=== PATIENT | male | born 1955 | race Caucasian/White ===

== ENCOUNTER 2016-07-22 15:35 | Inpatient (IN) | payer OTHER, MEDICAID ==
[~2016-07-22 15:35] MED LIST: NS 1,000 ML IV ONE
--- NOTE | 2016-07-22 15:47 | CPEKG ---
Heart Rate: 102 RR Interval: 588 P-R Interval: 196 QRSD Interval: 100 QT Interval: 380 QTC Interval: 496 P Buckland: 73 QRS Buckland: -62 T Wave Buckland: 68 EKG Severity - ABNORMAL ECG - EKG Impression: SINUS TACHYCARDIA EKG Impression: PROBABLE LEFT ATRIAL ABNORMALITY EKG Impression: LAD, CONSIDER LEFT ANTERIOR FASCICULAR BLOCK EKG Impression: BORDERLINE R WAVE PROGRESSION, ANTERIOR LEADS EKG Impression: BORDERLINE PROLONGED QT INTERVAL Electronically Signed By: Cee Lake 22-Jul-2016 16:25:08
--- NOTE | 2016-07-22 15:47 | EDPHY ---
H & P Time Seen by Provider: 07/22/16 15:35 HPI/ROS: CHIEF COMPLAINT: Seizure, AMS HISTORY OF PRESENT ILLNESS: The patient is a homeless 61 y/o male arriving via EMS, with a history of schizoaffective disorder, after a witnessed seizure this afternoon. EMS reports he was [facility] out [facility] the [facility] and bystanders witnessed tonic-clonic seizure activity. EMS says another crew contacted him this morning after a similar event, but he was able to refuse care at that time. This afternoon EMS found him disoriented without evidence of trauma or neuro deficits and transported him to the ED because the patient did not regain normal orientation. EMS further states that the patient earlier reported he has been off his Depakote since his release from residential 4 weeks ago. He tells me he does not have a seizure disorder, but has had at least one seizure previously. He denies any complaints, recent illness, or trauma, but also reports he's had chronic dyspnea and cough for over a year. His answers are suspect at this time as he answers most questions with "yes." REVIEW OF SYSTEMS: Unable to determine due to patient's disorientation. Past Medical/Surgical History: PMH includes: 1. Schizoaffective disorder 2. Hepatitis B and C Prior medical records reviewed including ED visit 07/05/13 for chest pain. Social History: Homeless. Smoker. PCP: [facility]. Physical Exam: General Appearance: Alert, no distress, SpO2 78% on room air Eyes: Pupils equal and round, no conjunctival pallor or injection ENT, Mouth: Mucous membranes moist Neck: Normal inspection Respiratory: Lungs are clear to auscultation Cardiovascular: Tachycardic regular rate and rhythm Gastrointestinal: Abdomen is soft and non-tender Neurological: A&Ox1, motor 5/5, sensory intact to light touch Skin: Warm and dry, no rash Extremities: Nontender, no pedal edema Psychiatric:flat affect Constitutional: Initial Vital Signs Temperature (C) 36.5 C 07/22/16 15:41 Heart Rate 109 H 07/22/16 15:41 Respiratory Rate 20 07/22/16 15:41 Blood Pressure 170/94 H 07/22/16 15:41 O2 Sat (%) 85 L 07/22/16 15:41 O2 Delivery Mode Nasal Cannula O2 (L/minute) 3 Allergies/Adverse Reactions: chlorpromazine HCl [From Thorazine] Allergy (Verified 12/18/12 13:04) codeine [Codeine] Allergy (Verified 12/18/12 13:04) Home Medications: Medication Instructions Recorded Acetaminophen [Tylenol Arthritis] 1,300 mg PO Q8 PRN 07/23/16 Albuterol [Ventolin Hfa Inhaler] 2 puffs IH Q4 PRN 07/23/16 Amoxicillin/Clavulanate Pot 875 mg PO BID #7 tab 07/23/16 [Augmentin 875 MG TAB (*)] Benztropine Mesylate [Cogentin] 1 mg PO BID PRN 07/23/16 Citalopram [CeleXA 20 MG] 20 mg PO DAILY 07/23/16 Divalproex [Depakote 500 MG (RX)] 1,000 mg PO BID #120 tab 07/23/16 LORazepam [Ativan (*)] 0.5 - 1 mg PO HS 07/23/16 Lidocaine 5% [Lidoderm 5% Patch 1 ea TD DAILY 07/23/16 (*)] Propranolol Sr [Inderal LA 80mg 80 mg PO DAILY 07/23/16 (*)] risperiDONE MICROSPHERES 37.5 mg IM Q14D 07/23/16 [Risperdal Consta 37.5 mg (*)] risperiDONE [RisperDAL] 1 mg PO HS #30 tab 07/23/16 Medical Decision Making - Diagnostics EKG Interpretation: The 12 lead EKG was interpreted by myself. EKG shows sinus tachycardia rate 102 with poor R-wave progression. See hard copy and/or "tracemaster" electronic copy for interpretation. Imaging Results: CXR independently reviewed by me reveals RLL infiltrate CT head reveals subtle frontal hypodensities per the radiologist Imaging: Discussed imaging studies w/ score caller Radiologist ED Course/Re-evaluation: This is a homeless 60 y/o male with a history of schizophrenia who presents to the ED disoriented after his 2nd reported seizure today. He is unable to contribute much to history due to disorientation. No visible trauma on exam. Nonfocal neuro exam other than disorientation. He is tachycardiac around 110 and initially hypoxemic at 85%. His lung sounds are clear. Plan for standard labs, EKG, and imaging to rule out chest infiltrate and acute intracranial process. I believe these are new onset seizures or possibly withdrawal seizures as we have no record of seizure disorder in our records. He will receive 500mg IV Keppra in the ED and likely require admission for further evaluation of his recurrent seizures. IV established by EMS. Labs drawn including CBC, CHEM, LFTs, EtOH, cultures. Patient placed on court monitor. Chest x-ray and head CT ordered. Hgb high at 20.2 - this is likely due to chronic hypoxemia. Chest x-ray shows right lower lobe infiltrate. 750mg IV Levaquin administered. Does not meet SIRS criteria. lactate nor ordered, since recent seizure will cause elevated lactate. Head CT shows nothing acute per Dr. Orta; possible hypodensity worth following up with an MRI at some point. EKG shows sinus tachycardia with poor R- wave progression. 1653: Spoke with Dr. Perrin, hospitalist. He accepts admission for recurrent seizures and pneumonia. 1700: Reassessed patient. He is more oriented at this time. He reports he does have a seizure disorder and is supposed to take a medication for this but he cannot remember the name of it. Differential Diagnosis: includes though not limited to status epilepticus, pulmonary embolism, pulmonary edema, hypoglycemia, ICH - Data Points Laboratory Results: Laboratory Results 07/22/16 15:40 07/22/16 15:40 Medications Given: Discontinued Medications Acetaminophen (Tylenol) 650 mg PO Q4HRS PRN PRN Reason: Pain, Mild/Fever, Can Take PO Stop: 01/18/17 17:52 Last Admin: 07/22/16 23:41 Dose: 650 mg Albuterol (Proventil Neb) 3 ml IH ONCE ONE Stop: 07/22/16 17:52 Last Admin: 07/22/16 17:57 Dose: 3 ml Albuterol/Ipratropium (Duoneb) 3 ml IH QID NARCISO Stop: 01/18/17 17:55 Last Admin: 07/23/16 15:57 Dose: 3 ml Divalproex Sodium (Depakote Er) 2,000 mg PO HS NARCISO Stop: 01/19/17 15:29 Last Admin: 07/23/16 16:42 Dose: 2,000 mg Enoxaparin Sodium (Lovenox) 40 mg SC DAILY NARCISO Stop: 01/19/17 08:59 Last Admin: 07/23/16 09:01 Dose: 40 mg Levetiracetam 500 mg/ Sodium (Chloride) 105 mls @ 420 mls/hr IV EDNOW ONE Stop: 07/22/16 16:08 Last Admin: 07/22/16 16:09 Dose: 105 mls Levofloxacin/Dextrose (Levaquin 750 Mg (Premix)) 150 mls @ 100 mls/hr IV EDNOW ONE PRN Reason: Protocol Stop: 07/22/16 18:18 Last Admin: 07/22/16 17:03 Dose: 150 mls Sodium Chloride (Ns) 1,000 mls @ 0 mls/hr IV ONCE ONE PRN Reason: Wide Open Stop: 07/22/16 15:31 Last Admin: 07/22/16 19:47 Dose: Not Given Ampicillin Sodium/Sulbactam (Sodium 3 gm/ Sodium Chloride) 100 mls @ 200 mls/ hr IV EDNOW ONE PRN Reason: Protocol Stop: 07/22/16 18:20 Last Admin: 07/22/16 19:47 Dose: Not Given Sodium Chloride (Ns) 1,000 mls @ 75 mls/hr IV CONT NARCISO Stop: 07/24/16 07:19 Last Admin: 07/23/16 11:13 Dose: 1,000 mls Ampicillin Sodium/Sulbactam (Sodium 3 gm/ Sodium Chloride) 100 mls @ 200 mls/ hr IV Q6HRS NARCISO PRN Reason: Protocol Stop: 08/22/16 00:00 Last Admin: 07/23/16 17:22 Dose: Not Given Levetiracetam (Keppra) 500 mg PO BID NARCISO Stop: 01/19/17 08:59 Last Admin: 07/23/16 09:01 Dose: 500 mg Propranolol HCl (Inderal La) 80 mg PO DAILY NARCISO Stop: 01/19/17 15:29 Last Admin: 07/23/16 16:43 Dose: 80 mg Risperidone (Risperdal) 1 mg PO HS NARCISO Stop: 01/19/17 15:29 Last Admin: 07/23/16 16:43 Dose: 1 mg Risperidone (Risperdal Consta) 37.5 mg IM Q14D NARCISO Stop: 01/19/17 15:29 Last Admin: 07/23/16 16:29 Dose: Not Given Departure - Departure Disposition: [facility] Clinical Impression: Seizure Pneumonia Qualifiers: Pneumonia type: due to unspecified organism Laterality: right Lung location: middle lobe of lung Qualified Code(s): J18.1 - Lobar pneumonia, unspecified organism Condition: Fair Report Scribed for: Cee Lake Report Scribed by: Karis Davenport Date of Report: 07/22/16 Time of Report: 15:48 Physician Review and Approval Statement: 07/22/16 15:48 Portions of this note were transcribed by a medical anthropology director. I personally performed a history, physical exam, medical decision making, and confirmed accuracy of information the transcribed note.
[2016-07-22 15:53] LABS: ADD DIFF? NO; ADD MORPH? NO; ADD SCAN? NO; ATYPICAL LYMPHOCYTE FLAG 0 (0-99); FRAGMENT RBC FLAG 0 (0-99); HEMATOCRIT 58.9 % (40.0-51.0); LEFT SHIFT FLG 20 (0-99); LIPEMIA HEMOLYSIS FLAG 90 (0-99); MEAN CELL HEMOGLOBIN 30.9 pg (27.9-34.1); MEAN CELL HEMOGLOBIN CONCENTR. 34.3 g/dL (32.4-36.7); MEAN CELL VOLUME 90.2 fL (81.5-99.8); MEAN PLATELET VOLUME 11.3 fL (8.7-11.7); PLATELET CLUMPS FLAG 10 (0-99); PLATELET COUNT 184 10^3/uL (150-400); RED BLOOD CELL COUNT 6.53 10^6/uL (4.40-6.38); RED CELL DISTRIBUTION WIDTH 13.7 % (11.5-15.2)
[2016-07-22] MEDS ORDERED: levETIRAcetam 500 MG in NS 100 ML IV ONE (15:54)
[2016-07-22 15:59] LABS: HEMOGLOBIN 20.2 g/dL (13.7-17.5)
[2016-07-22 16:11] LABS: ALANINE AMINOTRANSFERASE 61 IU/L (21-72); ALBUMIN 5.1 g/dL (3.5-5.0); ALKALINE PHOSPHATASE 106 IU/L (38-126); ANION GAP 22 mEq/L (8-16); ASPARTATE AMINOTRANSFERASE 82 IU/L (17-59); BILIRUBIN,TOTAL 1.3 mg/dL (0.1-1.4); BILIRUBIN-CONJUGATED 0.5 mg/dL (0.0-0.5); BILIRUBIN-UNCONJUGATED 0.8 mg/dL (0.0-1.1); CALCIUM 9.6 mg/dL (8.5-10.4); CARBON DIOXIDE 20 mEq/l (22-31); CHLORIDE 97 mEq/L (97-110); CREATININE 0.7 mg/dL (0.7-1.3); GLOMERULAR FILTRATION RATE > 60; GLUCOSE 141 mg/dL (70-100); POTASSIUM 3.9 mEq/L (3.5-5.2); SODIUM 139 mEq/L (134-144); TOTAL PROTEIN 8.9 g/dL (6.3-8.2)
[2016-07-22 16:21] LABS: ETHANOL SERUM < 10 mg/dL (0-10)
[2016-07-22] MEDS ORDERED: ALBUTEROL 3 ML DEYVIAL IH ONE (17:51)
[2016-07-22] MEDS ORDERED: AMPICILLIN/SULBACTAM 3 GM in NS 100 ML IV ONE (17:51)
[2016-07-22] MEDS ORDERED: ACETAMINOPHEN 325 MG TAB PO PRN (17:53)
[2016-07-22] MEDS ORDERED: ONDANSETRON 4 MG/2 ML VIAL IVP PRN (17:53)
[2016-07-22] MEDS ORDERED: ONDANSETRON DISINTEGRATING 4 MG TAB PO PRN (17:53)
[2016-07-22] MEDS ORDERED: ALBUTEROL 3 ML DEYVIAL IH PRN (17:56)
[2016-07-22] MEDS: IPRATROPIUM/ALBUTEROL 3 ML DEYVIAL IH SCH ×2 (20:15→22:28)
--- NOTE | 2016-07-22 21:24 | GHP ---
[f rep st] HISTORY AND PHYSICAL DATE OF ADMISSION: 07/22/2016 CHIEF COMPLAINT: Seizure. HISTORY OF PRESENT ILLNESS: The patient is postictal and little bit somnolent and thus history is l imited as he was not very talkative. He is a 60-year-old male with a history of schizoaffective dis order, is homeless. He also has a history of chronic marijuana use and cocaine in the past. Appare ntly he had a witnessed seizure this afternoon. He was walking out of the [facility] and bystanders saw a tonic-clonic seizure. This was after he had a previous seizure in the morning in [facility] he called EMS, but he refused care. Apparently, patient reported that he had been off his Depa kote since his release from [facility] 4 weeks ago. He states that he has had a seizure several years ago prior. He also complains of some shortness of breath and cough. He is not very forthcoming. He d enies any fevers or chills. He denies alcohol use. He denies any drug use other than marijuana. H e denies any headache, focal weakness, fevers or chills. REVIEW OF SYSTEMS: Limited review of systems was obtained secondary to the patient's postictal stat e. Pertinent positives as noted in the HPI. PAST MEDICAL HISTORY: 1. Schizoaffective disorder. 2. Hepatitis B and C. SOCIAL HISTORY: Homeless. Smokes marijuana daily. FAMILY HISTORY: Unable to obtain. PHYSICAL EXAMINATION: VITAL SIGNS: Afebrile, blood pressure 124 heart rate is 95, oxyge n saturation was 85% on room air and on 2 L. GENERAL: The patient is somnolent, but sheila kes with some vigorous stimuli, but no apparent distress HEENT: Nonicteric sclerae. Extraocular m uscles intact. Moist mucous membranes. NECK: Supple. No thyromegaly. LUNGS: Good effort. Some coarse expiratory wheezes and some scattered rhonchi. CARDIOVASCULAR: Regular rate and rhythm. N o murmurs, gallops. ABDOMEN: Positive bowel sounds. Soft, nontender, nondistended. No hepatosple nomegaly. EXTREMITIES: No clubbing, cyanosis, or edema. SKIN: There is a petechial small papular rash on his upper shoulders. He has a winnie complexion. NEUROLOGIC: Answers questions, moving al l 4 extremities. PSYCH: Unable to be assessed. LABORATORY: White count 9, hemoglobin is 20 with a hematocrit of 58. Sodium 139, potassium 3.9, al cohol level is negative. CT scan of the head: There is a subtle hyperdensity in the frontal subcortical white matter which co uld be microvascular ischemic disease, but could also have other etiology. Chest x-ray shows some interstitial prominence bilaterally. Personally reviewed and interpreted. ASSESSMENT: 1. This is a 60-year-old male presenting with 2 seizures today. Plan: The patient has been given Keppra and will continue this in the emergency department. I am not sure what the cause of this is. Stopping Depakote 4 weeks ago is probably too far out. He denies alcohol use but his AST is littl e bit elevated at 82. His alcohol is negative. There is an abnormality in his CT scan. We will go ahead and get an MRI. We will get a neurology consult in the morning as well. 2. Probable chronic obstructive pulmonary disease exacerbation. We will add nebulizer treatments. I am going to hold off on steroids. His primary element of infection is bronchitis as well and tab l add IV Unasyn. 3. Possible early pneumonia. Will continue on Unasyn to cover aspiration and for bronchitis. 4. Polycythemia. The patient is probably chronically hypoxic due to chronic obstructive pulmonary disease. Probably related to his marijuana use. Will have a phlebotomy done to try to bring his he matocrit down a little bit. Will give a little bit of IV fluids today and see where his hemoglobin is tomorrow. We may do a therapeutic phlebotomy. 5. Schizoaffective disorder. 6. Hepatitis B and C. 7. Homelessness. 8. Chronic marijuana use. 9. Admission: The patient will be admitted under full admission status. Case was discussed with the emergency room physician. Old records are reviewed and summarized in e history of present illness. /[id number]/MODL
[2016-07-22] MEDS: NS 1,000 ML IV SCH (22:19)
[2016-07-22] MEDS: AMPICILLIN/SULBACTAM 3 GM in NS 100 ML IV SCH (23:41)
[2016-07-23] MEDS ORDERED: DIVALPROEX NA 500 MG TAB PO SCH
[2016-07-23 05:16] LABS: % IMMATURE GRANULYOCYTES 0.3 % (0.0-1.1); ABSOLUTE IMMATURE GRANULOCYTES 0.02 10^3/uL (0.00-0.10); ADD DIFF? NO; ADD MORPH? NO; ADD SCAN? NO; FRAGMENT RBC FLAG 0 (0-99); LEFT SHIFT FLG 0 (0-99); LIPEMIA HEMOLYSIS FLAG 90 (0-99); MEAN CELL HEMOGLOBIN 31.5 pg (27.9-34.1); MEAN CELL HEMOGLOBIN CONCENTR. 35.1 g/dL (32.4-36.7)
[2016-07-23 05:31] LABS: ALANINE AMINOTRANSFERASE 49 IU/L (21-72); ALBUMIN 3.1 g/dL (3.5-5.0); ALKALINE PHOSPHATASE 79 IU/L (38-126); ANION GAP 8 mEq/L (8-16); ASPARTATE AMINOTRANSFERASE 41 IU/L (17-59); BILIRUBIN,TOTAL 0.6 mg/dL (0.1-1.4); CALCIUM 8.4 mg/dL (8.5-10.4); CARBON DIOXIDE 24 mEq/l (22-31); CHLORIDE 104 mEq/L (97-110); CREATININE 0.6 mg/dL (0.7-1.3); GLOMERULAR FILTRATION RATE > 60; GLUCOSE 222 mg/dL (70-100); POTASSIUM 3.6 mEq/L (3.5-5.2); SODIUM 136 mEq/L (134-144); TOTAL PROTEIN 5.8 g/dL (6.3-8.2)
[2016-07-23] MEDS: AMPICILLIN/SULBACTAM 3 GM in NS 100 ML IV SCH ×4 (05:31→17:22)
[2016-07-23 05:34] LABS: ATYPICAL LYMPHOCYTE FLAG 20 (0-99); HEMATOCRIT 45.9 % (40.0-51.0); HEMOGLOBIN 16.1 g/dL (13.7-17.5); MEAN CELL VOLUME 89.8 fL (81.5-99.8); MEAN PLATELET VOLUME 11.8 fL (8.7-11.7); PLATELET CLUMPS FLAG 0 (0-99); PLATELET COUNT 133 10^3/uL (150-400); RED BLOOD CELL COUNT 5.11 10^6/uL (4.40-6.38); RED CELL DISTRIBUTION WIDTH 13.7 % (11.5-15.2)
[2016-07-23] MEDS: IPRATROPIUM/ALBUTEROL 3 ML DEYVIAL IH SCH ×3 (05:50→15:57)
[2016-07-23] MEDS ORDERED: ENOXAPARIN 40 MG/0.4 ML SYR SC SCH (09:00)
[2016-07-23] MEDS ORDERED: levETIRAcetam 500 MG TAB PO SCH (09:00)
[2016-07-23] MEDS: NS 1,000 ML IV SCH (11:13)
[2016-07-23 11:52] VITALS: BP 99/67; TEMP 98.6
[2016-07-23] MEDS ORDERED: NON-FORMULARY NEW DRUG (Albuterol 2 PUFFS) IH PRN (15:09)
[2016-07-23] MEDS ORDERED: BENZTROPINE MESYLATE 1 MG TAB PO PRN (15:09)
[2016-07-23] MEDS ORDERED: PROPRANOLOL SR 80 MG CAP PO SCH (15:30)
[2016-07-23] MEDS ORDERED: risperiDONE 1 MG TAB PO SCH ×2 (15:30)
[2016-07-23] MEDS ORDERED: risperiDONE MICROSPHERES 37.5 MG/2 ML SYR IM SCH (15:30)
[2016-07-23] MEDS ORDERED: DIVALPROEX ER 500 MG TAB PO SCH (15:30)
[2016-07-23] MEDS ORDERED: ALBUTEROL 60 PUFFS/8 GM MDI IH PRN (15:34)
--- NOTE | 2016-07-23 15:55 | GDS ---
[f rep st] DISCHARGE SUMMARY DIAGNOSES: 1. Seizure. 2. History of schizophrenia. 3. Possible pneumonia. 4. Homelessness. 5. Polycythemia. 6. Chronic obstructive pulmonary disease. HOSPITAL COURSE: A 60-year-old man who presented after having 2 seizures. He had been [facility] a month ago and had stopped taking his Depakote at that point. This is likely the etiology. Will restart him on Depakote, 1 g b.i.d. per Neurology's recommendations, and have him follow up [facility] Dr. Ray of Neurology. He has schizoaffective disorder. I do not believe that he has been taking his Risperdal recently. I prescribed this for him. I do not think that he is gravely disabled at this point. Possible aspiration pneumonia. Will give him an additional 7 days of Augmentin. He received Unasyn as an inpatient. Given his acute presentation, I think he recovered more quickly than would have been expected. BILLING: I spent more than 30 minutes on the day of discharge coordinating care. /[id number]/MODL
[2016-07-23 16:03] VITALS: PULSE 79; RESP 20; O2SAT 93
--- NOTE | 2016-07-23 16:07 | NEUROPROG ---
Assessment: CC: Dr. Cathy Perrin consulted neurology for new onset seizure. Results placed in the EMR for his review. HPI: This 60M patient was initially seen 07/23/16 as an inpatient consult at [facility] for a new onset seizure on 07/22/16. He reported he was released from retirement 4 weeks ago and stopped depakote at that time (history of previous seizures in years past). He had two generalized seizures on 07/22/16 so was brought to the ER and admitted with post-ictal confusion. He denied drug use other than marijuana recently. Hospitalist note reported he may have COPD and possibly early pneurmonia as well. The patient himself does not provide much additinoal history. PMHx: schizoaffective disorder, Hep B and C, COPD? SHx: homeless, chronic marijuana user ROS: Pt denied acute fever, total vision loss, active severe chest pain, respiratory failure, total body severe rash, total bowel/bladder incontinence, psychosis, active seizures, or active bleeding O: (Please note, pt declined most testing and would not come out of the shower for 1 hour, with the help of the nurse he stepped out of the shower but would not allow a full examination. I feel likely his psychiatric disorder is the cause of this strange behavior) VS bp 124/67 P 83 RR16 Satting 92% on 3L NC Temp 36.8C General: no acute distress Eyes: cannot visualized optic disk Heart: pt declined testing Lungs: pt declined testing Neurologic Exam: Mental Status: alert, oriented to name but pt will not provide any other information CN: eyes conjugate, no facial weakness seen, hearing intact, no dysarthria (pt declined all other testing) Motor: no focal weakness seen, pt declined further testing Sensory: pt declined testing Coord: no ataxia seen Gait: normal casual gait Reflexes: pt declined testing Labs: 07/23/16- CBC Plt 133L, alcohol neg, CMP Cr 0.6L GLuc 222 Ca 8.4L Tot Prot 5.8L Alb 3.1L Rads: 07/22/16- Brain MRI w/o con: mod CMVD (I personally visualized the images on 07/23) Assessment: 1. Seizure Disorder: normal brain MRI on 07/22/16. High re-occurrence risk so recommend AED's at this time. 2. Homeless 3. Schizoaffective Disorder Plan: - Change Keppra 500mg bid (which can worsen psych disease) to Depakote 1,000mg bid as he was on this before and it can address seizures and psych disease - Seizure precautions and no driving until seizure free for 90 days - F/U in neurology clinic in 2-4 weeks, consider EEG at that time Neurology will sign off, please feel free to contact me for any questions or needs Objective: Vital Signs Temp Pulse Resp BP Pulse Ox 37.0 C 84 18 99/67 L 98 07/23/16 11:51 07/23/16 11:51 07/23/16 11:51 07/23/16 11:51 07/23/16 11:51 Laboratory Results 07/23/16 04:45 07/23/16 04:45 07/22/16 07/23/16 07/24/16 05:59 05:59 05:59 Intake Total 2900 Output Total 900 Balance 2900 -900 Allergies/Adverse Reactions: chlorpromazine HCl [From Thorazine] Allergy (Verified 12/18/12 13:04) codeine [Codeine] Allergy (Verified 12/18/12 13:04)
[2016-07-23] MEDS ORDERED: LORazepam 1 MG TAB PO SCH (21:00)
[2016-07-24] MEDS ORDERED: LIDOCAINE 5% 1 EA PATCH TD SCH (09:00)
[2016-07-24] MEDS ORDERED: CITALOPRAM 20 MG TAB PO SCH (09:00)
== END 2016-07-23 18:38 | disposition home or self-care (01) | DRG 100 ==
LOC: EDUNIT# → F3N 18:18
PROVIDERS: ADMIT Internal Medicine; ATTEND Internal Medicine
DX: R56.9 Unspecified convulsions (principal); J69.0 Pneumonitis due to inhalation of food and vomit; J44.9 Chronic obstructive pulmonary disease, unspecified; D75.1 Secondary polycythemia; Z59.0 Homelessness; F12.90 Cannabis use, unspecified, uncomplicated; F25.9 Schizoaffective disorder, unspecified; B19.10 Unspecified viral hepatitis B without hepatic coma; B19.20 Unspecified viral hepatitis C without hepatic coma
CPT/HCPCS: 96365; G0480; J0295; J1650; J1953; J1956

== ENCOUNTER 2016-07-26 13:14 | Emergency (ER) | payer OTHER, MEDICAID ==
[2016-07-26 14:04] LABS: % IMMATURE GRANULYOCYTES 0.4 % (0.0-1.1); ABSOLUTE IMMATURE GRANULOCYTES 0.03 10^3/uL (0.00-0.10); ADD DIFF? NO; ADD MORPH? NO; ADD SCAN? NO; ATYPICAL LYMPHOCYTE FLAG 20 (0-99); FRAGMENT RBC FLAG 0 (0-99); HEMATOCRIT 52.2 % (40.0-51.0); HEMOGLOBIN 18.2 g/dL (13.7-17.5); LEFT SHIFT FLG 10 (0-99); LIPEMIA HEMOLYSIS FLAG 90 (0-99); MEAN CELL HEMOGLOBIN 30.9 pg (27.9-34.1); MEAN CELL HEMOGLOBIN CONCENTR. 34.9 g/dL (32.4-36.7); MEAN CELL VOLUME 88.6 fL (81.5-99.8); MEAN PLATELET VOLUME 10.9 fL (8.7-11.7); PLATELET CLUMPS FLAG 10 (0-99); PLATELET COUNT 156 10^3/uL (150-400); RED BLOOD CELL COUNT 5.89 10^6/uL (4.40-6.38); RED CELL DISTRIBUTION WIDTH 13.7 % (11.5-15.2)
[2016-07-26 14:28] LABS: ANION GAP 10 mEq/L (8-16); CALCIUM 9.4 mg/dL (8.5-10.4); CARBON DIOXIDE 28 mEq/l (22-31); CHLORIDE 99 mEq/L (97-110); CREATININE 0.6 mg/dL (0.7-1.3); ETHANOL SERUM < 10 mg/dL (0-10); GLOMERULAR FILTRATION RATE > 60; GLUCOSE 170 mg/dL (70-100); SODIUM 137 mEq/L (134-144)
--- NOTE | 2016-07-26 14:31 | EDPHY ---
Mental Health General Previous Psychiatric History: schizophrenia Smoking Status: Current every day smoker Time Patient Placed on M1 Hold: 12:13 Time of Transfer of Care: 16:[address] To Dr:: Madeleine <Cira Law - Last Filed: 07/26/16 16:08> Time of Transfer of Care: 22:32 To Dr:: tarsha <Andrei Salvador - Last Filed: 07/26/16 22:31> <Valentino Botello E - Last Filed: 07/27/16 05:30> <Filippo Palencia S - Last Filed: 07/27/16 14:24> Narrative: CHIEF COMPLAINT: M1 hold HISTORY OF PRESENT ILLNESS: 60-year-old male presents to the emergency department on an M1 hold after he presented to [facility] talking nonsensically with rapid speech not making sense. Patient has a history of schizophrenia. He is homeless. Patient has a seizure disorder. He will intermittently answer my questions. He states he is taking his medications as prescribed. Patient reports he has "head to toe body pain". Patient was admitted to the hospital 3 days ago for to witnessed seizures. He has a seizure history and stopped taking his Depakote 4 weeks prior to arrival [facility] Patient was seen by Neurology in the hospital and discharged with a prescription for Depakote and Risperdal along with Augmentin to treat a pneumonia. REVIEW OF SYSTEMS: Unable to obtain due to mental status. Physical Exam Gen: Awake, disheveled, sunburn to face and hands HEENT: PERRL, dry mucous membranes NECK: no meningismus CV: Regular rate and regular rhythm PULM: CTAB, no wheezes, coughs with deep breath ABDOMEN: soft, non tender to palpation, BS present BACK: No CVA tenderness NEURO: Follows commands, moves all extremities, no facial asymmetry EXTREMITIES: normal appearing SKIN: Sunburn to face and hands PSYCH: Speaking nonsensically, rapid speech. (Cira Law) The patient is turned over to Dr. Botello at shift change pending placement. (Andrei Salvador) Care the patient was assumed from Dr. Botello at 7:00 a.m.. Inpatient placement is pending. I reviewed Dr. Ailyn Olguin discharge summary dated 01/29 which he was given a diagnosis at discharge of schizoaffective disorder after inpatient psychiatric hospitalization. 725: Patient is discharged chart reviewed and he was prescribed Augmentin 875 p. o. twice daily #7 Tablets on the 23 of July at previous discharge. He is given what should be is last dose this morning. 1150: Received 10 mg IM Haldol for continued agitation despite additional oral 5 mg Zyprexa. Additional medications including 2 mg Ativan. 1247: The patient will be transferred to [facility] for inpatient psychiatric hospital bed not available at this facility, in stable condition; accepting physician is Dr. Chris Jordan. (Filippo Palencia) Medical Decision Makin-Report passed on to Dr. Salvador at the end of my shift pending mental health evaluation. (Cira Law) PHYSICIAN DOCUMENTATION: The patient was evaluated and managed by the Physician [facility]. My co- signature indicates that I have reviewed this chart and I agree with the findings and plan of care as documented. I am the secondary supervising physician. The patient presents to the ED for abnormal behavior from presumed underlying psychiatric disease. The patient has been medically cleared for psychiatric admission. The update at 5:00 p.m.: The patient was evaluated by the psychiatric service who is recommending inpatient psychiatric hospitalization. Disposition currently pending. (Andrei Salvador) The patient's care was transferred to ms at 11:00 p.m.. The patient was becoming mildly combative. He was given Zyprexa and Ativan. He has been evaluated and medically cleared and is currently awaiting psychiatric placement. We will also give him his home medications. Patient slept through the night. No significant complaints. We continue to await psychiatric placement. Care transferred to Dr. Filippo Palencia at shift change. (Valentino Botello) - Objective Vital Signs: Initial Vital Signs Temperature (C) 36.8 C 07/26/16 13:36 Heart Rate 113 H 07/26/16 13:36 Respiratory Rate 18 07/26/16 13:36 Blood Pressure 146/93 H 07/26/16 13:36 O2 Sat (%) 93 07/26/16 13:36 O2 Delivery Mode Room Air Allergies/Adverse Reactions: chlorpromazine HCl [From Thorazine] Allergy (Verified 12/18/12 13:04) codeine [Codeine] Allergy (Verified 12/18/12 13:04) Home Medications: Medication Instructions Recorded Acetaminophen [Tylenol Arthritis] 1,300 mg PO Q8 PRN 07/23/16 Albuterol [Ventolin Hfa Inhaler] 2 puffs IH Q4 PRN 07/23/16 Amoxicillin/Clavulanate Pot 875 mg PO BID #7 tab 07/23/16 [Augmentin 875 MG TAB (*)] Benztropine Mesylate [Cogentin] 1 mg PO BID PRN 07/23/16 Citalopram [CeleXA 20 MG] 20 mg PO DAILY 07/23/16 Divalproex [Depakote 500 MG (RX)] 1,000 mg PO BID #120 tab 07/23/16 LORazepam [Ativan (*)] 0.5 - 1 mg PO HS 07/23/16 Lidocaine 5% [Lidoderm 5% Patch 1 ea TD DAILY 07/23/16 (*)] Propranolol Sr [Inderal LA 80mg 80 mg PO DAILY 07/23/16 (*)] risperiDONE MICROSPHERES 37.5 mg IM Q14D 07/23/16 [Risperdal Consta 37.5 mg (*)] risperiDONE [RisperDAL] 1 mg PO HS #30 tab 07/23/16 Medications Given: Discontinued Medications Amoxicillin/Clavulanate Potassium (Augmentin 875mg) 875 mg PO EDNOW ONE PRN Reason: Protocol Stop: 07/27/16 00:25 Last Admin: 07/27/16 00:42 Dose: 875 mg Amoxicillin/Clavulanate Potassium (Augmentin 875mg) 875 mg PO EDNOW ONE PRN Reason: Protocol Stop: 07/27/16 07:27 Last Admin: 07/27/16 09:27 Dose: 875 mg Divalproex Sodium (Depakote) 1,000 mg PO BID NARCISO Stop: 01/23/17 00:29 Last Admin: 07/27/16 09:27 Dose: 1,000 mg Haloperidol Lactate (Haldol Injection) 10 mg IVP EDNOW ONE Stop: 07/27/16 11:45 Last Admin: 07/27/16 11:40 Dose: 10 mg Lorazepam (Ativan Injection) 1 mg IVP EDNOW ONE Stop: 07/26/16 23:52 Last Admin: 07/26/16 23:56 Dose: 1 mg Lorazepam (Ativan) 2 mg PO EDNOW ONE Stop: 07/27/16 12:50 Last Admin: 07/27/16 12:53 Dose: 2 mg Olanzapine (Zyprexa Zydis) 5 mg PO EDNOW ONE Stop: 07/26/16 23:51 Last Admin: 07/26/16 23:56 Dose: 5 mg Olanzapine (Zyprexa Zydis) 5 mg PO EDNOW ONE Stop: 07/27/16 10:42 Last Admin: 07/27/16 10:50 Dose: 5 mg Olanzapine (Olanzapine) 5 mg PO ONCE ONE Stop: 07/27/16 11:00 Last Admin: 07/27/16 11:10 Dose: Not Given Olanzapine (Zyprexa Zydis) 5 mg PO EDNOW ONE Stop: 07/27/16 11:11 Last Admin: 07/27/16 11:11 Dose: 5 mg Risperidone (Risperdal) 1 mg PO ONCE ONE Stop: 07/27/16 00:22 Last Admin: 07/27/16 00:42 Dose: 1 mg Laboratory Results: Laboratory Results 07/26/16 13:50 07/26/16 13:50 Departure <Cira Law - Last Filed: 07/26/16 16:08> <Andrei Salvador - Last Filed: 07/26/16 22:31> <Valentino Botello - Last Filed: 07/27/16 05:30> <Filippo Palencia - Last Filed: 07/27/16 14:24> - Departure Disposition: Other Psych, Not [facility] Clinical Impression: Schizoaffective disorder Qualifiers: Schizoaffective disorder type: unspecified Qualified Code(s): F25.9 - Schizoaffective disorder, unspecified Condition: Good Referrals: NONE *PRIMARY CARE P,. [Primary Care Provider] - As per Instructions
[2016-07-26 23:27] VITALS: TEMP 98.2
[2016-07-26] MEDS ORDERED: OLANZapine DISINTEGR 5 MG TAB ONE (23:49)
[2016-07-26] MEDS ORDERED: LORazepam 1 MG TAB ONE (23:49)
[2016-07-26] MEDS ORDERED: OLANZapine DISINTEGR 5 MG TAB PO ONE (23:50)
[2016-07-26] MEDS ORDERED: LORazepam 2 MG/ML INJ IVP ONE (23:51)
[2016-07-27] MEDS ORDERED: AMOXICILLIN/CLAVULANATE POT 875/125 MG TAB PO ONE ×3 (00:21→07:26)
[2016-07-27] MEDS ORDERED: risperiDONE 1 MG TAB PO ONE (00:21)
[2016-07-27] MEDS: DIVALPROEX NA 500 MG TAB PO SCH ×2 (00:42→09:27)
[2016-07-27 08:02] VITALS: BP 137/77
[2016-07-27] MEDS ORDERED: OLANZapine DISINTEGR 5 MG TAB PO ONE ×2 (10:41→11:10)
[2016-07-27] MEDS ORDERED: OLANZapine 5 MG TAB PO ONE (10:59)
[2016-07-27] MEDS ORDERED: OLANZapine DISINTEGR 5 MG TAB ONE (11:04)
[2016-07-27] MEDS ORDERED: HALOPERIDOL LACT 5 MG/ML INJ ONE (11:40)
[2016-07-27] MEDS ORDERED: HALOPERIDOL LACT 5 MG/ML INJ IVP ONE (11:44)
[2016-07-27] MEDS ORDERED: LORazepam 1 MG TAB PO ONE (12:49)
[2016-07-27 13:43] VITALS: PULSE 105; RESP 16; O2SAT 95
== END 2016-07-27 14:06 ==
LOC: EDUNIT#
DX: F25.9 Schizoaffective disorder, unspecified (principal); F17.200 Nicotine dependence, unspecified, uncomplicated
CPT/HCPCS: 80305; 96374; G0480

== ENCOUNTER 2018-05-18 11:09 | Inpatient (IN) | payer OTHER, MEDICAID ==
--- NOTE | 2018-05-18 11:19 | EDPHY ---
HPI/HX/ROS/PE/MDM Narrative: CHIEF COMPLAINT: Seizure HPI: The patient is a 62 y/o male with a history of schizophrenia arriving via EMS for evaluation after a witnessed seizure this morning. His friend described tonic-clonic activity to EMS followed by incontinence and denied any preceding trauma. The patient is altered on my assessment and unable to contribute significantly to history. He denies pain. He is generally nonsensical during interview. REVIEW OF SYSTEMS: Unobtainable at this time due to altered mentation. PMH: Schizophrenia, seizures, psychosis, bipolar disorder, prior M1 holds SOCIAL HISTORY: Homeless Prior medical records reviewed including ED visit 07/26/16 for M1 hold. PHYSICAL EXAM: General:Patient is alert, in no acute distress. Disheveled. ENT:Eyes are normal to inspection. ENT inspection normal. Neck: Normal inspection. Full range of motion. Respiratory:No respiratory distress. Breath sounds normal bilaterally. Cardiovascular: Tachycardic regular rate and rhythm. Strong peripheral pulses. Normal cap refill. Abdomen:The abdomen is nontender to palpation. There are no peritoneal signs. Incontinent of urine. Back: Normal to inspection. No tenderness to palpation. Skin: Normal color. No rash. Warm and dry. Extremities: Normal appearance. Full range of motion. Neuro: Oriented x2. Movement in all extremities. Nonsensical rapid speech. ( William Dillon) ED Course: This is a 62 y/o male with a history of schizophrenia, bipolar disorder, and prior M1 holds for psychosis who presents altered and incontinent after a witnessed seizure this morning. No apparent acute trauma on exam. He is speaking nonsensically and unable to contribute much to history. No focal neuro deficits. Plan for IV, labs, symptom management. 1L IV NS and 1mg IV Ativan ordered. 1150: 5mg IV Haldol ordered. Labs show elevated Hgb and Hct. (William Dillon) 6:27 p.m.- Patient slept for the last several hours and now is awake and alert. He was able to walk without difficulty. He says that he has had seizures before. Though, he is not on any medication for this and is not supposed to be he says. He would like to be discharged and says he will be able to return to the homeless alf. (Sonja Ariza) - Data Points Laboratory Results: Laboratory Results 05/18/18 11:30 05/18/18 11:30 05/18/18 05/18/18 11:30 11:30 WBC 11.06 10^3/uL H 10^3/uL (3.80-9.50) RBC 6.54 10^6/uL H 10^6/uL (4.40-6.38) Hgb 20.6 g/dL H* g/dL (13.7-17.5) Hct 61.6 % H* % (40.0-51.0) MCV 94.2 fL fL (81.5-99.8) MCH 31.5 pg pg (27.9-34.1) MCHC 33.4 g/dL g/dL (32.4-36.7) RDW 14.3 % % (11.5-15.2) Plt Count 154 10^3/uL 10^3/uL (150-400) MPV 11.4 fL fL (8.7-11.7) Neut % (Auto) 72.5 % % (39.3-74.2) Lymph % (Auto) 17.3 % % (15.0-45.0) [place] % (Auto) 9.0 % % (4.5-13.0) Eos % (Auto) 0.2 % L % (0.6-7.6) Baso % (Auto) 0.5 % % (0.3-1.7) Nucleat RBC Rel Count 0.0 % % (0.0-0.2) Absolute Neuts (auto) 8.03 10^3/uL H 10^3/uL (1.70-6.50) Absolute Lymphs (auto) 1.91 10^3/uL 10^3/uL (1.00-3.00) Absolute Monos (auto) 0.99 10^3/uL H 10^3/uL (0.30-0.80) Absolute Eos (auto) 0.02 10^3/uL L 10^3/uL (0.03-0.40) Absolute Basos (auto) 0.06 10^3/uL 10^3/uL (0.02-0.10) Absolute Nucleated RBC 0.00 10^3/uL 10^3/uL (0-0.01) Immature Gran % 0.5 % % (0.0-1.1) Immature Gran # 0.05 10^3/uL 10^3/uL (0.00-0.10) Sodium 140 mEq/L mEq/L (135-145) Potassium 3.6 mEq/L mEq/L (3.5-5.2) Chloride 97 mEq/L mEq/L (97-110) Carbon Dioxide 21 mEq/l L mEq/l (22-31) Anion Gap 22 mEq/L H mEq/L (6-14) BUN 22 mg/dL mg/dL (7-23) Creatinine 1.0 mg/dL mg/dL (0.7-1.3) Estimated GFR > 60 Glucose 159 mg/dL H mg/dL (70-100) Calcium 9.9 mg/dL mg/dL (8.5-10.4) Medications Given: Discontinued Medications Haloperidol Lactate (Haldol Injection) 5 mg IVP EDNOW ONE Stop: 05/18/18 11:50 Last Admin: 05/18/18 11:52 Dose: 5 mg Sodium Chloride (Ns) 1,000 mls @ 0 mls/hr IV EDNOW ONE; Wide Open PRN Reason: Protocol Stop: 05/18/18 11:38 Last Admin: 05/18/18 11:44 Dose: 1,000 mls Lorazepam (Ativan Injection) 1 mg IVP EDNOW ONE Stop: 05/18/18 11:39 Last Admin: 05/18/18 11:41 Dose: 1 mg General Time Seen by Provider: 05/18/18 11:13 Initial Vital Signs: Initial Vital Signs Temperature (C) 37.2 C 05/18/18 11:23 Heart Rate 128 H 05/18/18 11:23 Respiratory Rate 16 05/18/18 11:23 Blood Pressure 129/92 H 05/18/18 11:23 O2 Sat (%) 98 05/18/18 11:23 O2 Delivery Mode Nasal Cannula O2 (L/minute) 2 Allergies/Adverse Reactions: chlorpromazine HCl [From Thorazine] Allergy (Verified 05/18/18 11:23) codeine [Codeine] Allergy (Verified 05/18/18 11:23) Home Medications: Medication Instructions Recorded Acetaminophen [Tylenol Arthritis] 1,300 mg PO Q8 PRN 07/23/16 Albuterol [Ventolin Hfa Inhaler] 2 puffs IH Q4 PRN 07/23/16 Amoxicillin/Clavulanate Pot 875 mg PO BID #7 tab 07/23/16 [Augmentin 875 MG TAB (*)] Benztropine Mesylate [Cogentin] 1 mg PO BID PRN 07/23/16 Citalopram [CeleXA 20 MG] 20 mg PO DAILY 07/23/16 Divalproex [Depakote 500 MG (RX)] 1,000 mg PO BID #120 tab 07/23/16 LORazepam [Ativan (*)] 0.5 - 1 mg PO HS 07/23/16 Lidocaine 5% [Lidoderm 5% Patch] 1 ea TD DAILY 07/23/16 Propranolol Sr [Inderal LA 80mg 80 mg PO DAILY 07/23/16 (*)] risperiDONE MICROSPHERES 37.5 mg IM Q14D 07/23/16 [Risperdal Consta 37.5 mg (*)] risperiDONE [RisperDAL] 1 mg PO HS #30 tab 07/23/16 Departure - Departure Disposition: Home, Routine, Self-Care Clinical Impression: Seizure Condition: Good Instructions: Recurrent Seizures in Adults (ED) Referrals: Abundio Rushing MD [Medical Doctor] - As per Instructions Report Scribed for: William Dillon Report Scribed by: Karis Davenport Date of Report: 05/18/18 Time of Report: 11:14 Physician Review and Approval Statement: Portions of this note were transcribed by an ED scribe. I personally performed the history, physical exam, and medical decision making; and confirm the accuracy of the information in the transcribed note.
[2018-05-18] MEDS ORDERED: NS 1,000 ML IV ONE (11:37)
[2018-05-18] MEDS ORDERED: LORazepam 2 MG/ML INJ ONE (11:38)
[2018-05-18] MEDS ORDERED: LORazepam 2 MG/ML INJ IVP ONE (11:38)
[2018-05-18] MEDS ORDERED: HALOPERIDOL LACT 5 MG/ML INJ IVP ONE (11:49)
[2018-05-18 12:14] LABS: PLATELET COUNT 154 10^3/uL (150-400)
[2018-05-18] MEDS ORDERED: IPRATROPIUM/ALBUTEROL 3 ML DEYVIAL IH ONE (18:37)
[2018-05-18] MEDS ORDERED: AZITHROMYCIN 250 MG TAB PO ONE (19:16)
[2018-05-18] MEDS ORDERED: methylPREDNISolone SOD SUCC 125 MG/2 ML VIAL IVP ONE (19:16)
[2018-05-18] MEDS ORDERED: AMPICILLIN/SULBACTAM 3 GM in NS 100 ML IV ONE (19:31)
[2018-05-18] MEDS ORDERED: ONDANSETRON DISINTEGRATING 4 MG TAB PO PRN (21:19)
[2018-05-18] MEDS ORDERED: ALBUTEROL 3 ML DEYVIAL IH PRN (21:19)
[2018-05-18] MEDS ORDERED: ONDANSETRON 4 MG/2 ML VIAL IVP PRN (21:19)
[2018-05-18] MEDS ORDERED: ACETAMINOPHEN 325 MG TAB PO PRN (21:19)
[2018-05-18] MEDS ORDERED: LORazepam 2 MG/ML INJ IVP PRN (21:25)
--- NOTE | 2018-05-18 21:32 | PDGENHP ---
History and Physical - Chief Complaint seizure, later developed hypoxia - History of Present Illness 62 yo homeless male with h/o schizoaffective disorder, prior seizures, and COPD presents to ED after a witnessed seizure this am. He stays at the [facility]. He has not been on anti-epileptics, but was previously treated with depakote. He had a normal brain MRI in 2017 at the time of onset of his seizures. During his time in the ED, he became agitated and received IV Ativan and IV Haldol. He was then quite sedated and slept for several hours. When he awoke, he ambulated and his O2 sat dropped to 79%. It O2 sat on arrival this am was 98% on room air. There was some concern for aspiration in the ED and he received IV Unasyn as well as nebulizers. Upon my evaluation, he is a poor historian. He has a productive cough and a bit of wheezing. He denies CP. He is afebrile. Given his new hypoxemia in the ED, he is admitted for further evaluation. History Information - Allergies/Home Medication List Allergies/Adverse Reactions: chlorpromazine HCl [From Thorazine] Allergy (Verified 05/18/18 11:23) codeine [Codeine] Allergy (Verified 05/18/18 11:23) Home Medications: Ibuprofen [Motrin (*)] 1,200 mg PO BID PRN 05/18/18 [Last Taken Unknown] I have personally reviewed and updated: family history, medical history, social history, surgical history - Past Medical History COPD, seizures - Surgical History Reports: no pertinent surgical hx - Family History Positive for: non-pertinent - Social History Smoking Status: Current every day smoker Alcohol Use: Rarely Drug Use: None Additional social history: Lives at [facility], denies etoh use. Review of Systems Review of Systems: ROS: 10pt was reviewed & negative except for what was stated in HPI & below Physical Exam Physical Exam: Temp Pulse Resp BP Pulse Ox 36.8 C 109 H 18 126/79 H 88 L 05/18/18 21:00 05/18/18 21:00 05/18/18 21:00 05/18/18 21:00 05/18/18 21:00 O2 (L/minute) 2 Constitutional: no apparent distress Eyes: PERRL Ears, Nose, Mouth, Throat: moist mucous membranes Cardiovascular: regular rate and rhythym Respiratory: no respiratory distress, reduced air movement, expiratory wheeze, rhonchi Gastrointestinal: normoactive bowel sounds, soft, non-tender abdomen Skin: warm Musculoskeletal: full muscle strength Neurologic: AAOx3 Psychiatric: interacting appropriately Lab Data & Imaging Review 05/18/18 11:30 05/18/18 11:30 WBC 11.06 10^3/uL (3.80-9.50) H 05/18/18 11:30 RBC 6.54 10^6/uL (4.40-6.38) H 05/18/18 11:30 Hgb 20.6 g/dL (13.7-17.5) H* 05/18/18 11:30 Hct 61.6 % (40.0-51.0) H* 05/18/18 11:30 MCV 94.2 fL (81.5-99.8) 05/18/18 11:30 MCH 31.5 pg (27.9-34.1) 05/18/18 11:30 MCHC 33.4 g/dL (32.4-36.7) 05/18/18 11:30 RDW 14.3 % (11.5-15.2) 05/18/18 11:30 Plt Count 154 10^3/uL (150-400) 05/18/18 11:30 MPV 11.4 fL (8.7-11.7) 05/18/18 11:30 Neut % (Auto) 72.5 % (39.3-74.2) 05/18/18 11:30 Lymph % (Auto) 17.3 % (15.0-45.0) 05/18/18 11:30 Jay % (Auto) 9.0 % (4.5-13.0) 05/18/18 11:30 Eos % (Auto) 0.2 % (0.6-7.6) L 05/18/18 11:30 Baso % (Auto) 0.5 % (0.3-1.7) 05/18/18 11:30 Nucleat RBC Rel Count 0.0 % (0.0-0.2) 05/18/18 11:30 Absolute Neuts (auto) 8.03 10^3/uL (1.70-6.50) H 05/18/18 11:30 Absolute Lymphs (auto) 1.91 10^3/uL (1.00-3.00) 05/18/18 11:30 Absolute Monos (auto) 0.99 10^3/uL (0.30-0.80) H 05/18/18 11:30 Absolute Eos (auto) 0.02 10^3/uL (0.03-0.40) L 05/18/18 11:30 Absolute Basos (auto) 0.06 10^3/uL (0.02-0.10) 05/18/18 11:30 Absolute Nucleated RBC 0.00 10^3/uL (0-0.01) 05/18/18 11:30 Immature Gran % 0.5 % (0.0-1.1) 05/18/18 11:30 Immature Gran # 0.05 10^3/uL (0.00-0.10) 05/18/18 11:30 Sodium 140 mEq/L (135-145) 05/18/18 11:30 Potassium 3.6 mEq/L (3.5-5.2) 05/18/18 11:30 Chloride 97 mEq/L (97-110) 05/18/18 11:30 Carbon Dioxide 21 mEq/l (22-31) L 05/18/18 11:30 Anion Gap 22 mEq/L (6-14) H 05/18/18 11:30 BUN 22 mg/dL (7-23) 05/18/18 11:30 Creatinine 1.0 mg/dL (0.7-1.3) 05/18/18 11:30 Estimated GFR > 60 05/18/18 11:30 Glucose 159 mg/dL (70-100) H 05/18/18 11:30 Calcium 9.9 mg/dL (8.5-10.4) 05/18/18 11:30 Nasal Influenza A PCR NEGATIVE FOR FLU A (NEGATIVE) 05/18/18 19:51 Nasal Influenza B PCR NEGATIVE FOR FLU B (NEGATIVE) 05/18/18 19:51 Ethyl Alcohol < 10 mg/dL (0-10) 05/18/18 11:30 RSV (PCR) NEGATIVE FOR RSV (NEGATIVE) 05/18/18 19:51 Visualized and Interpreted Chest x-ray results: Yes Chest X-Ray results: no infiltrate, other (flattened diaphragms c/w copd) Assessment & Plan Assessment: Hypoxemia - pt was 98% on room air on arrival, now requiring 5 LPM after receiving sedating meds, ?aspiration. He also has h/o COPD. Also note elevated hgb increases risk for thrombosis. CXR pers reviewed/interp, hyperexpanded lung solano and possibly mild interstitial edema, no obvious infiltrate. -duonebs, prn albuterol nebs, s/p IV solumedrol in ED, will change to po pred tomorrow -send bnp, consider echo -send PCT, he received Unasyn in ED for possible aspiration pna, will defer further atbx for now, f/u PCT and repeat CXR in am -send d dimer, if elevated obtain CTA Seizure - had initial seizure 2016 with negative brain MRI. Has previously been treated with Depakote as can also help his psychiatric dx. -resume depakote 1g bid -seizure precautions -neurology consult in am Schizoaffective disorder - risperdal hs Polycythemia - hgb >20, may be 2/2 COPD vs volume contraction. He did receive 1L NS in ED -recheck H&H now -send Jak2 and Epo level if persist elevated -if repeat h&h still this elevated, would order therapeutic phlebotomy AGMA - likely 2/2 seizure -follow Full code Dispo - admit to inpt, anticipate >48 hrs hospitalization for ongoing management of hypoxemia
[2018-05-18] MEDS: risperiDONE 1 MG TAB PO SCH (22:23)
[2018-05-18] MEDS: DIVALPROEX NA 500 MG TAB PO SCH (22:24)
[2018-05-19] MEDS ORDERED: IOPAMIDOL (ISOVUE 370) 100 ML BTL IV ONE (00:10)
[2018-05-19] MEDS: AMPICILLIN/SULBACTAM 3 GM in NS 100 ML IV SCH ×4 (01:58→20:07)
[2018-05-19] MEDS: IPRATROPIUM/ALBUTEROL 3 ML DEYVIAL IH SCH ×4 (05:17→21:51)
[2018-05-19 05:46] LABS: PLATELET COUNT 108 10^3/uL (150-400)
[2018-05-19] MEDS: DIVALPROEX NA 500 MG TAB PO SCH ×2 (08:09→19:59)
[2018-05-19] MEDS: predniSONE 20 MG TAB PO SCH (08:09)
[2018-05-19] MEDS: ENOXAPARIN 40 MG/0.4 ML SYR SC SCH (08:09)
--- NOTE | 2018-05-19 10:44 | HOSPPROG ---
Hospitalist Progress Note Assessment/Plan: 62 yo M w seizure disorder here w seizure, subsequent AHRF AHRF: wheezes on exam at risk for aspiration given seizure repeat cxr w possible RLL infiltrate continue unasyn/azith ween o2 as tolerated copd: significant by imaging continue pred and scheduled duonebs seizure: continue depakote appreciate neurology input case d/w dr davalos proph: lmwh dispo: inpt Subjective: cough productive of yellow sputum. on 10 L this AM. admit chest imaging shows emphysema, ggo. AM cxr fullness on R lower lung field. (interp by me) Objective: Vital Signs Temp Pulse Resp BP Pulse Ox 36.7 C 95 18 118/72 92 05/19/18 07:28 05/19/18 07:28 05/19/18 07:28 05/19/18 07:28 05/19/18 07:28 Microbiology 05/18/18 23:14 Respiratory Panel (PCR) - Final Nasal, Sinus - Swab No Organism Detected By Pcr Laboratory Results 05/19/18 04:15 05/19/18 04:15 05/18/18 05/19/18 05/20/18 05:59 05:59 05:59 Intake Total 1000 Output Total 500 Balance 500 - Physical Exam Constitutional: no apparent distress, appears nourished Eyes: PERRL, anicteric sclera Ears, Nose, Mouth, Throat: moist mucous membranes, hearing normal Cardiovascular: regular rate and rhythym, no murmur, rub, or gallop Respiratory: other (diffuse expiratory wheezes, no crackles) Gastrointestinal: normoactive bowel sounds, soft, non-tender abdomen Genitourinary: no bladder fullness, No titus in urethra Skin: warm, normal color Musculoskeletal: full muscle strength Neurologic: AAOx3 ICD10 Worksheet Patient Problems: Problems Problem Status Onset Seizure Acute Cannabis dependence Acute Cocaine dependence Acute Pneumonia Acute
--- NOTE | 2018-05-19 11:22 | GCON ---
[f rep st] CONSULTATION NEUROLOGY CONSULT CHIEF COMPLAINT: Seizure. HISTORY OF PRESENT ILLNESS: The patient is a very pleasant 62-year-old gentleman who has a history of schizophrenia and lives in the homeless intermediate here in [place]. Apparently, he began having a cryptogenic seizure disorder in 2016. He denies any epilepsy risk factors. He had a brain MRI in June of 2016 , which showed no epileptogenic abnormalities. He had some microvascular changes. He was seen by Dr. Ray at that time. He was put on Depakote at that time and asked to follow up with Neurology, which he did not do. The patient denies any recreational drug use or alcohol use. He denies previous alcoholism. The patient states he was on Depakote "years ago" but does not remember the dose for bipolar or schizophrenia; he does not recall which. He states he has not been on Depakote for "years." The patient was ready to discharge back to the homeless intermediate yesterday but was found to be hypoxic in the setting of his known diagnosis of COPD and was admitted for pulmonary/respiratory evaluation. He has had no further seizures. He was restarted on Depakote. REVIEW OF SYSTEMS: Ten-point review of systems done, only pertinent to the HPI. For past medical history, family history, social history, home medications, allergies, please see Dr. Alana Canela's H and P. PHYSICAL EXAM: VITAL SIGNS: Blood pressure is 118/72, temperature is 36.7, heart rate is in the 80s. GENERAL: He is very pleasant, no acute distress. He has no aphasia. Cranial nerve exam 2 through 7 and 12 are normal. Motor exam is normal. No focal weakness. Sensory exam is normal. Coordination is normal in upper and lower extremities. IMPRESSION/PLAN: 1. Psychosocial challenges. 2. Psychiatric disease. 3. Cryptogenic seizure disorder. Overall, the patient's clinical history is not entirely clear whether he has provoked seizures versus unprovoked seizures. He denies epilepsy risk factors. He also denies provocative factors for seizures. He has been on Depakote in the past for his mood disorder. His electrolytes were not abnormal to the point to indicate provoked seizure. Going forward, I think it is reasonable to restart Depakote for his mood disorder and seizure prophylaxis. However, as he states, he has not been on it for "years." We will initiate him at the starting dose of 10-15 mg/kg per day. Based on his weight of 81 kg, I have reduced his dose to 500 mg b.i.d., which will be in the starting dose range. It can be up-titrated as an outpatient based on his clinical response and drug levels. Going forward, he will be on 90 days of driving restriction and seizure precautions. He is agreeable. He does not drive. We discussed potential risks, benefits and alternatives of Depakote including the risk of hepatic toxicity. He will have followup with his PCP and other specialists as indicated. He will follow up with me in 2-4 weeks after discharge for further evaluation, EEG, and adjustment of antiseizure medication as needed. No further recommendations now. We will continue to follow as needed. Please do not hesitate to call if there are any questions or changes in neurologic status with this patient. We appreciate the consultation. Seventy total minutes floor time; over 50% in direct counseling and coordination of care. /[id number]/MODL MTDD
[2018-05-19] MEDS: AZITHROMYCIN 250 MG TAB PO SCH (12:22)
--- NOTE | 2018-05-19 14:27 | ASMTCMCOM ---
CM Note CM Note Notes: 05/19/2018 Case Management Note Pt admitted for COPD, hypoxia and recent seizure. Met w/pt to discuss d/c needs. Pt spends his nights at a reserved bed at the [facility]. Phone call to Nestor at [phone]. Pt belongings in locker 70. Nestor requested that day of d/c case management call [facility] to alert of discharge. Pt to bring discharge paperwork to [facility]. [facility] hold bed and belongings in locker. Pt unable to recall name of primary clinician through [facility]. Alerted [facility] special education case manager at [facility] of admission. Therapy evals pending. Pt is Medicare covered, SNF rehab will be a possibility for him. Case Management d/c poc: to be determined. Case Management to follow. Date Signed: 05/19/2018 02:27 PM Electronically Signed By:Josefina Rizvi RN
--- NOTE | 2018-05-19 14:48 | PDMN ---
Medical Necessity Medical necessity: Pt meets IP criteria per MD & ROGELIO PG-RF Respiratory Failure; est los >2 mn for eval/tx of hypoxemia following seizure w/concern for aspiration pneumonia; admit for further further workup/monitoring, respiratory supportive care & Neuro consult; hx seizures, homelessness, COPD; per H&P & order 05/18/18
[2018-05-19] MEDS: risperiDONE 1 MG TAB PO SCH (19:55)
[2018-05-20] MEDS: AMPICILLIN/SULBACTAM 3 GM in NS 100 ML IV SCH ×4 (01:48→20:30)
[2018-05-20] MEDS: IPRATROPIUM/ALBUTEROL 3 ML DEYVIAL IH SCH ×4 (06:25→22:02)
[2018-05-20] MEDS: ENOXAPARIN 40 MG/0.4 ML SYR SC SCH (08:35)
[2018-05-20] MEDS: AZITHROMYCIN 250 MG TAB PO SCH (08:36)
[2018-05-20] MEDS: predniSONE 20 MG TAB PO SCH (08:36)
[2018-05-20] MEDS: DIVALPROEX NA 500 MG TAB PO SCH ×2 (08:36→20:30)
--- NOTE | 2018-05-20 10:32 | HOSPPROG ---
Hospitalist Progress Note Assessment/Plan: 62 yo M w schizoaffective disorder, seizure disorder here w seizure, subsequent AHRF. # AHRF: Incr work of breathing when not on O2, hypoxic. Improving, down to 4L - wean O2 to keep >88% # Probably aspiration pneumonia: RLL infiltrate on repeat CXR - continue unasyn # Acute exacerbation of COPD: Still wheezing - continue scheduled duonebs, prednisone, azithromycin # Seizure: - nuerology consulted, continue depakote per their recs # Schizoaffective disorder: On depakote as above # Homelessness: Has bed at [facility] # Polycythemia: Hgb>20 on admit, now down slightly. Suspect due to chronic hypoxia - Consider JAK2 mutation testing as outpt # Steroid-induced hyperglycemia - Add SSI # Chronic thrombocytopenia: Stable VTE ppx: LMWH Code: full Dispo: Remain inpatient Subjective: No complaints, breathing better. Took off O2 to go to bathroom, now very short of breath. Still wheezy Objective: Vital Signs Temp Pulse Resp BP Pulse Ox 36.5 C 85 20 131/84 H 95 05/20/18 07:40 05/20/18 07:40 05/20/18 07:40 05/20/18 07:40 05/20/18 07:40 Microbiology 05/18/18 23:14 Respiratory Panel (PCR) - Final Nasal, Sinus - Swab No Organism Detected By Pcr Laboratory Results 05/19/18 04:15 05/19/18 04:15 05/19/18 05/20/18 05/21/18 05:59 05:59 05:59 Intake Total 1000 1062 Output Total 500 Balance 500 1062 - Physical Exam Constitutional: no apparent distress, unkempt, other (winnie facies) Eyes: PERRL, anicteric sclera Ears, Nose, Mouth, Throat: moist mucous membranes Cardiovascular: regular rate and rhythym, No edema Respiratory: reduced air movement, expiratory wheeze, respiratory distress Gastrointestinal: normoactive bowel sounds, soft, non-tender abdomen, no palpable masses Genitourinary: no bladder fullness, no bladder tenderness, no renal bruits Skin: no rashes or abrasions, no fluctuance, no induration Musculoskeletal: full muscle strength Neurologic: AAOx3 Psychiatric: interacting appropriately, flat affect ICD10 Worksheet Patient Problems: Problems Problem Status Onset Seizure Acute Cannabis dependence Acute Cocaine dependence Acute Pneumonia Acute
[2018-05-20] MEDS ORDERED: D50W 25 GM/50 ML SYR IVP PRN (10:37)
[2018-05-20] MEDS: INSULIN LISPRO 100 UNIT/ML SC SCH ×2 (12:24→17:25)
[2018-05-20] MEDS: risperiDONE 1 MG TAB PO SCH (20:31)
[2018-05-20] MEDS ORDERED: INSULIN REGULAR HUMAN 100 UNIT/ML UNIT IVP ONE (21:45)
[2018-05-21] MEDS: AMPICILLIN/SULBACTAM 3 GM in NS 100 ML IV SCH ×4 (01:55→20:57)
[2018-05-21] MEDS: IPRATROPIUM/ALBUTEROL 3 ML DEYVIAL IH SCH ×4 (06:18→21:25)
[2018-05-21] MEDS: ENOXAPARIN 40 MG/0.4 ML SYR SC SCH (08:28)
[2018-05-21] MEDS: INSULIN LISPRO 100 UNIT/ML SC SCH ×3 (08:28→17:47)
[2018-05-21] MEDS: predniSONE 20 MG TAB PO SCH (08:29)
[2018-05-21] MEDS: DIVALPROEX NA 500 MG TAB PO SCH ×2 (08:29→20:57)
[2018-05-21] MEDS: AZITHROMYCIN 250 MG TAB PO SCH (08:29)
--- NOTE | 2018-05-21 14:08 | HOSPPROG ---
Hospitalist Progress Note Assessment/Plan: 62 yo M w schizoaffective disorder, seizure disorder here w seizure, subsequent AHRF. # AHRF: Incr work of breathing when not on O2, hypoxic. Improving, down to 3L - wean O2 to keep >88% # Probable aspiration pneumonia: RLL infiltrate on repeat CXR - continue unasyn # Acute exacerbation of COPD: Wheezing better - continue scheduled duonebs, prednisone, azithromycin # Steroid-induced hyperglycemia: BG significantly elevated - Check A1c - Increase SSI, add glargine 5 units this evening # Seizure: - nuerology consulted, continue depakote per their recs # Schizoaffective disorder: On depakote as above # Homelessness: Has bed at [facility] # Polycythemia: Hgb>20 on admit, now down slightly. Suspect due to chronic hypoxia - Consider JAK2 mutation testing as outpt # Chronic thrombocytopenia: Stable VTE ppx: LMWH Code: full Dispo: Remain inpatient. Hopefully dc in 1-2 days Subjective: Feeling better. Mild cough with yellowish sputum. No fevers. Objective: Vital Signs Temp Pulse Resp BP Pulse Ox 36.8 C 87 20 131/83 H 90 L 05/21/18 11:32 05/21/18 11:32 05/21/18 11:32 05/21/18 11:32 05/21/18 11:32 Laboratory Results 05/21/18 04:23 05/21/18 04:23 05/20/18 05/21/18 05/22/18 05:59 05:59 05:59 Intake Total 1062 1500 Output Total 150 Balance 1062 1350 - Physical Exam Constitutional: no apparent distress, unkempt Eyes: PERRL, anicteric sclera, EOMI Ears, Nose, Mouth, Throat: moist mucous membranes, hearing normal, ears appear normal, no oral mucosal ulcers Cardiovascular: regular rate and rhythym, no murmur, rub, or gallop, No edema Respiratory: no respiratory distress, expiratory wheeze Gastrointestinal: normoactive bowel sounds, soft, non-tender abdomen, no palpable masses Genitourinary: no bladder fullness, no bladder tenderness, no renal bruits Skin: other (winnie face) Musculoskeletal: full muscle strength Neurologic: AAOx3 Psychiatric: interacting appropriately, flat affect ICD10 Worksheet Patient Problems: Problems Problem Status Onset Seizure Acute Cannabis dependence Acute Cocaine dependence Acute Pneumonia Acute
[2018-05-21] MEDS: risperiDONE 1 MG TAB PO SCH (20:57)
[2018-05-21] MEDS ORDERED: INSULIN GLARGINE 100 UNITS/ML UNIT SC SCH (21:00)
[2018-05-21] MEDS ORDERED: INSULIN LISPRO 100 UNIT/ML SC ONE (22:18)
[2018-05-22] MEDS: AMPICILLIN/SULBACTAM 3 GM in NS 100 ML IV SCH ×4 (01:16→20:24)
[2018-05-22] MEDS: IPRATROPIUM/ALBUTEROL 3 ML DEYVIAL IH SCH ×4 (05:16→21:28)
[2018-05-22] MEDS ORDERED: INSULIN GLARGINE 100 UNITS/ML UNIT SC SCH (08:34)
[2018-05-22] MEDS: ENOXAPARIN 40 MG/0.4 ML SYR SC SCH (08:39)
[2018-05-22] MEDS: AZITHROMYCIN 250 MG TAB PO SCH (08:39)
[2018-05-22] MEDS: DIVALPROEX NA 500 MG TAB PO SCH ×2 (08:39→20:22)
[2018-05-22] MEDS: predniSONE 20 MG TAB PO SCH (08:39)
[2018-05-22] MEDS: INSULIN LISPRO 100 UNIT/ML SC SCH ×6 (09:14→17:41)
--- NOTE | 2018-05-22 10:24 | HOSPPROG ---
Hospitalist Progress Note Assessment/Plan: 62 yo M w schizoaffective disorder, seizure disorder here w seizure, subsequent AHRF. # Acute hypoxia: Low 90s on 3L - wean O2 to keep >88% # Acute exacerbation of COPD: Still with significantly prolonged expiratory phase and wheezing - continue scheduled duonebs, prednisone, azithromycin # Aspiration pneumonia: RLL infiltrate on repeat CXR - continue unasyn day 4/ # Diabetes: New diagnosis. A1c 10.1%. BG uncontrolled - increase glargine 5 to 15 units qhs - increase SSI to very high dose # Seizure: - nuerology consulted, continue depakote per their recs # Schizoaffective disorder: On depakote as above # Homelessness: Has bed at [facility] # Polycythemia: Hgb>20 on admit, now down slightly. Suspect due to chronic hypoxia - Consider JAK2 mutation testing as outpt # Chronic thrombocytopenia: Stable VTE ppx: LMWH Code: full Dispo: Remain inpatient, unsafe to dc as still requiring significant oxygen and blood glucoses uncontrolled. Discussed with case management, will be challenging to get supplemental O2 to homeless [facility]. Subjective: Still requiring 2-3L. Wondering when he can leave. No fevers Objective: Vital Signs Temp Pulse Resp BP Pulse Ox 36.8 C 88 20 138/83 H 91 L 05/22/18 07:52 05/22/18 07:52 05/22/18 07:52 05/22/18 07:52 05/22/18 07:52 Laboratory Results 05/21/18 04:23 05/21/18 21:27 05/21/18 05/22/18 05/23/18 05:59 05:59 05:59 Intake Total 1500 620 Output Total 150 Balance 1350 620 - Physical Exam Constitutional: no apparent distress, unkempt Eyes: PERRL, anicteric sclera Ears, Nose, Mouth, Throat: moist mucous membranes Cardiovascular: regular rate and rhythym, no murmur, rub, or gallop, No edema Respiratory: no respiratory distress, reduced air movement, expiratory wheeze, other (prolonged expiratory phase) Gastrointestinal: normoactive bowel sounds Genitourinary: no bladder fullness, no bladder tenderness, no renal bruits Skin: no rashes or abrasions, no fluctuance, no induration Musculoskeletal: full muscle strength, no muscle tenderness, normal joint ROM Neurologic: AAOx3 Psychiatric: interacting appropriately ICD10 Worksheet Patient Problems: Problems Problem Status Onset Seizure Acute Cannabis dependence Acute Cocaine dependence Acute Pneumonia Acute
--- NOTE | 2018-05-22 10:31 | ASMTCMCOM ---
CM Note CM Note Notes: Pts case discussed w/ Dr. Grewal. Pt is not medically stable to d/c at this time. [facility]/c tomorrow. OT and SPL has cleared pt to d/c without any needs. No other needs at this time. CM available for changes. Plan: Independent Date Signed: 05/22/2018 10:31 AM Electronically Signed By:KENYATTA Frye
[2018-05-22] MEDS ORDERED: NS 1,000 ML IV SCH (19:00)
[2018-05-22] MEDS: risperiDONE 1 MG TAB PO SCH (20:22)
[2018-05-23] MEDS: AMPICILLIN/SULBACTAM 3 GM in NS 100 ML IV SCH (01:38)
[2018-05-23] MEDS: IPRATROPIUM/ALBUTEROL 3 ML DEYVIAL IH SCH (05:48)
[2018-05-23 07:39] VITALS: BP 149/84
--- NOTE | 2018-05-23 08:06 | HOSPPROG ---
Hospitalist Progress Note Assessment/Plan: 62 yo M w schizoaffective disorder, seizure disorder here w seizure, subsequent AHRF. # Acute hypoxia: Low 90s on 3L - wean O2 to keep >88% # Acute exacerbation of COPD: Still with significantly prolonged expiratory phase and wheezing - continue scheduled duonebs, prednisone, azithromycin # Aspiration pneumonia: RLL infiltrate on repeat CXR - continue unasyn day 4/ # Diabetes: New diagnosis. A1c 10.1%. BG uncontrolled - increase glargine 5 to 15 units qhs - increase SSI to very high dose # Seizure: - nuerology consulted, continue depakote per their recs # Schizoaffective disorder: On depakote as above # Homelessness: Has bed at [facility] # Polycythemia: Hgb>20 on admit, now down slightly. Suspect due to chronic hypoxia - Consider JAK2 mutation testing as outpt # Chronic thrombocytopenia: Stable VTE ppx: LMWH Code: full Dispo: Remain inpatient, unsafe to dc as still requiring significant oxygen and blood glucoses uncontrolled. Discussed with case management, will be challenging to get supplemental O2 to homeless long term. Objective: Vital Signs Temp Pulse Resp BP Pulse Ox 36.4 C 81 16 149/84 H 91 L 05/23/18 07:35 05/23/18 07:35 05/23/18 07:35 05/23/18 07:35 05/23/18 07:35 Laboratory Results 05/21/18 04:23 05/21/18 21:27 05/22/18 05/23/18 05/24/18 05:59 05:59 05:59 Intake Total 620 360 Output Total 400 Balance 620 -40 ICD10 Worksheet Patient Problems: Problems Problem Status Onset Seizure Acute Cannabis dependence Acute Cocaine dependence Acute Pneumonia Acute
--- NOTE | 2018-05-23 08:56 | PDDCSUM ---
Discharge Summary Discharge Summary: Date of Admission: 05/18/2018 Date of AMA Discharge: 05/23/2018 Consultants: neurology Studies: CTA chest, CXR Discharge Diagnoses: 1. Seizure 2. Acute hypoxemic respiratory failure 3. Aspiration pneumonia 4. Acute exacerbation of COPD 5. Diabetes (new diagnosis) with severe hyperglycemia 6. Schizoaffective disorder 7. Homeless, staying at [facility] 8. Polycythemia 9. Chronic thrombocytopenia Brief Hospital Course: 62 yo M w schizoaffective disorder, seizure disorder who is non-adherent to his medications presented with seizure. This resolved prior to being brought to the ED. He had no recurrence of seizures while hospitalized. Neurology was consulted and placed him on depakote 500mg BID (he was previously on this). He was going to be discharged however he was noted to be hypoxic. CTA of his chest was negative for PE but imaging did demonstrate a possible right middle lobe infiltrate. He had obstructive lung physiology and was requiring up to 7L of supplemental oxygen. He was treated for aspiration pneumonia and COPD exacerbation with antibiotics, bronchodilators, and steroids. He improved and was weaned to 2-3L. He was also noted to be severely hyperglycemic. An A1c was 10.1%, establishing a new diagnosis of diabetes. His insulin regimen was being uptitrated but his blood glucoses were still very uncontrolled (>500 at times). Unfortunately, the patient decided to leave against medical advice. He refused to accept prescriptions for his COPD, pneumonia, or diabetes. I personally discussed risks of leaving including respiratory failure, sepsis/shock, dehydration, DKA/HHS, coma, and . He is of decision making capacity and is compensated from a psychiatric stand point. He is also refusing supplemental oxygen. He is agreeable to taking depakote but wants to wean off of this. Medications: Please refer to EMR for complete list. As above, he was resistant to receiving any prescriptions except for depakote. I sent a script for depakote 500mg BID #60 to his pharmacy. Physical Exam: Vitals reviewed, afebrile. Patient refused physical exam on day of discharge.
[2018-05-23] MEDS ORDERED: INSULIN GLARGINE 100 UNITS/ML UNIT SC SCH (09:00)
== END 2018-05-23 09:25 | disposition left against medical advice (07) | DRG 177 ==
LOC: EDUNIT# → F3E 20:56
PROVIDERS: ADMIT Hospitalist; ATTEND Internal Medicine
DX: J69.0 Pneumonitis due to inhalation of food and vomit (principal); J44.0 Chronic obstructive pulmonary disease with (acute) lower respiratory infection; J44.1 Chronic obstructive pulmonary disease with (acute) exacerbation; J96.01 Acute respiratory failure with hypoxia; F17.210 Nicotine dependence, cigarettes, uncomplicated; D75.1 Secondary polycythemia; E11.65 Type 2 diabetes mellitus with hyperglycemia; Z79.2 Long term (current) use of antibiotics; G40.909 Epilepsy, unspecified, not intractable, without status epilepticus; D69.59 Other secondary thrombocytopenia; Z59.0 Homelessness
CPT/HCPCS: 80305; 82947-QW; 92523-GN; 92610-GN; 96365; 97165-GO; G0480; J0295; J1630; J1650; J1815; J2060; J2930; J7512; J7613; Q9967

== ENCOUNTER 2018-05-25 12:16 | Emergency (ER) | payer OTHER, MEDICAID ==
--- NOTE | 2018-05-25 12:59 | EDPHY ---
H & P Time Seen by Provider: 05/25/18 12:58 HPI/ROS: CHIEF COMPLAINT: Seizure HISTORY OF PRESENT ILLNESS: Patient brought in by EMS after having sustained a seizure. He does not have any medical complaints. He denies headache or shortness of breath or cough or chest pain. He admits to not taking his medications. REVIEW OF SYSTEMS: Eye: no change in vision ENT: No sore throat or recent ENT illness Cardiac: no chest pain Pulmonary: Not short of breath Abdomen: No abdominal pain vomiting or diarrhea Musculoskeletal: no back pain or neck pain Skin: No laceration Neuro: no headache Constitutional: no fever : no urinary symptoms A comprehensive 10 point review of systems is otherwise negative aside from elements mentioned in the history of present illness. PAST MEDICAL HISTORY: Discharge summary dated 05/23/2018 personally reviewed includes seizure disorder, aspiration pneumonia and COPD, diabetes, schizoaffective disorder, chronic polycythemia and thrombocytopenia. Social history: Patient is currently homeless General Appearance: Alert and, cooperative. Eyes: No scleral icterus. ENT, Mouth: Normal mucous membranes. Respiratory: Decreased breath sounds bilaterally. He is speaking in full sentences. Cardiovascular: Regular rate and rhythm. Tachycardic without murmur. Gastrointestinal: Abdomen is soft and non tender. Neurological: Alert, face symmetric, normal motor and sensory in extremities. Not acutely tremulous. Skin: Warm and dry, no rashes. Musculoskeletal: No peripheral edema. Psychiatric: Patient does have rambling speech but is able to focus when asked to specific question. He does not appear confused. He is not suicidal or homicidal and is not hallucinating. Emergency Department course/MDM: After extensive discussion with the patient he insists on leaving against medical advice. Although he has abnormal vital signs, he knows the year and the season and where he is and how he feels and says he does not want to be in the hospital. He says he is aware he left against medical advice 2 days ago but thinks he will be fine. He just really does not want to stay in the hospital. I do not feel like at this point even with his schizoaffective disorder he is meeting criteria for gravely disabled. He is not suicidal or homicidal. 1342: Patient had a seizure in his room. He was placed back in the bed but has bleeding from his nose. At this time he is somnolent and nonverbal and on supplemental oxygen. 2 mg IV Ativan ordered, noncontrast head CT, chest x-ray, CBC and chemistry, EKG. At this point in his ED stay he clearly does not have capacity to make decisions regarding his care. 1419: Negative head CT per Dr. Ashley. 1443: Still somnolent and obtunded. Still on supplemental oxygen face mask. Chest x-ray performed shows lung findings not significantly changed from previous last week. Will admit to hospitalist service for treatment of seizure disorder and hypoxemia. Will continue treatment for his aspiration pneumonia that was diagnosed last week. 1700: Patient is now awake again, and alert and has capacity to make decisions regarding his care and wants to leave again. He has clearly recovered from his seizure and his Ativan; has a normal sensorium and is calm and rational. I had a long discussion with him about staying in the hospital but he says he wants to leave. He says he will "feel better being outside" saying that he wants to "breathe the fresh air." He states that he is aware that he is high risk, and he could have a recurrent seizure disability or or cardiac arrest but says he is willing to take that risk and does not want to stay in the hospital. He refused additional medications except he was willing to take a prescription for Augmentin and for his Depakote. The Depakote dosing was taken from Dr. Grewal's discharge summary from 2 days ago He says he will go to [facility] tomorrow to get these filled. Was encouraged to return if he changes his mind regarding inpatient evaluation. Smoking Status: Light smoker Constitutional: Initial Vital Signs Temperature (C) 36.9 C 05/25/18 12:31 Heart Rate 120 H 05/25/18 12:31 Respiratory Rate 18 05/25/18 12:31 Blood Pressure 160/102 H 05/25/18 12:31 O2 Sat (%) 82 L 05/25/18 12:31 O2 Delivery Mode Non-Rebreather Mask O2 (L/minute) 15 Allergies/Adverse Reactions: chlorpromazine HCl [From Thorazine] Allergy (Verified 05/25/18 12:33) codeine [Codeine] Allergy (Verified 05/25/18 12:33) Home Medications: Medication Instructions Recorded Amoxicillin/Clavulanate Pot 875 mg PO BID #20 tab 05/25/18 [Augmentin 875 mg tab] Divalproex [Depakote] 500 mg PO BID #14 tab 05/25/18 Medical Decision Making - Diagnostics EKG Interpretation: 12-lead EKG interpreted by me; official reading is in computer system. My interpretation is sinus tachycardia with left axis deviation Imaging Results: Imaging Impressions Chest X-Ray 05/25/18 13:41 Impression: Shallow inspiration with suspected basilar atelectasis and possible low-grade congestive heart failure. Head CT 05/25/18 13:41 Impression: 1. No acute intracranial findings. 2. Diffuse cerebral atrophy with periventricular and subcortical low attenuation consistent with chronic microvascular ischemic gliosis. Findings discussed with JERAMY LEON 05/25/2018 at 14:16. Imaging: Discussed imaging studies w/ parquetry layer Radiologist Consult/Admit Bed Type: [place] [id number] Critical Care Time: Critical care time spent by me, Dr. Leon, exclusively with the care of this patient was 30 minutes, exclusive of PA or RECREATION COUNSELOR time and exclusive of separate procedures. The organ system at risk was neurologic and pulmonary and I ordered IV anti seizure medication, IV antibiotics, supplemental oxygen, multiple evaluation to stabilize the patient and prevent worsening of the patient's condition. - Data Points Laboratory Results: Laboratory Results 05/25/18 12:25 05/25/18 12:25 05/25/18 05/25/18 05/25/18 14:00 12:25 12:25 WBC 9.15 10^3/uL 10^3/uL (3.80-9.50) RBC 7.07 10^6/uL H 10^6/uL (4.40-6.38) Hgb 22.4 g/dL H* g/dL (13.7-17.5) POC Hgb 23.1 gm/dL H* gm/dL (13.7-17.5) Hct 65.9 % H* % (40.0-51.0) POC Hct 68 % H* % (40-51) MCV 93.2 fL fL (81.5-99.8) MCH 31.7 pg pg (27.9-34.1) MCHC 34.0 g/dL g/dL (32.4-36.7) RDW 14.0 % % (11.5-15.2) Plt Count 131 10^3/uL L 10^3/uL (150-400) MPV 13.0 fL H fL (8.7-11.7) Neut % (Auto) 62.0 % % (39.3-74.2) Lymph % (Auto) 26.3 % % (15.0-45.0) Stephens % (Auto) 10.5 % % (4.5-13.0) Eos % (Auto) 0.4 % L % (0.6-7.6) Baso % (Auto) 0.5 % % (0.3-1.7) Nucleat RBC Rel Count 0.0 % % (0.0-0.2) Absolute Neuts (auto) 5.66 10^3/uL 10^3/uL (1.70-6.50) Absolute Lymphs (auto) 2.41 10^3/uL 10^3/uL (1.00-3.00) Absolute Monos (auto) 0.96 10^3/uL H 10^3/uL (0.30-0.80) Absolute Eos (auto) 0.04 10^3/uL 10^3/uL (0.03-0.40) Absolute Basos (auto) 0.05 10^3/uL 10^3/uL (0.02-0.10) Absolute Nucleated RBC 0.00 10^3/uL 10^3/uL (0-0.01) Immature Gran % 0.3 % % (0.0-1.1) Immature Gran # 0.03 10^3/uL 10^3/uL (0.00-0.10) POC Sodium 138 mEq/L mEq/L (135-145) Sodium 137 mEq/L mEq/L (135-145) POC Potassium 4.5 mEq/L mEq/L (3.3-5.0) Potassium 5.4 mEq/L H mEq/L (3.5-5.2) POC Chloride 95 mEq/L L mEq/L (97-110) Chloride 90 mEq/L L mEq/L (97-110) Carbon Dioxide 21 mEq/l L mEq/l (22-31) POC Total CO2 25 mEq/L mEq/L (22-31) Anion Gap 26 mEq/L H mEq/L (6-14) POC BUN 26 mg/dL H mg/dL (7-23) BUN 22 mg/dL mg/dL (7-23) Creatinine 0.8 mg/dL mg/dL (0.7-1.3) POC Creatinine 0.7 mg/dL mg/dL (0.7-1.3) Estimated GFR > 60 Glucose 381 mg/dL H mg/dL (70-100) POC Glucose 397 mg/dL H mg/dL (70-100) Calcium 10.3 mg/dL mg/dL (8.5-10.4) Specimen Hemolysis 225 Valproic Acid < 10.0 mcg/mL L mcg/mL (50.0-150.0) Medications Given: Discontinued Medications Ampicillin Sodium/Sulbactam (Sodium 3 gm/ Sodium Chloride) 100 mls @ 200 mls/ hr IV EDNOW ONE PRN Reason: Protocol Stop: 05/25/18 15:13 Last Admin: 05/25/18 15:09 Dose: 100 mls Sodium Chloride (Ns) 1,000 mls @ 0 mls/hr IV ONCE ONE; Wide Open PRN Reason: Protocol Stop: 05/25/18 13:46 Last Admin: 05/25/18 13:45 Dose: 1,000 mls Sodium Chloride (Ns) 1,000 mls @ 0 mls/hr IV EDNOW ONE; Wide Open PRN Reason: Protocol Stop: 05/25/18 15:07 Last Admin: 05/25/18 15:20 Dose: 1,000 mls Lorazepam (Ativan Injection) 2 mg IVP EDNOW ONE Stop: 05/25/18 13:38 Last Admin: 05/25/18 13:42 Dose: 2 mg Point of Care Test Results: Chemistry 05/25/18 14:00 POC Sodium 138 mEq/L mEq/L (135-145) POC Potassium 4.5 mEq/L mEq/L (3.3-5.0) POC Chloride 95 mEq/L L mEq/L (97-110) POC Total CO2 25 mEq/L mEq/L (22-31) POC BUN 26 mg/dL H mg/dL (7-23) POC Creatinine 0.7 mg/dL mg/dL (0.7-1.3) POC Glucose 397 mg/dL H mg/dL (70-100) ISTAT H&H 05/25/18 14:00 POC Hgb 23.1 gm/dL H* gm/dL (13.7-17.5) POC Hct 68 % H* % (40-51) Departure - Departure Disposition: Against Medical Advice Clinical Impression: Seizure disorder Aspiration pneumonia Qualifiers: Aspiration pneumonia type: unspecified Laterality: unspecified laterality Lung location: unspecified part of lung Qualified Code(s): J69.0 - Pneumonitis due to inhalation of food and vomit Condition: Fair
[2018-05-25] MEDS ORDERED: LORazepam 2 MG/ML INJ IVP ONE (13:37)
[2018-05-25] MEDS ORDERED: NS 1,000 ML IV ONE ×2 (13:45→15:06)
--- NOTE | 2018-05-25 13:59 | ASMTCMCOM ---
CM Note CM Note Notes: Patient history reviewed including recent IP visit and discharge AMA on 05/23. Patient presents to ED today and again states he would like to leave AMA. This CM met with patient prior to D/C. Patient is able to tell me that he sees Dr. Booker at [facility] and PCP at [facility] (same location) He states that he does not usually have 'appointments' but instead goes to the clinic on Tuesdays and Fridays. He is oriented to date, day, time, person, and current location. He confirms with me that he does not want to stay at the hospital and he is aware that he will be discharged against medical advice. He will follow up at [facility] tomorrow "between 9 and 9:30 AM". He will stay at [facility] as he usually does. I have LM with Yecenia at [facility] to inform her of patient's ED visit and recent discharge on 05/23. Date Signed: 05/25/2018 01:58 PM Electronically Signed By:Abi Mcallister RN
--- NOTE | 2018-05-25 14:41 | ASMTCMCOM ---
CM Note CM Note Notes: Patient had a witnessed seizure as he was up and attempting to leave AMA. Patient is currently sedated after receiving Ativan. Plan is for admission to ICU This CM did receive call back from Yecenia at [facility]. Yecenia confirms that patient's last appointment with Dr. Booker was in December, and patient does not currently have a follow up appointment scheduled. She also confims that patient "refuses to take medication for seizures or otherwise". Patient's PCP at [facility] is Reena Landon NP CM to follow patient and notify [facility] upon patient's discharge. Oneida FELICIANO ([facility]) will be covering Yecenia at this number through end of next week (05/26-06/02) Date Signed: 05/25/2018 02:40 PM Electronically Signed By:Abi Mcallister RN
[2018-05-25] MEDS ORDERED: AMPICILLIN/SULBACTAM 3 GM in NS 100 ML IV ONE (14:44)
--- NOTE | 2018-05-25 14:46 | CPEKG ---
Test Reason : OPEN Blood Pressure : / mmHG Vent. Rate : 109 BPM Atrial Rate : 109 BPM P-R Int : 145 ms QRS Dur : 092 ms QT Int : 359 ms P-R-T Axes : 074 -80 059 degrees QTc Int : 484 ms Sinus tachycardia LAD, consider left anterior fascicular block Borderline prolonged QT interval Confirmed by Jeramy Leon ([id number]) on 05/25/2018 2:46:09 PM Referred By: JERAMY LEON Confirmed By:Jeramy Leon
[2018-05-25 15:01] LABS: PLATELET COUNT 131 10^3/uL (150-400)
[2018-05-25] MEDS ORDERED: ACETAMINOPHEN 325 MG TAB PO PRN (16:26)
--- NOTE | 2018-05-25 16:29 | ASMTLACE ---
[facility] Acuity / Level of Answers: Yes Care: Did the patient have an inpatient admission? Comorbidities - select Answers: Chronic pulmonary disease all that apply Diabetes (uncontrolled or controlled) # of Emergency department Answers: 1-2 visits in the last 6 months Social determinants Answers: History of substance abuse (ETOH, street drugs, prescription drugs, etc.) Homelessness (street, snf) Mental health diagnosis (anxiety, depression, pers onality disorders, etc.) Score: 16 Date Signed: 05/25/2018 04:29 PM Electronically Signed By:Abi Mcallister RN
--- NOTE | 2018-05-25 16:29 | PDGENHP ---
History and Physical - Chief Complaint seizure - History of Present Illness 62yo M with schizoaffective disorder, prior seizures, COPD who is brought in after having a seizure. He actually just left the hospital against medical advice 2 days ago. I was caring for him at that time. He refused to take any medications or wear supplemental oxygen at discharge. He reportedly had a witnessed seizure and was brought in to the ED by EMS. He was slightly confused. He was attempting to leave AMA from the ED when he had another seizure , fell, and hit his head. He received 2mg IV ativan. A CT of his head did not show any acute abnormality. He has been unresponsive since the seizure. He is wearing a non-rebreather when I see him and is not responding to sternal rub. He is being admitted for further management. Case discussed with ED physician Filippo Palencia. Of note, he was being treated for aspiration pneumonia, COPD exacerbation, acute hypoxia, and hyperglycemia/diabetes when he left AMA. History Information - Allergies/Home Medication List Allergies/Adverse Reactions: chlorpromazine HCl [From Thorazine] Allergy (Verified 05/25/18 12:33) codeine [Codeine] Allergy (Verified 05/25/18 12:33) I have personally reviewed and updated: family history, medical history, social history, surgical history - Past Medical History Additional medical history: schizoaffective disorder, seizure disorder, diabetes , COPD, polycythemia, chronic thrombocytopenia - Surgical History Reports: no pertinent surgical hx - Family History Positive for: non-pertinent - Social History Smoking Status: Light smoker Additional social history: Lives at [facility] Review of Systems Review of Systems: Unable to obtain due to mental status. Physical Exam Physical Exam: Temp Pulse Resp BP Pulse Ox 36.9 C 120 H 18 160/102 H 94 05/25/18 12:31 05/25/18 12:31 05/25/18 12:31 05/25/18 12:31 05/25/18 12:33 Constitutional: other (unresponsive) Eyes: PERRL, anicteric sclera Cardiovascular: regular rate and rhythym, no murmur, rub, or gallop, No edema Respiratory: no rales or rhonchi, reduced air movement, respiratory distress, No expiratory wheeze Gastrointestinal: normoactive bowel sounds, soft, non-tender abdomen, no palpable masses Genitourinary: no bladder fullness, no bladder tenderness Skin: other (winnie face and erythematous hands) Neurologic: other (not alert or oriented, not responding to painful stimuli or sternal rub) Psychiatric: encephalopathic Lab Data & Imaging Review 05/25/18 12:25 05/25/18 12:25 WBC 9.15 10^3/uL (3.80-9.50) 05/25/18 12:25 RBC 7.07 10^6/uL (4.40-6.38) H 05/25/18 12:25 Hgb 22.4 g/dL (13.7-17.5) H* 05/25/18 12:25 POC Hgb 23.1 gm/dL (13.7-17.5) H* 05/25/18 14:00 Hct 65.9 % (40.0-51.0) H* 05/25/18 12:25 POC Hct 68 % (40-51) H* 05/25/18 14:00 MCV 93.2 fL (81.5-99.8) 05/25/18 12:25 MCH 31.7 pg (27.9-34.1) 05/25/18 12:25 MCHC 34.0 g/dL (32.4-36.7) 05/25/18 12:25 RDW 14.0 % (11.5-15.2) 05/25/18 12:25 Plt Count 131 10^3/uL (150-400) L 05/25/18 12:25 MPV 13.0 fL (8.7-11.7) H 05/25/18 12:25 Neut % (Auto) 62.0 % (39.3-74.2) 05/25/18 12:25 Lymph % (Auto) 26.3 % (15.0-45.0) 05/25/18 12:25 [place] % (Auto) 10.5 % (4.5-13.0) 05/25/18 12:25 Eos % (Auto) 0.4 % (0.6-7.6) L 05/25/18 12:25 Baso % (Auto) 0.5 % (0.3-1.7) 05/25/18 12:25 Nucleat RBC Rel Count 0.0 % (0.0-0.2) 05/25/18 12:25 Absolute Neuts (auto) 5.66 10^3/uL (1.70-6.50) 05/25/18 12:25 Absolute Lymphs (auto) 2.41 10^3/uL (1.00-3.00) 05/25/18 12:25 Absolute Monos (auto) 0.96 10^3/uL (0.30-0.80) H 05/25/18 12:25 Absolute Eos (auto) 0.04 10^3/uL (0.03-0.40) 05/25/18 12:25 Absolute Basos (auto) 0.05 10^3/uL (0.02-0.10) 05/25/18 12:25 Absolute Nucleated RBC 0.00 10^3/uL (0-0.01) 05/25/18 12:25 Immature Gran % 0.3 % (0.0-1.1) 05/25/18 12:25 Immature Gran # 0.03 10^3/uL (0.00-0.10) 05/25/18 12:25 POC Sodium 138 mEq/L (135-145) 05/25/18 14:00 Sodium 137 mEq/L (135-145) 05/25/18 12:25 POC Potassium 4.5 mEq/L (3.3-5.0) 05/25/18 14:00 Potassium 5.4 mEq/L (3.5-5.2) H 05/25/18 12:25 POC Chloride 95 mEq/L (97-110) L 05/25/18 14:00 Chloride 90 mEq/L (97-110) L 05/25/18 12:25 Carbon Dioxide 21 mEq/l (22-31) L 05/25/18 12:25 POC Total CO2 25 mEq/L (22-31) 05/25/18 14:00 Anion Gap 26 mEq/L (6-14) H 05/25/18 12:25 POC BUN 26 mg/dL (7-23) H 05/25/18 14:00 BUN 22 mg/dL (7-23) 05/25/18 12:25 Creatinine 0.8 mg/dL (0.7-1.3) 05/25/18 12:25 POC Creatinine 0.7 mg/dL (0.7-1.3) 05/25/18 14:00 Estimated GFR > 60 05/25/18 12:25 Glucose 381 mg/dL (70-100) H 05/25/18 12:25 POC Glucose 397 mg/dL (70-100) H 05/25/18 14:00 Calcium 10.3 mg/dL (8.5-10.4) 05/25/18 12:25 Specimen Hemolysis 225 05/25/18 12:25 Valproic Acid < 10.0 mcg/mL (50.0-150.0) L 05/25/18 12:25 Interpretation: CXR: poor inspiratory effort with resultant basilar atelectasis and crowded perihilar structures and vasculature Assessment & Plan Assessment: 62yo M with schizoaffective disorder, prior seizures, COPD, recent AMA discharge who is brought in after having a seizure. Plan: #Seizure: Due to anti-epileptic non-adherence. Evaluated by neurology during recent admission and restarted on depakote with no further seizures. - Depakote 500mg BID - Consult neurology in AM #Acute metabolic encephalopathy: Post-ictal and due to benzodiazepines. He is quite obtunded. - Avoid centrally acting mediations as able #Acute hypoxemic respiratory failure: Currently protecting airway but at risk for decompensation. - Stat VBG ordered. If elevated CO2 and not waking up, may need mechanical ventilation #Recent aspiration pneumonia - Continue IV unasyn, consider repeating CXR once more awake #Polycythemia: H/H severely elevated. Suspect combination of hemoconcentrated/ dehydration and chronic hypoxia. - Repeat H/H this evening, if remains elevated after fluids will need to consider phlebotomy #Hyperglycemia with diabetes: A1c >10 recently. - Glargine 10u qhs, SSI, regular BG checks #Anion gap metabolic acidosis: Likely lactic acidosis due to seizure. Delta/ delta indicates has concomitant metabolic alkalosis as well. - IVF #Hyperkalemia: Mild. Renal function ok. Suspect due to acidemia. #Schizoaffective disorder: Restarting depakote as above. VTE ppx: LMWH Code: full Dispo: Admit as inpatient to step down unit
[2018-05-25] MEDS ORDERED: D50W 25 GM/50 ML SYR IVP PRN (17:01)
[2018-05-25 17:42] VITALS: BP 142/90
[2018-05-25] MEDS ORDERED: INSULIN LISPRO 100 UNIT/ML SC SCH (18:00)
[2018-05-25] MEDS ORDERED: LORazepam 2 MG/ML INJ ONE (20:12)
[2018-05-25] MEDS ORDERED: DIVALPROEX NA 500 MG TAB PO SCH (21:00)
[2018-05-25] MEDS ORDERED: INSULIN GLARGINE 100 UNITS/ML UNIT SC SCH (21:00)
[2018-05-26] MEDS ORDERED: ENOXAPARIN 40 MG/0.4 ML SYR SC SCH (09:00)
== END 2018-05-25 17:25 | disposition left against medical advice (07) ==
LOC: EDUNIT# → UNDOADMIN 14:48
DX: G40.909 Epilepsy, unspecified, not intractable, without status epilepticus (principal); R09.02 Hypoxemia; J69.0 Pneumonitis due to inhalation of food and vomit; E86.9 Volume depletion, unspecified; E11.9 Type 2 diabetes mellitus without complications; Z79.4 Long term (current) use of insulin; Z59.0 Homelessness
CPT/HCPCS: 82435-PO; 82565-PO; 82947-PO; 84132-PO; 84295-PO; 84520-PO; 85014-ER; 96365; J0295; J2060

== ENCOUNTER 2018-05-26 10:29 | Emergency (ER) | payer OTHER, MEDICAID ==
--- NOTE | 2018-05-26 11:36 | EDPHY ---
H & P Time Seen by Provider: 05/26/18 11:22 HPI/ROS: CHIEF COMPLAINT: seizure HISTORY OF PRESENT ILLNESS: Patient was brought in with a witnessed 30 sec seizure. When I see him he is up sitting in the bed and wants to leave. Of note I saw him in the emergency department yesterday for the same presentation he left against medical advice twice. He denies cough or shortness of breath or headache or neck pain. He also did not take his Augmentin or his Depakote. Denies being suicidal or homicidal or hallucinating. REVIEW OF SYSTEMS: Eye: no change in vision ENT: no sore throat Cardiac: no chest pain or syncope Pulmonary: no cough or SOB Abdomen: no vomiting, diarrhea, abdominal pain Musculoskeletal: no back pain Skin: no rash Neuro: no headache Constitutional: no fever : no urinary symptoms A comprehensive 10 point review of systems is otherwise negative aside from elements mentioned in the history of present illness. PAST MEDICAL HISTORY: Seizure disorder, schizoaffective, recent aspiration pneumonia, diabetes, polycythemia and thrombocytopenia Social history: Homeless General Appearance: Alert and conversant, cooperative. Eyes: No scleral icterus. ENT, Mouth: Normal mucous membranes. Respiratory: Normal respiratory effort, breath sounds equal, lungs are clear to auscultation. Cardiovascular: Regular rate and rhythm. Gastrointestinal: Abdomen is soft and non tender. Neurological: Alert, face symmetric, normal motor and sensory in extremities. Not tremulous. Speech fluent speech. Skin: Warm and dry, no rashes. Musculoskeletal: No peripheral edema. Psychiatric: Patient has a little bit of rambling speech but is easily directable. He has the logical response to direct questions. Emergency Department course/MDM: Adamant about wanting to leave AMA. States he will go get his prescriptions filled today. States he understands risks of leaving against medical advice including recurrent seizure, worsening pneumonia, disability and . He states that he is willing to take those risks but just does not want to be in the hospital. I do not think he meets criteria for mental health hold. He does appear to have capacity to make decisions regarding his care. He does not appear to be postictal or head injury at this time. He is given warnings encouraged to return if he changes his mind about inpatient evaluation. Smoking Status: Light smoker Constitutional: Initial Vital Signs Temperature (C) 36.8 C 05/26/18 10:30 Heart Rate 114 H 05/26/18 10:30 Respiratory Rate 20 05/26/18 10:30 Blood Pressure 149/106 H 05/26/18 10:30 O2 Sat (%) 90 L 05/26/18 10:30 O2 Delivery Mode Room Air O2 (L/minute) 4 Allergies/Adverse Reactions: chlorpromazine HCl [From Thorazine] Allergy (Verified 05/25/18 12:33) codeine [Codeine] Allergy (Verified 05/25/18 12:33) Home Medications: Medication Instructions Recorded Amoxicillin/Clavulanate Pot 875 mg PO BID #20 tab 05/25/18 [Augmentin 875 mg tab] Divalproex [Depakote] 500 mg PO BID #14 tab 05/25/18 Medical Decision Making Differential Diagnosis: Differential diagnosis considered for a seizure including but not limited to electrolyte abnormality, alcohol withdrawal, medication noncompliance, head injury, and breakthrough seizure. Departure - Departure Disposition: Against Medical Advice Clinical Impression: Seizure disorder Condition: Good Instructions: Epilepsy (ED) Additional Instructions: Please return if you change your mind regarding inpatient hospital evaluation and treatment. Referrals: [facility],. [Clinic] - As per Instructions
[2018-05-26 11:47] VITALS: BP 140/87
== END 2018-05-26 11:47 | disposition left against medical advice (07) ==
LOC: EDUNIT#
DX: G40.909 Epilepsy, unspecified, not intractable, without status epilepticus (principal); E11.9 Type 2 diabetes mellitus without complications; F20.89 Other schizophrenia; Z59.0 Homelessness; Z79.4 Long term (current) use of insulin

== ENCOUNTER 2018-05-26 21:12 | Inpatient (IN) | payer OTHER, MEDICAID ==
[2018-05-26] MEDS ORDERED: OLANZapine 10 MG/2 ML VIAL ONE (21:22)
[2018-05-26] MEDS ORDERED: OLANZapine 10 MG/2 ML VIAL IM ONE (21:23)
[2018-05-26] MEDS ORDERED: MIDAZOLAM 2 MG/2 ML VIAL IVP ONE (22:13)
[2018-05-26 22:17] LABS: PLATELET COUNT 151 10^3/uL (150-400)
[2018-05-26] MEDS ORDERED: NS 1,000 ML IV ONE ×2 (22:19→23:28)
--- NOTE | 2018-05-26 22:22 | EDPHY ---
H & P Stated Complaint: from homless skilled nursing, manic behavior, agitated, cough, [id number] for EMS Time Seen by Provider: 05/26/18 21:40 HPI/ROS: HPI The patient presents with wade, agitation, bizarre behavior from the homeless skilled nursing where he stays. He is brought in by EMS and was noted to have a blood glucose of 370. The patient has been the ED earlier today as well as yesterday for seizures. He is not taking any medication for this though he is supposed to be on Depakote. He was recently admitted to the hospital for several days for aspiration pneumonia with underlying COPD weight onset diabetes. He has not taken any medication at all. He left each time from the [facility] [place] REVIEW OF SYSTEMS 10 systems were reviewed and negative with the exception of the elements mentioned in the history of present illness. PMHx: Schizoaffective disorder, COPD, new onset type 2 diabetes not on medication, seizure disorder with multiple seizures recently, supposed to be on Depakote, recent aspiration pneumonia supposed to be on Augmentin Soc Hx: Homeless, cigarette smoker, marijuana use, history of cocaine use PHYSICAL General Appearance: Alert, disheveled, poor hygiene Eyes: Pupils equal and round no pallor or injection ENT, Mouth: Mucous membranes moist Respiratory: There are no retractions, lungs are clear to auscultation Cardiovascular: Tachycardic rate and regular rhythm Gastrointestinal: Abdomen is soft and non-tender, no masses, bowel sounds normal Neurological: A&O, moves all extremities Skin: Warm and dry, no rashes Musculoskeletal: Neck is supple non tender Extremities: symmetrical, full range of motion Psychiatric: Patient is oriented X 2, he has pressured speech, is rambling, is agitated and somewhat aggressive Source: Patient, EMS, Old records Exam Limitations: Clinical condition - Personal History Current Tetanus/Diphtheria Vaccine: Unsure Current Tetanus Diphtheria and Acellular Pertussis (TDAP): Unsure - Medical/Surgical History Hx Asthma: No Hx Chronic Respiratory Disease: No Hx Diabetes: No Hx Cardiac Disease: No Hx Renal Disease: No Hx Cirrhosis: No Hx Alcoholism: No Hx HIV/AIDS: No Hx Splenectomy or Spleen Trauma: No Other PMH: Seizures, Schizoaffective disorder (Hx psychosis), Bipolar (Hx Manic episodes) - Social History Smoking Status: Light smoker Constitutional: Initial Vital Signs Temperature (C) 37.3 C 03/01/19 21:17 Heart Rate 106 H 05/26/18 21:17 Respiratory Rate 20 05/26/18 21:17 Blood Pressure 128/85 H 05/26/18 21:17 O2 Sat (%) 90 L 05/26/18 21:17 O2 Delivery Mode Nasal Cannula O2 (L/minute) 4 Allergies/Adverse Reactions: chlorpromazine HCl [From Thorazine] Allergy (Verified 05/25/18 12:33) codeine [Codeine] Allergy (Verified 05/25/18 12:33) Home Medications: Medication Instructions Recorded Amoxicillin/Clavulanate Pot 875 mg PO BID #20 tab 05/25/18 [Augmentin 875 mg tab] Divalproex [Depakote] 500 mg PO BID #14 tab 05/25/18 Medical Decision Making - Diagnostics Imaging Results: Imaging Impressions Chest X-Ray 05/26/18 22:10 Impression: Peribronchial thickening and bibasilar subsegmental atelectasis/ mild infiltrates with underlying COPD. Differential Diagnosis: 62-year-old homeless man with history of polysubstance abuse, schizoaffective disorder, uncontrolled seizures, recent admission for aspiration pneumonia with new diagnosis of diabetes presents brought in by ambulance from the skilled nursing with wade and strange behavior. Here, he is tachycardic, hypoxic at 86 requiring oxygen to keep his sats above 90, he is disheveled and seems unable to care for himself. Because of his pressured speech, disorientation, reported wade, I have placed him on an M1 hold. We will start a medical workup. Chest x-ray is unremarkable, basic labs are normal. Patient required both antipsychotic and benzos for sedation due to his wade. He likely is suffering from exacerbation of his COPD. He is requiring 4 L of oxygen to maintain his saturations greater than 90 at this time. His blood glucose is initially in the 300s, he does not have any anion gap. He is given IV fluids for this with improvement in his blood sugars to the 200s. I do not think he is suitable for mental health placement given his hypoxia. Because of this, I have consulted with Dr. Sullivan of the hospitalist service and we will admit the patient. We will maintain the M1 hold. - Data Points Laboratory Results: Laboratory Results 05/26/18 21:30 05/26/18 21:30 05/27/18 05/26/18 05/26/18 02:07 21:30 21:30 WBC RBC Hgb Hct MCV MCH MCHC RDW Plt Count MPV Neut % (Auto) Lymph % (Auto) [place] % (Auto) Eos % (Auto) Baso % (Auto) Nucleat RBC Rel Count Absolute Neuts (auto) Absolute Lymphs (auto) Absolute Monos (auto) Absolute Eos (auto) Absolute Basos (auto) Absolute Nucleated RBC Immature Gran % Immature Gran # Sodium 134 mEq/L L mEq/L (135-145) Potassium 4.5 mEq/L mEq/L (3.5-5.2) Chloride 96 mEq/L L mEq/L (97-110) Carbon Dioxide 27 mEq/l mEq/l (22-31) Anion Gap 11 mEq/L mEq/L (6-14) BUN 31 mg/dL H mg/dL (7-23) Creatinine 0.8 mg/dL mg/dL (0.7-1.3) Estimated GFR > 60 Glucose 358 mg/dL H mg/dL (70-100) POC Glucose 213 mg/dL H mg/dL (70-100) Calcium 9.5 mg/dL mg/dL (8.5-10.4) Total Bilirubin 1.4 mg/dL mg/dL (0.1-1.4) AST 50 IU/L IU/L (17-59) ALT 73 IU/L H IU/L (21-72) Alkaline Phosphatase 102 IU/L IU/L (38-126) Total Protein 7.0 g/dL g/dL (6.3-8.2) Albumin 4.0 g/dL g/dL (3.5-5.0) Valproic Acid < 10.0 mcg/mL L mcg/mL (50.0-150.0) Ethyl Alcohol < 10 mg/dL mg/dL (0-10) 05/26/18 21:30 WBC 10.12 10^3/uL H 10^3/uL (3.80-9.50) RBC 6.25 10^6/uL 10^6/uL (4.40-6.38) Hgb 19.9 g/dL H g/dL (13.7-17.5) Hct 58.9 % H % (40.0-51.0) MCV 94.2 fL fL (81.5-99.8) MCH 31.8 pg pg (27.9-34.1) MCHC 33.8 g/dL g/dL (32.4-36.7) RDW 13.2 % % (11.5-15.2) Plt Count 151 10^3/uL 10^3/uL (150-400) MPV 12.2 fL H fL (8.7-11.7) Neut % (Auto) 65.8 % % (39.3-74.2) Lymph % (Auto) 23.7 % % (15.0-45.0) [place] % (Auto) 9.3 % % (4.5-13.0) Eos % (Auto) 0.4 % L % (0.6-7.6) Baso % (Auto) 0.5 % % (0.3-1.7) Nucleat RBC Rel Count 0.0 % % (0.0-0.2) Absolute Neuts (auto) 6.66 10^3/uL H 10^3/uL (1.70-6.50) Absolute Lymphs (auto) 2.40 10^3/uL 10^3/uL (1.00-3.00) Absolute Monos (auto) 0.94 10^3/uL H 10^3/uL (0.30-0.80) Absolute Eos (auto) 0.04 10^3/uL 10^3/uL (0.03-0.40) Absolute Basos (auto) 0.05 10^3/uL 10^3/uL (0.02-0.10) Absolute Nucleated RBC 0.00 10^3/uL 10^3/uL (0-0.01) Immature Gran % 0.3 % % (0.0-1.1) Immature Gran # 0.03 10^3/uL 10^3/uL (0.00-0.10) Sodium Potassium Chloride Carbon Dioxide Anion Gap BUN Creatinine Estimated GFR Glucose POC Glucose Calcium Total Bilirubin AST ALT Alkaline Phosphatase Total Protein Albumin Valproic Acid Ethyl Alcohol Medications Given: Discontinued Medications Albuterol/Ipratropium (Duoneb) 3 ml IH EDNOW ONE Stop: 05/27/18 01:57 Last Admin: 05/27/18 02:00 Dose: 3 ml Sodium Chloride (Ns) 1,000 mls @ 0 mls/hr IV ONCE ONE PRN Reason: Wide Open Stop: 05/26/18 22:20 Last Admin: 05/26/18 22:19 Dose: 1,000 mls Sodium Chloride (Ns) 1,000 mls @ 0 mls/hr IV ONCE ONE PRN Reason: Wide Open Stop: 05/26/18 23:29 Last Admin: 05/27/18 01:04 Dose: 1,000 mls Methylprednisolone Sodium Succinate (Solu-Medrol) 125 mg IVP EDNOW ONE Stop: 05/27/18 03:25 Last Admin: 05/27/18 03:28 Dose: 125 mg Midazolam HCl (Versed) 2 mg IVP EDNOW ONE Stop: 05/26/18 22:14 Last Admin: 05/26/18 22:16 Dose: 2 mg Olanzapine (Zyprexa Injection) 10 mg IM EDNOW ONE Stop: 05/26/18 21:24 Last Admin: 05/26/18 21:26 Dose: 10 mg Point of Care Test Results: Chemistry 05/27/18 02:07 POC Glucose 213 mg/dL H mg/dL (70-100) Departure - Departure Disposition: [facility] Clinical Impression: Hypoxia, Hyperglycemia due to type 2 diabetes mellitus, Altered mental status Condition: Fair
[2018-05-27] MEDS ORDERED: IPRATROPIUM/ALBUTEROL 3 ML DEYVIAL IH ONE (01:56)
[2018-05-27] MEDS ORDERED: methylPREDNISolone SOD SUCC 125 MG/2 ML VIAL IVP ONE (03:24)
[2018-05-27] MEDS ORDERED: ONDANSETRON DISINTEGRATING 4 MG TAB PO PRN (03:40)
[2018-05-27] MEDS ORDERED: ACETAMINOPHEN 325 MG TAB PO PRN (03:40)
[2018-05-27] MEDS ORDERED: ONDANSETRON 4 MG/2 ML VIAL IVP PRN (03:40)
[2018-05-27] MEDS ORDERED: ALBUTEROL 3 ML DEYVIAL IH PRN (03:40)
[2018-05-27] MEDS ORDERED: D50W 25 GM/50 ML VIAL IVP PRN (03:44)
[2018-05-27] MEDS ORDERED: INSULIN LISPRO 100 UNIT/ML SC ONE (03:45)
--- NOTE | 2018-05-27 04:02 | PDGENHP ---
History and Physical - Chief Complaint Agitated delirium - History of Present Illness 62 yo M w/ hx of COPD, DM, and schizoaffective d/o presents with agitation and wade. The patient was sent to the ED from the homeless [facility] via EMS for agitated delirium. EMS noted his BG to be 370 en route. Diabetes was diagnosed during last admission (A1c 10.1%) but he left AMA without outpatient therapy. In addition, the patient was seen in our ED earlier today for a seizure. He has been prescribed Depakote but is non-compliant with all medications. He is also hypoxic requiring ~4 L/min O2 to maintain O2 sats. He is not in respiratory distress. He is being admitted for medical optimization prior to psychiatric evaluation while on an M1 hold. During my evaluation the patient is sedated and unable to provide additional history. Case discussed with ED physician Dr. Ariza; records reviewed and summarized above. History Information - Allergies/Home Medication List Allergies/Adverse Reactions: chlorpromazine HCl [From Thorazine] Allergy (Verified 05/25/18 12:33) codeine [Codeine] Allergy (Verified 05/25/18 12:33) I have personally reviewed and updated: family history, medical history - Past Medical History COPD, diabetes type 2, seizures Additional medical history: schizoaffective disorder, seizure disorder, diabetes , COPD, polycythemia, chronic thrombocytopenia - Surgical History Additional surgical history: Patient unable to provide due to sedation - Family History Additional family history: Patient unable to provide due to sedation - Social History Smoking Status: Light smoker Additional social history: Lives at [facility] Review of Systems Review of Systems: Patient unable to provide due to sedation ROS: 10pt was reviewed & negative except for what was stated in HPI & below Physical Exam Physical Exam: Temp Pulse Resp BP Pulse Ox 37.3 C 85 24 H 97/66 L 92 05/26/18 21:17 05/27/18 03:25 05/27/18 03:25 05/27/18 03:09 05/27/18 03:25 Constitutional: chronically ill appearing, unkempt Eyes: PERRL, anicteric sclera Ears, Nose, Mouth, Throat: ears appear normal, poor dentition Cardiovascular: regular rate and rhythym, no murmur, rub, or gallop Respiratory: no respiratory distress, expiratory wheeze, rhonchi Gastrointestinal: normoactive bowel sounds, soft, non-tender abdomen Skin: warm, normal color Musculoskeletal: no muscle tenderness, no joint effusions Neurologic: sensation intact bilaterally, CN II-XII Intact Psychiatric: agitated (Now sedated s/p medication), poor insight, poor judgement Lab Data & Imaging Review 05/26/18 21:30 05/26/18 21:30 WBC 10.12 10^3/uL (3.80-9.50) H 05/26/18 21:30 RBC 6.25 10^6/uL (4.40-6.38) 05/26/18 21:30 Hgb 19.9 g/dL (13.7-17.5) H 05/26/18 21:30 Hct 58.9 % (40.0-51.0) H 05/26/18 21:30 MCV 94.2 fL (81.5-99.8) 05/26/18 21:30 MCH 31.8 pg (27.9-34.1) 05/26/18 21:30 MCHC 33.8 g/dL (32.4-36.7) 05/26/18 21:30 RDW 13.2 % (11.5-15.2) 05/26/18 21:30 Plt Count 151 10^3/uL (150-400) 05/26/18 21:30 MPV 12.2 fL (8.7-11.7) H 05/26/18 21:30 Neut % (Auto) 65.8 % (39.3-74.2) 05/26/18 21:30 Lymph % (Auto) 23.7 % (15.0-45.0) 05/26/18 21:30 [place] % (Auto) 9.3 % (4.5-13.0) 05/26/18 21:30 Eos % (Auto) 0.4 % (0.6-7.6) L 05/26/18 21:30 Baso % (Auto) 0.5 % (0.3-1.7) 05/26/18 21:30 Nucleat RBC Rel Count 0.0 % (0.0-0.2) 05/26/18 21:30 Absolute Neuts (auto) 6.66 10^3/uL (1.70-6.50) H 05/26/18 21:30 Absolute Lymphs (auto) 2.40 10^3/uL (1.00-3.00) 05/26/18 21:30 Absolute Monos (auto) 0.94 10^3/uL (0.30-0.80) H 05/26/18 21:30 Absolute Eos (auto) 0.04 10^3/uL (0.03-0.40) 05/26/18 21:30 Absolute Basos (auto) 0.05 10^3/uL (0.02-0.10) 05/26/18 21:30 Absolute Nucleated RBC 0.00 10^3/uL (0-0.01) 05/26/18 21:30 Immature Gran % 0.3 % (0.0-1.1) 05/26/18 21:30 Immature Gran # 0.03 10^3/uL (0.00-0.10) 05/26/18 21:30 Sodium 134 mEq/L (135-145) L 05/26/18 21:30 Potassium 4.5 mEq/L (3.5-5.2) 05/26/18 21:30 Chloride 96 mEq/L (97-110) L 05/26/18 21:30 Carbon Dioxide 27 mEq/l (22-31) 05/26/18 21:30 Anion Gap 11 mEq/L (6-14) 05/26/18 21:30 BUN 31 mg/dL (7-23) H 05/26/18 21:30 Creatinine 0.8 mg/dL (0.7-1.3) 05/26/18 21:30 Estimated GFR > 60 05/26/18 21:30 Glucose 358 mg/dL (70-100) H 05/26/18 21:30 POC Glucose 213 mg/dL (70-100) H 05/27/18 02:07 Calcium 9.5 mg/dL (8.5-10.4) 05/26/18 21:30 Total Bilirubin 1.4 mg/dL (0.1-1.4) 05/26/18 21:30 AST 50 IU/L (17-59) 05/26/18 21:30 ALT 73 IU/L (21-72) H 05/26/18 21:30 Alkaline Phosphatase 102 IU/L (38-126) 05/26/18 21:30 Total Protein 7.0 g/dL (6.3-8.2) 05/26/18 21:30 Albumin 4.0 g/dL (3.5-5.0) 05/26/18 21:30 Ethyl Alcohol < 10 mg/dL (0-10) 05/26/18 21:30 Imaging Review: Imaging Impressions Chest X-Ray 05/26/18 22:10 Impression: Peribronchial thickening and bibasilar subsegmental atelectasis/ mild infiltrates with underlying COPD. Assessment & Plan Assessment: 62 yo M w/ hx of COPD, DM, and schizoaffective d/o presents with agitation and wade. Plan: 1. Schizoaffective d/o w/ acute decompensation - Sent to ED from [facility] due to agitated delirium. He required sedation upon arrival and remains sedated during my evaluation. He is non-compliant with all medications. - M1 hold - TLC consult placed in computer 2. COPD - Patient likely has severe COPD, is non-compliant with therapy, and continues to use tobacco. He is in no distress and I do not believe he is in an acute exacerbation. - Duonebs QID gayatri, albuterol PRN - Will avoid steroids due to poorly controlled DM 3. Hypoxia - Due to untreated COPD and continued tobacco use. He is currently requiring 4 L/min O2 to maintain O2 sats. - COPD management as above - Incentive spirometry ordered 4. IDDM - Hyperglycemia on arrival due to medication non-compliance. DM was diagnosed during recent admission. - Continue DM regimen from recent admission (insulin glargine 15 u BID + lispro SS high regimen) - Titrate insulin as indicated - Monitor BG ACHS; D50 IV PRN for hypoglycemia 5. Polycythemia - Due to chronic hypoxia and continued tobacco use. 6. Seizure d/o - Restart Depakote 500 mg BID, which should also help with mood stabilization. Diet - Regular Code - Full Ppx - LMWH Dispo - Admit under observation status, M1 hold
[2018-05-27] MEDS ORDERED: IPRATROPIUM/ALBUTEROL 3 ML DEYVIAL IH SCH (06:00)
[2018-05-27 07:21] VITALS: BP 98/58
[2018-05-27] MEDS ORDERED: INSULIN LISPRO 100 UNIT/ML SC SCH (08:00)
[2018-05-27] MEDS ORDERED: ENOXAPARIN 40 MG/0.4 ML SYR SC SCH (09:00)
[2018-05-27] MEDS ORDERED: INSULIN GLARGINE 100 UNITS/ML UNIT SC SCH ×2 (09:00→21:00)
[2018-05-27] MEDS ORDERED: DIVALPROEX NA 500 MG TAB PO SCH (09:00)
[2018-05-27] MEDS ORDERED: LORazepam 2 MG/ML INJ IVP PRN (09:34)
[2018-05-27] MEDS ORDERED: OLANZapine DISINTEGR 10 MG TAB ONE (09:37)
--- NOTE | 2018-05-27 10:08 | PDMN ---
Medical Necessity Medical necessity: Change to IP, as of 05/27/18, per MD & MCG M-590; est los >2 mn for eval/tx of agitated delirium, hypoxia & hyperglycemia; pt on M1 hold; admit for further monitoring, safety, Psych eval, respiratory supportive care & med management; hx schizoaffective disorder, homelessness, COPD, diabetes, seizures, non-compliant w/meds, polysubstance abuse
[2018-05-27] MEDS ORDERED: DIAZEPAM 5 MG TAB ONE (10:20)
--- NOTE | 2018-05-27 13:39 | GDS ---
[f rep st] DISCHARGE SUMMARY DISPOSITION: This patient left AMA. HISTORY OF PRESENT ILLNESS: This is a 62-year-old man who was brought in by EMS. It sounds as thoug h they were called for an elevated blood glucose and manic behavior. In the ED, he was diagnosed wit h a COPD exacerbation and placed on an M1 hold for his manic behavior. He was given Zyprexa intramus cular and then was quite calm after that. The following morning, he awoke also agitated. He is quit e adamant that he is refusing all medical care. Because he was on an M1 hold, he was die trimmer by DORITA Iraheta who vacated his M1 hold. He is quite anxious to leave the hospital AMA. He is hypoxic. I have ex plained that he may if he leaves the hospital against medical advice without further treatment; h owever, he is ready to go. He, thus, departs AMA in guarded condition. He does have [facility] to make this decision. BILLING: I spent more than 30 minutes on the day of discharge coordinating care. /[id number]/MODL
--- NOTE | 2018-05-27 14:03 | ASMTLACE ---
VINCENZO Acuity / Level of Answers: Yes Care: Did the patient have an inpatient admission? Comorbidities - select Answers: Chronic pulmonary disease all that apply Diabetes (uncontrolled or controlled) Other Notes: seizure d/o # of Emergency department Answers: 3-4 visits in the last 6 months Social determinants Answers: Homelessness (street, fpc) Lack of community resources and/or lack of social support (no pcp, lives alone, transportation, brenda d) Score: 17 Date Signed: 05/27/2018 02:02 PM Electronically Signed By:LUIS CARLOS Boyce
--- NOTE | 2018-05-27 14:50 | ASMTTLCEVL ---
TLC Evaluation - Basic Information Evaluation Start Date and 05/27/2018 11:30 AM Time Hospital Status Answers: M1 Hold 72-hr M1 Hold Start Date 05/26/2018 10:12 PM and Time Patient statement Notes: "I aint gonna talk shit to you. Narrative Notes: Pt is a 62 yo, single, male, brought to [facility] Ed on 05/26/18 by EMS where he was presenting with wade, agitation, bizarre behavior at the [facility] [place] [facility]. P was noted to have a blood glucose of 370. Pt had been to the ED earlier today and yesterday for seizures. Pt is not taking any medication for this though he is supposed to be on Depakote Pt was recently admitted to the hospital for several days for aspiration pneumonia with underlying COPD weight onset diabetes. Pt left each time AMA. Pt was placed on an M1 due to his pressured speech, disorientation and reported wade while in the ED. Pt was administered Zyprexa injection 10mg and versed 2mg while in the ED due to his wade. Pt was then admitted to ICU for hypoxia. Pt was medically cleared for evaluation on 05/27/18. While in ICU, pt has been escalating and aggressive towards staff requiring security to be present by his room. Pt threw his urinal at a nurse and was verbally aggressive towards staff. Pt is open with [facility] and per [facility] staff, pt has come to the [facility] and he typically asks for assistance in housing vouchers. [facility] staff stated that pt has stated he does not want medication and does not want therapy. Pt last saw Dr. Booker in December. At that time, pt had 10 months of recovery from drugs and was not taking any anti-psychotic medications at that time. [facility] staff stated that he has been offered housing assistance but they are unsure if pt has followed up. When this underwriter solicitation director met with pt, he was verbally abusive, uncooperative and using profanity stating, Youre so fucking crazy. I cant stand you. Shut up and have a conscience dont shine your ass on me. Security was present in the room during the evaluation. Pt was uncooperative throughout the evaluation. At times, pt appeared to be disorganized and paranoid. At one point pt ripped off his band aid and told this underwriter solicitation director, Ill take this band aid off since you keep looking at it. Pt denied HI and SI and did say he was not taking any medications. Pt refused to answer all other questions. Pt then stood up from his seated position and told this underwriter solicitation director to get out of his room. This underwriter solicitation director did leave. The majority of the information obtained for this evaluation was collected from [facility] and [facility] records. Diagnosis History Notes: Pt has a hx of schizophrenia. Prior suicide attempts Notes: Pt has a history of SI. Prior hospitalizations Notes: Pt has a hx of multiple hospitalizations [facility] and [facility] on 02/08/13, 06/07/12, 06/16/12. Treatment Responses Notes: Pt has a hx of non-compliance. History of violence Notes: Pt has a hx of being aggressive/combative. Pt is denying HI. Therapist: None Psychiatrist: Dr. Booker-Last visit was in December 2017 Medications (name, dosage, route, freq uency) Notes: Per [facility] eval 01/26/13, Past medications per [facility] records are invega sustenna q 4 weeks, with last injection 01/15/13 dose was increased from 156 mg to 234 mg within the past 7 months; propranolol 80 mg po per day; and Cogentin 1 mg po bid, however, he has been noncompliant with these medications in the past, per [facility] records. He has been compliant with his injection. Currently, pt is supposed to be on Depakote but pt is non-compliant with this med as well. Allergies/Reaction Notes: Codeine and Thorazine - shortness of breath. Sleep Notes: Unable to assess. Pt refused to answer. Appetite Notes: Unable to assess. Pt refused to answer. Medical/Surgical history Notes: Pt has a hx of COPD, diabetes, a hepatitis "b" carrier; he has cataracts and glaucoma. Substance use history (frequency, intensity, his tory, duration) Notes: Per prior [facility] eval on 01/26/13, "pt has a very long hx of addiction to marijuana and cocaine, currently using marijuana daily and using cocaine 1-2 times/week. His use of cocaine is far less than his previous addiction where he used it daily. Pt reported he has never been to a substance abuse treatment program and never had a significant period of sobriety from cocaine, it is just a matter of using it less and less often. He had been on a [facility] August 2012, but it is unclear what happened with this referral. " Unable to assess for current substance use hx. Family composition Notes: Per [facility] 01/26/13, Pt is estranged from his family. Need for family Answers: No participation in patient's care Family psychiatric/substance abuse history Notes: Per [facility] 01/26/13, Moc and Soc have hx of mental illness, diagnoses unknown. He reported there is also a lot of alcoholism in blood relatives. Developmental history Notes: Per [facility] 01/26/13 No childhood developmental issues identified. Pt is unwilling to discuss any trauma in childhood. Marital status/children Notes: Unable to assess. Pt refused to answer. Living situation Notes: Pt is homeless. Sexual history/orientation Notes: Unable to assess. Pt refused to answer. Peer support/family strengths Notes: Social support: Per [facility] 01/26/13 Pt does have some social support through friends and through [facility]. Education level/history Notes: Unable to assess. Pt refused to answer. Work history Notes: Pt is on disability. Notes: Pt is a vet. Unable to obtain more information. Legal Notes: Per [facility] 01/26/13, Pt got out of long term in October/November 2012. He was incarcerated for 3 months due to probation violations from using cocaine. He stated he is currently not on probation and has no pending charges. Pt is homeless and has been staying on a friend's floor. He lost his housing because several cocaine addicts had been "crashing" at his place. Pt was able to get most of them out, however, one stayed and trashed his place. Pt does have SSI income. Pt is estranged from his family and on disability for mental illness throughout his adult life. Pt reported that his moc is dying, although he has not been in touch with her for some time. Unable to assess current legal issues. Confucianism/Spiritual Notes: Unable to assess. Pt refused to answer. Leisure Notes: Unable to assess. Pt refused to answer. Collateral Notes: P Previous [facility] records Patient's strengths Answers: Artistic/Creative/Musical (Please select at least TWO strengths): Willingness [facility] Evaluation - Mental Status Exam Appearance: Answers: Unkempt Disheveled Eye Contact: Answers: Staring Mood: Answers: Irritable Affect: Answers: Agitated Angry Hostile Behavior: Answers: Inappropriate Uncooperative Aggressive Resistive to Care Speech: Answers: Irrelevant Unclear Mumbling Rambling Verbally Abusive Thought Process: Answers: Disorganized Distracted Paranoid Insight: Answers: Poor Judgement: Answers: Poor Pt reported to have Answers: No suicidal/self-injuring ideation/behavior? Pt reported to be making Answers: No suicidal/self-injuring threats? Pt reported to have Answers: No aggression/assault ideation/behavior? Pt reported to be making Answers: No aggression/assault threats? Pt exhibits inability to Answers: No care for self/grave disability? Ideation/behavior is Answers: No chronic? Patient has a specific Answers: No plan? Pt has access to means to Answers: No execute the plan? Ideation involves Answers: No serious/lethal intent? Ideation has Answers: No delusional/hallucinatory content? History of Answers: No suicidal/self-injuring ideation, behavior, or threats? History of Answers: No aggressive/assaultive ideation, behavior, or threats? History of serious Answers: No physical harm to self/others while in treatment setting? TLC Evaluation - Suicide/Homicide Risk Suicide Risk Factors: Answers: < 20 or > 40 Years of Age Alcohol/Heavy Drug Use Schizophrenia Unstable Living Situation Current Suicidal Answers: No Ideation? Current Suicidal Ideation Answers: No in the Past 48 Hours? Current Suicidal Ideation Answers: No in the Past Month? Current Suicidal Answers: No Ideation, Worst Ever? Suicide Internal Answers: None Protective Factors: Suicide External Answers: None Protective Factors: Ranking of patient's Answers: Low suicidal risk: Ranking of patient's Answers: Low homicidal risk: TLC Evaluation - Wrap-up AXIS I Diagnosis (include DSM-V and ICD-10 codes), must also be entered in [employer], which is the source of truth. Notes: Schizophrenia 295.90 (F20.9) In consultation with [facility] hospitalist Gil Sauceda MD [facility] on-call psychiatrist Rl Maharaj MD concurred that pt does not appear to meet 27-65 criteria requiring psychiatric hospitalization as pt does not appear to be an imminent risk of harm to self/others/gravely disabled due to a mental illness condition. Dr. Maharaj provided telephone order read back vacating hold at [facility] 12:30 Evaluation End Date and 05/27/2018 02:45 PM Time (HH:MM): Date Signed: 05/27/2018 02:50 PM Electronically Signed By:Raegan Zavaleta
--- NOTE | 2018-05-27 14:51 | ASMTTCLDSP ---
TLC Discharge Disposition Disposition: Answers: Discharge If Answers: Yes DISCHARGED: Patient/family given suicide hotline info & [employer] brochure? Disposition Notes: Notes: Pt was given resources to [facility] and encouraged to follow up. Discharge Concerns/Recommendations: Notes: In consultation with [facility] hospitalist Gil Sauceda MD [facility] on-call psychiatrist Rl Maharaj MD concurred that pt does not appear to meet 27-65 criteria requiring psychiatric hospitalization as pt does not appear to be an imminent risk of harm to self/others/gravely disabled due to a mental illness condition. IF M1 VACATED: Dr. Maharaj provided telephone order read back vacating M1 hold at [facility] 12:30 Psychiatrist vacating M1 Rl Maharaj MD Hold: Date and time M1 hold 05/27/2018 12:30 PM vacated (time format is hh:mm): Date Signed: 05/27/2018 02:51 PM Electronically Signed By:Raegan Zavaleta
== END 2018-05-27 13:00 | disposition left against medical advice (07) | DRG 885 ==
LOC: EDBD → EDUNIT# → F2N 05-27 06:25 → OBSVTOIN 05-27 09:29
PROVIDERS: ADMIT Student in an Organized Health Care Education/Training Program; ATTEND Student in an Organized Health Care Education/Training Program
DX: F25.0 Schizoaffective disorder, bipolar type (principal); J44.1 Chronic obstructive pulmonary disease with (acute) exacerbation; E11.9 Type 2 diabetes mellitus without complications; Z79.4 Long term (current) use of insulin; Z59.0 Homelessness; G40.909 Epilepsy, unspecified, not intractable, without status epilepticus; F17.210 Nicotine dependence, cigarettes, uncomplicated; Z91.14 Patient's other noncompliance with medication regimen
CPT/HCPCS: 96374; G0480; J1650; J1815; J2250; J2930

== ENCOUNTER 2018-05-29 11:13 | Inpatient (IN) | payer OTHER ==
--- NOTE | 2018-05-29 11:36 | EDPHY ---
H & P Stated Complaint: M1 - Medical/Surgical History Hx Asthma: No Hx Chronic Respiratory Disease: No Hx Diabetes: No Hx Cardiac Disease: No Hx Renal Disease: No Hx Cirrhosis: No Hx Alcoholism: No Hx HIV/AIDS: No Hx Splenectomy or Spleen Trauma: No Other PMH: Seizures, Schizoaffective disorder (Hx psychosis), Bipolar (Hx Manic episodes) - Social History Smoking Status: Light smoker Time Seen by Provider: 05/29/18 11:25 HPI/ROS: CHIEF COMPLAINT: M1 HISTORY OF PRESENT ILLNESS: 62-year-old male history of schizoaffective disorder arrives via ambulance on M1 hold for agitated behavior, urinating in the parking lot, pouring coffee on the floor, arrives on M1 hold for acute agitation. History of noncompliance. He has no complaints of pain or discomfort. History is challenging this patient as he has tangential speech, flight of ideas. REVIEW OF SYSTEMS: 10 systems reviewed and negative with the exception of the elements mentioned in the history of present illness PAST MEDICAL & SURGICAL HISTORY: diabetes. Seizure disorder. Schizoaffective disorder. SOCIAL HISTORY: Denies acute alcohol or drug use PHYSICAL EXAM (Prior to examination, patient consented to physical exam, hands were washed and my usual and customary physical exam procedures followed) 1) GENERAL: poorly kept, untidy, agitated, urinating on the floor when I enter the room. 2) HEAD: Normocephalic, atraumatic 3) HEENT: Pupils equal, round, reactive to light bilaterally. Sclera anicteric. 4) NECK: Full range of motion, no meningeal signs. 5) LUNGS: Clear auscultation bilaterally, no wheezes, no rhonchi, no retractions. 6) HEART: Regular rate and rhythm, no murmur, no heave, no gallop. 7) ABDOMEN: No guarding, no rebound, no focal tenderness n, 8) MUSCULOSKELETAL: No peripheral edema or discoloration. 9) BACK: No visual or palpable abnormality. 10) SKIN: No rash, no petechiae. 11) Psychiatric: Patient is oriented X 3, there is no agitation. DIFFERENTIAL DIAGNOSIS: In no particular order including but not limited to suicidal ideation, homicidal ideation, psychosis (Michael,D Khushi) Constitutional: Initial Vital Signs Temperature (C) 37.1 C 05/29/18 11:20 Heart Rate 92 05/29/18 11:20 Respiratory Rate 18 05/29/18 11:20 Blood Pressure 145/86 H 05/29/18 11:20 O2 Sat (%) 91 L 05/29/18 11:20 O2 Delivery Mode Room Air Allergies/Adverse Reactions: chlorpromazine HCl [From Thorazine] Allergy (Verified 05/29/18 11:19) codeine [Codeine] Allergy (Verified 05/29/18 11:19) Home Medications: Medication Instructions Recorded Amoxicillin/Clavulanate Pot 875 mg PO BID #20 tab 05/25/18 [Augmentin 875 MG TAB (*)] Divalproex [Depakote] 500 mg PO BID #14 tab 05/25/18 Medical Decision Making ED Course/Re-evaluation: I assumed care of this patient at 5:00 p.m. From Ammon Rodriguez. Patient is well known to [facility] with a history of schizophrenia and medication noncompliance. He presented agitated and psychotic and received IM Ativan. Patient seen and evaluated by mental health. Placement will be sought. I was advised that 10:40 p.m. that placement has not been able to be found thus far. Search for an inpatient bed will be continued tomorrow. Patient's care was assumed by Dr. Jose Null at 11:00 p.m.. (Imelda Elizabeth) 11:40 a.m.: I am familiar with this patient. I reviewed his old medical records. He is on M1 hold. He is agitated. He has flight of ideas. 1203 p.m.:: I reviewed the patient's old medical records. When I enter the room to evaluate the patient again he is actively urinating on the floor and agitated. He will be given intramuscular Ativan. He is challenging to evaluate given his agitation, flight of ideas. 1:30 p.m.: Re-evaluation, sleeping, easily awoken, yells at me, "Get me some eggs with hollandaise sauce!" 5:00 p.m.: Care turned over to Dr. Imelda Elizabeth . Mental health placement pending (Bart Rodriguez) Other Provider: 10am - Dr. Perkins has requested we treat patient with haldol, insulin and depakote. Patient has been accepted for transfer to by Dr. Perkins. (William Dillon) [address] Kevin colvin pending placement. [address] Dillon pending placement. No issues during my care this patient overnight. (Dick Null) - Data Points Laboratory Results: Laboratory Results 05/29/18 11:40 05/30/18 10:00 Medications Given: Amoxicillin/Clavulanate Potassium (Augmentin 875mg) 875 mg PO BID [facility] PRN Reason: Protocol Stop: 06/29/18 20:59 Last Admin: 05/31/18 07:29 Dose: 875 mg Insulin Glargine (Lantus Syringe) 20 units SC HS [facility] Stop: 11/26/18 20:59 Last Admin: 05/30/18 20:54 Dose: 20 units Insulin Human Lispro (Humalog Lispro) 0 unit SC TIDMEAL NARCISO PRN Reason: Protocol Stop: 11/26/18 17:59 Last Admin: 05/31/18 08:36 Dose: 2 unit Lorazepam (Ativan) 0.5 - 1 mg PO Q6HRS PRN PRN Reason: Anxiety, Able to Take PO Stop: 11/26/18 15:57 Last Admin: 05/31/18 10:30 Dose: 1 mg Paliperidone (Invega) 6 mg PO DAILY NARCISO Stop: 11/27/18 08:59 Last Admin: 05/31/18 07:29 Dose: 6 mg Valproic Acid (Depakene Oral Liquid) 750 mg PO BID NARCISO Stop: 11/27/18 08:59 Last Admin: 05/31/18 07:29 Dose: 750 mg Discontinued Medications Divalproex Sodium (Depakote) 500 mg PO BID NARCISO Stop: 11/26/18 20:59 Last Admin: 05/30/18 20:37 Dose: 500 mg Haloperidol (Haldol) 10 mg PO EDNOW ONE Stop: 05/30/18 07:36 Last Admin: 05/30/18 10:09 Dose: 10 mg Insulin Human Regular (Humulin R) 8 unit SC EDNOW ONE Stop: 05/30/18 10:51 Last Admin: 05/30/18 11:12 Dose: 8 units Lorazepam (Ativan Injection) 2 mg IM EDNOW ONE Stop: 05/29/18 12:05 Last Admin: 05/29/18 12:11 Dose: 2 mg Lorazepam (Ativan) 2 mg PO EDNOW ONE Stop: 05/30/18 11:37 Last Admin: 05/30/18 12:00 Dose: 2 mg Valproic Acid (Depakene) 1,000 mg PO ONCE ONE Stop: 05/30/18 11:19 Last Admin: 05/30/18 11:29 Dose: Not Given Valproic Acid (Depakene Oral Liquid) 1,000 mg PO ONCE ONE Stop: 05/30/18 11:31 Last Admin: 05/30/18 12:00 Dose: 1,000 mg Valproic Acid (Depakene Oral Liquid) 1,000 mg PO ONCE ONE Stop: 05/30/18 11:46 Last Admin: 05/30/18 12:01 Dose: Not Given Point of Care Test Results: Chemistry 05/30/18 13:02 POC Glucose 237 mg/dL H mg/dL (70-100) Departure - Departure Disposition: [facility] IP Clinical Impression: Acute psychosis, Schizoaffective disorder Condition: Good
[2018-05-29 11:54] LABS: PLATELET COUNT 150 10^3/uL (150-400)
[2018-05-29] MEDS ORDERED: LORazepam 2 MG/ML INJ IM ONE (12:04)
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
--- NOTE | 2018-05-29 15:15 | ASMTLCPROG ---
Notes Note: Notes: Pt was read the Patient Rights and Responsibilities Statement on (05/29/2018/12:30), original placed on chart, and was given photocopy of Rights. Pt declined to sign the Patient Rights due to symptoms. Pt appeared disorganized in thought, rambling and nonsensical speech. Date Signed: 05/29/2018 03:14 PM Electronically Signed By:Raegan Zavaleta
--- NOTE | 2018-05-29 22:23 | ASMTLCPROG ---
Notes Note: Notes: Bed Search update [facility]-denied due to acuity [facility]-still haven't reviewed clinicals. [facility]- denied due to medical concerns/acuity. [facility]-no acute beds. [facility]-no beds [facility]-no beds [facility]-left vmessg for call back [facility]-no beds [facility]-still reviewing Date Signed: 05/29/2018 10:23 PM Electronically Signed By:Raegan Zavaleta
[2018-05-30] MEDS ORDERED: HALOPERIDOL 10 MG TAB PO ONE (07:35)
[2018-05-30] MEDS ORDERED: INSULIN REGULAR HUMAN 100 UNIT/ML UNIT SC ONE (10:50)
[2018-05-30] MEDS ORDERED: VALPROIC ACID 250 MG CAP PO ONE (11:18)
[2018-05-30] MEDS ORDERED: LORazepam 2 MG/ML INJ IM PRN (11:29)
[2018-05-30] MEDS ORDERED: VALPROIC ACID 250 MG/5 ML UDCUP PO ONE ×2 (11:30→11:45)
[2018-05-30] MEDS ORDERED: LORazepam 1 MG TAB PO ONE (11:36)
[2018-05-30] MEDS ORDERED: MAG HYDROX/AL HYDROX/SIMETH 30 ML UDCUP PO PRN (15:58)
[2018-05-30] MEDS ORDERED: NICOTINE POLACRILEX 2 MG GUM B PRN (15:58)
[2018-05-30] MEDS ORDERED: LORazepam 0.5 MG TAB PO PRN (15:58)
[2018-05-30] MEDS ORDERED: MAGNESIUM HYDROXIDE 30 ML UDCUP PO PRN (15:58)
[2018-05-30] MEDS ORDERED: OLANZapine DISINTEGR 10 MG TAB PO PRN (15:58)
[2018-05-30] MEDS ORDERED: D50W 25 GM/50 ML SYR IVP PRN (16:08)
[2018-05-30] MEDS: INSULIN LISPRO 100 UNIT/ML SC SCH (17:32)
[2018-05-30] MEDS: AMOXICILLIN/CLAVULANATE POT 875/125 MG TAB PO SCH (20:37)
[2018-05-30] MEDS: INSULIN GLARGINE 100 UNITS/ML UNIT SC SCH (20:54)
[2018-05-30] MEDS ORDERED: DIVALPROEX NA 500 MG TAB PO SCH (21:00)
[2018-05-31] MEDS: PALIPERIDONE 3 MG TAB.ER PO SCH (07:29)
[2018-05-31] MEDS: VALPROIC ACID 250 MG/5 ML UDCUP PO SCH ×2 (07:29→19:47)
[2018-05-31] MEDS: AMOXICILLIN/CLAVULANATE POT 875/125 MG TAB PO SCH (07:29)
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
[2018-05-31] MEDS: INSULIN LISPRO 100 UNIT/ML SC SCH ×3 (08:36→16:36)
--- NOTE | 2018-05-31 08:52 | BAPA ---
[f rep st] ADMISSION PSYCHIATRIC ASSESSMENT DATE OF SERVICE: 05/31/2018 CHIEF COMPLAINT: "I don't really care." HISTORY OF PRESENT ILLNESS: From the ED note dated 05/29/2018, the patient with a history of schizoaffective disorder, arrived to the emergency department by ambulance on an M1 hold for agitated behavior, urinating in the parking lot, pouring coffee on the floor and arrived on an M1 hold for acute agitation. The patient has a history of noncompliance. History was reported as challenging with the patient due to tangential speech and flight of ideas. From the [facility] evaluation dated 05/29/2018, the patient was placed on an M1 hold with start date and time of 05/29/2018, at 10:30 a.m. The patient reported to the [facility] property developer "would you want 1 more blood sample." The patient was brought to the emergency department on an M1 hold from [facility] after patient got into a fight with another resident, became threatening and poured hot coffee on the floor. M1 hold states that client is nonsensical and rambling, harassing others and urinating in parking lot, pouring coffee on others. The patient was seen at [facility] on 05/26/2018, presenting manic, agitated, bizarre behavior at the homeless alf where he stays. The patient also has been at the ED on 2017, for seizures. The patient reportedly not taking his medications, although supposed to be on Depakote. The patient was recently admitted to the hospital for several days for aspiration pneumonia and underlying COPD. The patient reported left each time AMA. The patient was admitted to ICU for hypoxia and was medically cleared on 05/27/2018. While in the ICU, the patient became escalated and aggressive toward staff, requiring security to be present in his room. The patient reportedly threw his urinal at the nurse and was verbally aggressive toward staff. The patient had most recently seen Dr. Booker in December. At that time, patient had 10 months of recovery from drugs and was not taking any antipsychotic medications. During the [facility] evaluation, patient was verbally abusive, uncooperative and was using profanity. Security was present during the evaluation. The patient was uncooperative throughout the evaluation. The patient appeared disorganized and paranoid. The patient reported he is not taking his medications as prescribed and refused to answer questions. PAST PSYCHIATRIC HISTORY: The patient has a history of schizophrenia. The patient has a long history of medication nonadherence. The patient has a history of multiple hospitalizations, including [facility] and [facility] on 02/08/2013, 06/07/2012 and 06/16/2012. The patient has a history of being aggressive and combative. Past medications per [facility] records include Invega Sustenna q.4 weeks with last injection on 01/15/2013. At that time, dose was increased from 156 to 234 mg within the past 7 months, propranolol 80 mg p.o. daily and Cogentin 1 mg p.o. twice daily. The patient has a history of noncompliance with these medications. The patient reportedly had been compliant with his injection. The patient is prescribed Depakote, however, is also non adherent with this medication. The patient reports to this BAND SINGER has not taken his medications for 2 years. ALLERGIES: 1. Codeine. 2. Thorazine. CURRENT MEDICATIONS: 1. Augmentin 875 mg p.o. twice daily. 2. Dextrose 50% syringe 25 gm IVP p.r.n. 3. Lantus syringe 20 units s.c. h.s. 4. Humalog lispro. See protocol s.c. three times daily meal. 5. Ativan 0.5 to 1 mg p.o. q.6 hours p.r.n. 6. Maalox syrup 30 mL p.o. q.6 hours p.r.n. 7. Milk of magnesia 30 mL p.o. daily p.r.n. 8. Nicorette 2 mg q.1 hour p.r.n. 9. Zyprexa Zydis 10 mg p.o. q.4 hours p.r.n. 10. Invega 6 mg p.o. daily. 11. Invega Sustenna 234 mg IM to be administered on 06/02/2018. 12. Invega Sustenna 156 mg IM to be administered on 06/05/2018. 13. Valproic acid oral liquid 750 mg p.o. twice daily. PAST MEDICAL HISTORY: The patient has a history of COPD, diabetes, hepatitis B carrier, cataracts and glaucoma. SOCIAL HISTORY: Patient's mother and sister have a history of mental illness. Diagnoses at this time unknown. The patient reported history of alcoholism in immediate relatives. No childhood developmental issues reported. The patient unwilling to discuss history of childhood trauma and abuse. The patient does report some social support through friends and also [facility]. It is reported that patient is a . At this time, unable to obtain any further information. The patient is currently on disability. The patient is currently homeless. Will continue to gather patient's social history throughout the course of his hospitalization. SUBSTANCE USE HISTORY: The patient has a history of marijuana and cocaine use, currently using marijuana daily and reportedly using cocaine 1 to 2 times a week. The patient reports a history of using cocaine daily. The patient reports no history of substance abuse treatment program and no significant period of sobriety from cocaine. The patient reports it was just a matter of using less and less often. Unable to gather any further substance use history from patient at this time. We will continue to assess substance use history throughout the course of the patient's hospitalization. FAMILY PSYCHIATRIC HISTORY: Patient reports mother and sister with history of mental illness and patient reports history of alcoholism in his immediate family. Will continue to gather family psychiatric history throughout the course of the patient's hospitalization. ADMISSION LABS AND STUDIES: 1. CBC within normal limits except hemoglobin was elevated at 19.6, hematocrit elevated at 56.8, MPV elevated at 12.1, eosinophils low at 0.1, absolute monocytes elevated at 0.92 and absolute eosinophils low at 0.01. 2. BMP within normal limits except BUN was elevated at 26, glucose elevated at 332, POC glucose from 05/30/2018, at 2044 was elevated at 192 and that is the most recent POC glucose. 3. Hemoglobin A1c pending. 4. Liver function within normal limits except conjugated bilirubin was elevated at 0.6, AST elevated at 65. 5. Lipid panel within normal limits except VLDL cholesterol was elevated at 29. 6. Toxicology screen non negative for THC, negative for other substances screened and negative for ethyl alcohol. 7. Valproic acid less than 10. This is due to the likelihood of patient's nonadherence as patient reports not taking medications for the past 2 years. MENTAL STATUS EXAM: The patient is a well-nourished male looking older than stated chronological age. Attire is appropriate and dress is hospital garb. Grooming status is inappropriate and disheveled. Ambulation is independent. Gait is normal and coordinated. Posture is normal and relaxed. Eye contact is appropriate and adequate. Motor activity is appropriate with purposeful, organized, coordinated movements, with no involuntary movements noted. Attitude is uncooperative, guarded, defensive, irritable. The patient appears disinterested and does not relate well to this interviewer. Language production is unspontaneous. Rate is hesitant. Latency of response is prolonged with irritable angry tone. Articulation is clear. The patient reports mood as "okay" with incongruent affect. Patient's affect appears to be irritable, angry. The patient's thought process is nonlinear and illogical. The patient does not report suicidal or homicidal thoughts, ideas, or plans. The patient denies auditory or visual hallucinations. Patient denies delusions. The patient does not appear to be attending to internal stimuli. Patient is oriented to person, place, and time. The patient's attention and concentration are poor. The patient's insight and judgment are poor. The patient does not report undesirable side effects from current medications. DIAGNOSES: Based on the patient's history and current presentation, the patient 's diagnoses are: 1. Schizophrenia. 2. Homelessness. 3. Rule out cannabis use disorder, severe. FORMULATION: The patient is a 62-year-old male single, unemployed and homeless who presents to the hospital involuntarily after being placed on an M1 hold at [facility] for being gravely disabled due to mental illness. The patient requires continued care because of current psychosis. The patient presents with problems of medication nonadherence and decompensation, exacerbation of symptoms of patient's underlying mental illness. The patient's life has been affected by these problems, including inability to appropriately care for himself. The patient has a reported past psychiatric history of schizophrenia, is currently not adherent to prescribed medications. Psychosocial stressors include homelessness, lack of supports, and history of medication nonadherence. The patient is a high safety risk due to current psychosis, acute agitation. Protective factors while hospitalized include ongoing safety checks, active involvement in treatment and support from our treatment team. The patient could benefit from inpatient hospitalization for safety, crisis stabilization, and medication evaluation. PLAN: 1. Medications: Will continue current medications listed above. No other medication changes at this time as more time is needed to determine ongoing tolerability and efficacy. Plan is to continue to observe patient for response and side effects from medications, and ongoing monitoring and evaluation. 2. Review with patient informed consent and recommendations for psychotropic medication treatment listed below 3. Labs: no additional labs at this time 4. Therapy: continue milieu and group therapy 5. Further investigation including gathering information from patients relatives and review of past case records to inform treatment plan. 6. Safety/Wellness plan and follow-up outpatient appointments to be established prior to discharge. Next steps are for patient to meet with nurse care manager to plan a safe discharge plan and establish outpatient services for ongoing treatment. 7. Confer with inpatient treatment team regarding treatment plan. 8. Address psychosocial stressors by meeting with after school caregiver to establish discharge plan including referrals for outpatient services. 9. Legal status: M1 10. Consider discharge next week if patient is in stable condition, safe, and has a safe discharge plan. 11. Substance abuse interventions: cannabis ESTIMATED LENGTH OF STAY: 5-7 days PSYCHOTROPIC MEDICATION TREATMENT INFORMED CONSENT and RECOMMENDATIONS: Review nature of condition, diagnosis, and prognosis. Review nature and purpose of psychotropic medication treatment. Review type of psychotropic medications being ordered. Review risk and benefits of psychotropic medication treatment. Review probable length of time will need to take medications. Review risk and benefits of not undergoing psychotropic medication treatment. Review alternative treatments to psychotropic medications. Review psychotropic medications contraindications, drug-drug interactions, side effects, and importance of reporting any side effects to a psychiatric provider or nurse during inpatient hospitalization, and upon discharge to patients psychiatric outpatient provider, primary care provider, or other health progressive care nurse. Review importance of asking a nurse, psychiatric provider, or primary care provider any questions or problems concerning the psychotropic medications. Verify patient understands the information that has been provided, and understands, accepts, and agrees to psychotropic medications. Review patients safety plan and importance of patient to communicate to staff while hospitalized if patient is ever a danger to self/others, or unable to care for self, and upon discharge, the importance for patient to contact [facility] or [facility], or go to the nearest emergency room, if patient is ever a danger to self/others, or unable to care for self. Recommend that upon discharge patient establish medication management treatment with a psychiatric provider, establishes routine therapy appointments, and follow-up with primary care provider. Verify patient understands and agrees to these recommendations. /[id number]/MODL MTDD
[2018-05-31] MEDS ORDERED: DIVALPROEX ER 500 MG TAB PO SCH (09:00)
[2018-05-31] MEDS ORDERED: ALBUTEROL 3 ML DEYVIAL IH PRN (09:05)
[2018-05-31] MEDS ORDERED: ALBUTEROL 60 PUFFS/8 GM MDI IH PRN (10:30)
--- NOTE | 2018-05-31 11:25 | PDMN ---
Medical Necessity Medical necessity: Pt meets IP criteria per & ROGELIO [id number]; est los >2 mn for eval/tx of schizophrenia; pt on M1 hold; admit for further eval, safety, crisis stabilization & med management; hx homelessness, COPD, diabetes; per H&P & order 05/30/18
--- NOTE | 2018-05-31 12:33 | BCON ---
[f rep ] BEHAVIORAL HEALTH CONSULTATION INTERNAL MEDICINE CONSULTATION DATE OF CONSULTATION: 05/31/2018 REFERRING PHYSICIAN: Eugenio Watson NP REASON FOR REFERRAL: Medical clearance for inpatient behavioral [facility] stay. HISTORY OF PRESENT ILLNESS: This patient has had multiple emergency department visits and hospital admissions over the past several weeks for seizures, COPD exacerbation with aspiration pneumonia, and finally, manic behavior which is what brought him to the emergency department most recently. He was placed on an M1 hold and admitted for further psychiatric care. During one of his recent hospitalizations, he was diagnosed with diabetes mellitus type 2 with elevated blood sugars and hemoglobin A1c greater than 10. He currently is without complaints. He reports his breathing is improved, though he has an occasional cough. He does not recall having a prior diagnosis of diabetes. PAST MEDICAL HISTORY: 1. Mental health issues with diagnoses in the chart of schizoaffective disorder , acute psychosis, cannabis dependence, and cocaine dependence. 2. Seizure disorder. 3. Pneumonia. 4. COPD. 5. Hepatitis C. 6. Left femur fracture. PAST SURGICAL HISTORY: He has had a surgical repair of the left femur fracture. MEDICATIONS PRIOR TO ADMISSION: He was prescribed divalproex 500 mg p.o. b.i.d. and amoxicillin/clavulanate 875 mg p.o. b.i.d. It is unknown whether he was compliant with these medications. SOCIAL HISTORY: He is a former [employer]. He has not had a subsequent career. He is homeless. He is a cigarette smoker and uses occasional alcohol. He smokes marijuana. He is adamant regarding being discharged soon from inpatient [facility] as he reports he has Section 8 housing and does not want to lose that. FAMILY HISTORY: He reports that his grandmother had diabetes. REVIEW OF SYSTEMS: He reports his breathing is improved. He has occasional cough. He denies fevers or chills. He denies recent weight change. He denies nausea, vomiting, constipation, or diarrhea. He denies loss of sensation in the extremities. Otherwise, a 10-point review of systems is negative. PHYSICAL EXAM: VITAL SIGNS: Blood pressure is 118/73, heart rate is 88, respiratory rate is 14, oxygen saturation was 88% on room air this morning at 6: 51, temperature was 36.8 degrees centigrade. His oxygenation has been normal at other times. GENERAL: This is an unkempt man with longish hair and an untrimmed carmona, dressed in a green hospital smock, ambulatory in the dial, cooperative, and in no acute distress. HEENT: Extraocular movements are intact. Pupils are equal, round, reactive to light. Mucous membranes are moist. Dentition is in good condition. He has an uncrowded airway, Mallampati class 1. NECK: Supple. HEART: There is a regular rate and rhythm with no murmurs, rubs, or gallops. There is no JVD and no edema. LUNGS: Clear to auscultation bilaterally. ABDOMEN: Benign. EXTREMITIES: There is no cyanosis , clubbing, or edema. Radial and dorsalis pedis pulses are 2+ bilaterally. NEUROLOGIC: He is alert and oriented x3. Cranial nerves 2 through 12 are grossly intact. There is no focal weakness. Sensation is intact to light touch and gait is within normal limits. LABORATORY STUDIES: From 2 days ago, CBC revealed an elevated hemoglobin and hematocrit at 19.6 and 56.8, and these abnormalities have been present throughout his recent hospitalizations and did not resolve with hydration. Otherwise, CBC was overall within normal limits. Serum chemistry revealed some dehydration on 05/29/2018 with a BUN of 31 and a creatinine of 0.7. This improved on 05/30/2018 with a BUN of 26 and a creatinine of 0.8. He had elevated glucoses as high as 332. Hemoglobin A1c was 10.8 today. Liver function tests revealed a slightly high conjugated bilirubin at 0.6 and a slightly high AST at 65, but otherwise, liver function tests were normal. Lipid panel was quite benign with cholesterol of 157, LDL of 82, and an HDL of 46. Toxicology screen in the serum was negative for salicylates, acetaminophen, or ethyl alcohol. Valproic acid level was undetectable. Toxicology screen in the urine was non-negative for marijuana but otherwise negative for substances of abuse. ASSESSMENT AND RECOMMENDATIONS: 1. Mental health issues. Pending further evaluation and treatment per Psychiatry and the mental health team. 2. Diabetes mellitus type 2. He has improved control on insulin with insulin glargine at 20 units at bedtime and a sliding scale of insulin lispro. His fasting blood sugar today was 159. I have initiated metformin at 250 mg twice daily. If he tolerates this, will increase tomorrow to 500 mg twice daily, and ultimately, the goal is 1000 mg twice daily. It is hoped that he may not need insulin. Would consider addition of a second oral agent. 3. Seizure disorder. He has been seen in the course of his recent hospitalizations by neurologist, Dr. Rushing, who prescribed valproic acid at 500 mg twice daily and would advise continuing that medication. 4. Chronic obstructive pulmonary disease. He had a recent exacerbation with aspiration pneumonia. CT chest ruled out pulmonary embolus. He appears to have a normal respiratory rate and normal lung exam at present. Would monitor for symptoms and consider initiating an inhaler. Once it is demonstrated that he is safe in terms of suicide risk, would consider initiating oxygen at night as he appears to desaturate when at rest or sleeping. On review of recent hospitalizations it appears that he has had adequate dosing of antibiotics. Has a normal white blood cell count and is not otherwise symptomatic of pneumonia. I will discontinue amoxicillin/clavulanate. 5. Polycythemia. Likely secondary, however, due to chronic hypoxia. However, I will order testing the JAK2 mutation and an erythropoietin level to rule out a myeloproliferative disorder and confirm an elevated erythropoietin which would be consistent with secondary polycythemia rather than a myeloproliferative disorder. 6. Hepatitis C by history. His liver function tests are normal at this point. Should he be able to stabilize his housing situation and establish with local medical providers, he could consider pursuing treatment. I see no medical contraindications to this patient's continued stay on the inpatient behavioral health unit or to any psychiatric medications or procedures. Thank you very much for including me in the care of this patient and please do not hesitate to contact me or the hospitalist service should there be need for further medical evaluation. /[id number]/MODL MTDD
[2018-05-31] MEDS: metFORMIN HCL 500 MG TAB PO SCH (16:37)
[2018-05-31] MEDS: INSULIN GLARGINE 100 UNITS/ML UNIT SC SCH (19:47)
[2018-06-01 06:28] VITALS: BP 114/65
--- NOTE | 2018-06-01 06:31 | SOAPPROG ---
SOAP Progress Note Assessment/Plan: Assessment: Schizophrenia. R/O Schizoaffective Disorder, Bipolar Type. Slight improvement noted; notably less irritable, improved judgment with agreement to CASTELLANOS plan ( see subjective/objective note). Patient could benefit from continued inpatient hospitalization for crisis stabilization, safety, and medication evaluation. Due to patients history of medication non-adherence, patient could benefit from CASTELLANOS prior to hospitalization. Consider discharge Tuesday after second loading dose administered. Plan: 1. Psychotropic medications: After reviewing options, risks, and benefits patient agrees to continue current medications and agrees to Invega Sustenna 234 mg IM tomorrow and second loading dose 156 mg IM on Tuesday prior to discharge. No other medication changes at this time as more time is needed to determine ongoing tolerability and efficacy. Plan is to continue to observe patient for response and side effects from medications, and ongoing monitoring and evaluation. 2. Review with patient informed consent and recommendations for psychotropic medication treatment listed below 3. Labs: no additional labs at this time 4. Therapy: continue milieu and group therapy 5. Further investigation including gathering information from patients relatives and review of past case records to inform treatment plan. 6. Safety/Wellness plan and follow-up outpatient appointments to be established prior to discharge. Next steps are for patient to meet with restorative care technician to plan a safe discharge plan and establish outpatient services for ongoing treatment. 7. Confer with inpatient treatment team regarding treatment plan. 8. Psychosocial stressors addressed through patient case coordinator 9. Legal status: M1 10. Consider discharge this week if patient is in stable condition, safe, and has a safe discharge plan. PSYCHOTROPIC MEDICATION TREATMENT INFORMED CONSENT and RECOMMENDATIONS: Review nature of condition, diagnosis, and prognosis. Review nature and purpose of psychotropic medication treatment. Review type of psychotropic medications being ordered. Review risk and benefits of psychotropic medication treatment. Review probable length of time patient will need to take medications. Review risk and benefits of not undergoing psychotropic medication treatment. Review alternative treatments to psychotropic medications. Review psychotropic medications contraindications, drug-drug interactions, side effects, and importance of reporting any side effects to a psychiatric provider or nurse during inpatient hospitalization, and upon discharge to patients psychiatric outpatient provider, primary care provider, or other health child care leader. Review importance of asking a nurse, psychiatric provider, or primary care provider any questions or problems concerning the psychotropic medications. Verify patient understands the information that has been provided, and understands, accepts, and agrees to psychotropic medications. Review patients safety plan and importance of patient to report to staff while hospitalized if patient is ever a danger to self/others, or unable to care for self, and upon discharge, the importance for patient to contact [facility] or [facility], or go to the nearest emergency room, if patient is ever a danger to self/others, or unable to care for self. Recommend that upon discharge patient establish medication management treatment with a psychiatric provider, establishes routine therapy appointments, and follow-up with primary care provider. Verify patient understands and agrees to these recommendations. 06/01/18 06:30 Subjective: Following up with patient for evaluation of psychosis and safety. Patient reports, "I am doing good, just want to know when I am going to get out of here? " Patient expresses the following psychiatric symptoms irritable/agitated. Patient reports no side effects from current medications, and agrees to continue medications. Patient agrees to CASTELLANOS plan as follows: first loading dose Invega Sustenna 234 mg IM tomorrow and second loading dose Invega Sustenna 156 mg IM on Tuesday with plan to discharge after. Objective: Vital Signs Temp Pulse Resp BP Pulse Ox 36.8 C 100 20 114/65 90 L 06/01/18 00:30 06/01/18 00:30 06/01/18 00:30 06/01/18 00:30 06/01/18 00:30 NURSING REPORT: Consulted with nursing for update on patients progress in treatment. Nurses report patient is not engaged in treatment, is not attending groups, slept 8 hours, expresses the following psychiatric symptoms: irritable, exhibits the following psychiatric symptoms: irritable/agitated, withdrawn from social interactions; is eating all meals, is agreeable to medications, and denies SI/HI, denies AH, denies VH, and denies delusions. MSE: The patient is a well-nourished male looking older than stated chronological age. Attire is appropriate dress is hospital garb. Grooming status is appropriate. Ambulation is independent. Gait is normal and coordinated. Posture is normal. Eye contact is appropriate. Motor activity is appropriate with purposeful, organized, coordinated movements; with no involuntary movements. Attitude is fairly cooperative, at times patient is defensive and guarded. Patient appears attentive and relates well to this interviewer. Language production is spontaneous. R/R/V normal. Articulation is clear. Patient reports mood as okay with congruent affect. Patients thought process is linear and logical. Patient does not report suicidal/ homicidal thoughts, ideas, or plans. Patient denies auditory, visual hallucinations. Patient denies delusions. Patient does not appear to be attending to internal stimuli. Patients attention and concentration are fair. Patient is oriented to person, place, and time. Patients insight is poor. Patients judgment is poor. - Time Spent With Patient Time Spent With Patient: 15 minutes, met with patient individually. - Pending Discharge Pending Discharge Within 24 Hours: No Pending Discharge Within 48 Hours: No ICD10 Worksheet Patient Problems: Problems Problem Status Onset Acute psychosis Acute Schizoaffective disorder Acute Altered mental status Acute Aspiration pneumonia Acute Cannabis dependence Acute Cocaine dependence Acute Hyperglycemia due to type 2 diabetes mellitus Acute Hypoxia Acute Pneumonia Acute Seizure Acute Seizure disorder Acute
[2018-06-01] MEDS: metFORMIN HCL 500 MG TAB PO SCH (08:38)
[2018-06-01] MEDS: VALPROIC ACID 250 MG/5 ML UDCUP PO SCH ×2 (08:38→08:53)
[2018-06-01] MEDS: PALIPERIDONE 3 MG TAB.ER PO SCH ×2 (08:39→08:53)
[2018-06-01] MEDS: INSULIN LISPRO 100 UNIT/ML SC SCH (08:40)
--- NOTE | 2018-06-01 10:51 | ASMTBHDC ---
Notes Note: Notes: CC was not able to confirm all follow up apts due to short length of stay, etc. Follow up with: [facility] [address] [place] [address] Dr. Ethan Booker Please note, CC was not able to confirm follow up apts, due to short length of stay [facility] Location: [address] [place] [id number] Coordinated Entry must be done prior to discharge [facility] [address] [place] [address] Date Signed: 06/01/2018 10:50 AM Electronically Signed By:Dean Grewal
--- NOTE | 2018-06-01 12:42 | BDS ---
[f rep st] BEHAVIORAL HEALTH DISCHARGE SUMMARY REASON FOR ADMISSION: From the ED note dated 05/29/2018, patient with history of schizoaffective disorder, arrived via ambulance on M1 hold for agitated behavior, urinating in a parking lot, pouring coffee on a floor and arrived on an M1 hold for acute agitation. The patient does have a history of medication nonadherence. The patient was admitted involuntarily on an M1 hold due to being gravely disabled due to a mental illness. Patient was admitted for safety , crisis stabilization, and medication evaluation. ADMITTING DIAGNOSES: 1. Schizoaffective disorder. 2. Stimulant use disorder, amphetamine type. 3. Cannabis use disorder, severe. 4. Homelessness. ADMISSION PHYSICAL EXAM: The patient was seen for history and physical consultation on 05/31/2018, for medical clearance for inpatient psychiatric hospitalization and treatment. The patient was medically cleared for inpatient psychiatric hospitalization and treatment. For further details, please refer to consultation documentation dated 05/31/2018. The patient reports plans to follow up at [facility] for ongoing outpatient medical treatment. ADMISSION LABS: 1. CBC within normal limits except hemoglobin was elevated at 19.6, hematocrit was elevated at 56.8, MPV was elevated at 12.1, eosinophils were low at 0.1, absolute monocytes elevated at 0.92, absolute eosinophils low at 0.01. 2. BMP within normal limits except BUN was elevated at 26 and glucose was elevated at 332. 3. Hemoglobin A1c elevated at 10.8. 4. Liver function within normal limits except conjugated bilirubin was elevated at 0.6, AST was elevated at 65. 5. Lipid panel within normal limits except VLDL cholesterol was elevated at 29. 6. Toxicology screen was non-negative for marijuana, negative for all other substances screened and negative for ethyl alcohol. 7. Valproic acid was less than 10.0. MAJOR PROCEDURES OR TESTS: None. HOSPITAL COURSE: The most prominent symptoms and behaviors while the patient was here were withdrawn from social interactions. The patient did present irritable and agitated when first arriving on the unit. Treatment modalities utilized were milieu and group therapy. Invega 6 mg p.o. daily was started to target mood symptoms, was tolerated with no report of side effects and with good response. Depakote liquid 750 mg p.o. twice daily was started to target mood symptoms, was tolerated with no report of side effects and with good response. Patient has improved considerably with no signs of psychiatric symptoms and no psychiatric symptoms expressed. Patient's acute psychosis due to recent substance use cleared, improving judgement and ability to care for himself and communicate his basic needs. Patient was able to communicate his plan for follow up for ongoing treatment at both [facility] and [facility]. Patient reports he has improved since admission, states to be in stable condition, feels safe to discharge, and he contracts for safety. Patients response to treatment was good. There were no adverse or unexpected results of treatment. The patient was safe throughout stay, active in treatment, engaged in groups, and was appropriate with staff. Patient met with treatment team prior to discharge to assess readiness to discharge and review discharge plan. Patient reports plan to follow up with [facility] for ongoing medical treatment and [facility] for ongoing mental health treatment following discharge today. The treatment team consensus is the patient in stable condition, has a safe discharge plan, and is ready to discharge today. CONDITION AT DISCHARGE: Patient is in stable condition and is no longer a danger to self or others, and is not gravely disabled due to mental illness. Patient is no longer in need of inpatient level of care, and can be safely and effectively treated within the community. The patients level of risk at time of discharge is low. MSE: The patient is casually dressed and with good hygiene , and looks stated age. Patient is sitting, posture is upright, and position is relaxed. Patient appears awake, alert, and responds appropriately and reasonably during interview. Patient is engaged, relates well to interviewer, and emotional facial expression is appropriate to situation and changes appropriately with topic. Patient is cooperative, makes comfortable eye contact , and movements are voluntary, deliberate, coordinated, and smooth and even with no inappropriate movements. Patient makes laryngeal sounds effortlessly and shares conversation appropriately; pace of conversation is appropriate, and stream of talking is fluent; articulation is clear and understandable; word choice is effortless and appropriate for education level; completes sentences, occasionally pausing to think; rate and volume are appropriate for interview and setting. Patient reports mood as euthymic. Patients affect is stable with full variable range, congruent with mood, and appropriate to speech and circumstances. Patient has linear and logical thinking, with no loose associations, tangential thought, thought blocking, concrete thinking, or any other signs of formal thought disorder. Patient denies suicidal and homicidal ideation, and denies hallucinations and delusions. Patient appears to be a reliable historian with sound judgement and good insight into current condition. Patient has no apparent dysfunction in recent or remote memory noted , and no evidence of gross cognitive dysfunction noted at any point during the interview. DISCHARGE DIAGNOSES: 1. Schizoaffective disorder. 2. Stimulant use disorder, amphetamine type. 3. Cannabis use disorder, severe. 4. Homelessness. CURRENT MEDICATIONS: After reviewing options risks and benefits with the patient, the patient agrees to continue 1. Albuterol 2 puffs IH q.4 hours p.r.n. 2. Metformin/HCL 250 mg p.o. twice daily. 3. Insulin, lispro FC three times daily with meal. 4. Lantus 20 units s.c. at bedtime. The patient reports he plans to follow up with his outpatient psychiatrist at [facility] for ongoing medication management and reports he plans to follow up at [facility], where he states he is currently established as a patient, for ongoing medical treatment. The patient reports he does not need any prescriptions for medications he is currently taking. Reports he plans to follow up on an outpatient basis for these medications. DISPOSITION: The patient left hospital independently and voluntarily with plans to stay at homeless [facility] in [place], [place]. FOLLOWUP: Patient reports plan to follow up with [facility] and [facility] after discharge. offensive coordinator reports the appropriate outpatient follow-up services have been established and outpatient appointments have been scheduled. The patient received written instructions with times and dates of outpatient follow-up appointments. The following follow-up recommendations were provided to the patient at discharge: Continue psychotropic medications as prescribed and attend appointments as scheduled. Report any side effects to a psychiatric outpatient provider, a primary care provider, or other health healthcare network consultant. Address any questions or problems concerning the psychotropic medications with a psychiatric outpatient provider, a primary care provider, or other health healthcare network consultant. Contact [facility] or [facility], or go to the nearest emergency room, if you are ever a danger to yourself/others, or unable to care for yourself. As soon as possible, establish a routine medication management treatment with a psychiatric provider, establish routine therapy appointments, and follow-up with a primary care provider. SUBSTANCE ABUSE BRIEF INTERVENTION: Brief intervention regarding the risks of cocaine and cannabis abuse is provided to patient with goal to reduce the risk of harm that could result from the continued use of cocaine and cannabis, with the general aim to investigate the problem, raise awareness of problem, develop a solution with the patient, recommend a specific change or activity, and motivate the patient toward change. Assess substance abuse behavior and give supportive advice about harm reduction, recommend a reduction in hazardous/at- risk consumption patterns, and facilitate referrals for additional specialized treatment with home care consultant. Intermediate goal is for the patient to quit and attend outpatient substance abuse treatment. Intervention focus on intermediate goals to allow for more immediate success in the treatment process to keep the patient motivated. Review following with patient: Cannabis use risks: Short-term use: impaired short-term memory, impaired motor coordination, altered judgement, in high doses paranoia and psychosis. Long-term use addiction, diminished life satisfaction and achievement, symptoms of chronic bronchitis, and increased risk of chronic psychosis disorders if predisposition to such disorders. In withdrawal anger, aggression irritability, anxiety and nervousness, decreased appetite or weight loss, restlessness, and sleep difficulties with strange dreams. Cocaine use risks: Short-term: erratic and violent behavior, panic attacks, paranoia, psychosis; heart rhythm problems, heart attack; stroke, seizure, coma. Long-term: Loss of sense of smell, nosebleeds, nasal damage and trouble swallowing from snorting; infection and of bowel tissue from decreased blood flow; poor nutrition and weight loss ; lung damage from smoking. OUTPATIENT SUBSTANCE ABUSE TREATMENT: Patient referred to outpatient provider and treatment for continued treatment related to substance abuse. LEGAL COURSE: The patient was admitted on an M1 hold for involuntary psychiatric hospitalization. Patient discharged today independently and voluntarily ATTITUDE AT TIME OF DISCHARGE: The patients attitude was positive at time of discharge, and patient reports looking forward to discharging today. The patient reports he feels safe to discharge, is no longer a danger to himself or others, is in stable condition, and contracts for safety. Patient states he will continue medications as prescribed, and establish medication management treatment with an outpatient provider after discharge. Patient reports he understands the information that has been provided to him, and he understands, accepts, and agrees to psychotropic medications. Patient describes internal protective factors as the coping skills he has learned while hospitalized here, and he plans to continue to practice these coping skills after discharge. LABS AND STUDIES: There were no pending labs or studies at time of discharge. ADVANCE DIRECTIVES: There were no advance directives on file, and patient was full code during this hospitalization. The following psychotropic medication treatment informed consent and recommendations were provided to the patient at time of discharge. Patient reports he understands, accepts, and agrees to the information that has been provided. PSYCHOTROPIC MEDICATION TREATMENT INFORMED CONSENT and RECOMMENDATIONS: Review nature of condition, diagnosis, and prognosis. Review nature and purpose of psychotropic medication treatment. Review type of psychotropic medications being prescribed. Review risk and benefits of psychotropic medication treatment. Review probable length of time will need to take medications. Review risk and benefits of not undergoing psychotropic medication treatment. Review alternative treatments to psychotropic medications. Review psychotropic medications contraindications, side effects, and importance of reporting any side effects to a psychiatric provider, primary care provider, or other health healthcare network consultant. Review importance of asking a psychiatric provider or primary care provider any questions or problems concerning the psychotropic medications. Review safety plan and the importance to contact [facility] or [facility] , or go to the nearest emergency room, if ever a danger to yourself/others, or unable to care for yourself. Recommend upon discharge to establish routine medication management treatment with a psychiatric provider, establish routine therapy appointments, and follow-up with a primary care provider. Verify patient understands, accepts, and agrees to the information that has been provided. /[id number]
[2018-06-02] MEDS ORDERED: PALIPERIDONE PALMITATE 234 MG/1.5 ML SYR IM ONE (09:00)
[2018-06-05] MEDS ORDERED: PALIPERIDONE PALMITATE 156 MG/ML SYR IM ONE (09:00)
== END 2018-06-01 12:10 | disposition home or self-care (01) | DRG 885 ==
LOC: EDUNIT# → BBEH 05-30 15:35
PROVIDERS: ADMIT Psychiatry & Neurology Psychiatry; ATTEND Registered Nurse
DX: F25.9 Schizoaffective disorder, unspecified (principal); F15.959 Other stimulant use, unspecified with stimulant-induced psychotic disorder, unspecified; F12.959 Cannabis use, unspecified with psychotic disorder, unspecified; Z59.0 Homelessness; Z72.0 Tobacco use; E11.9 Type 2 diabetes mellitus without complications; G40.909 Epilepsy, unspecified, not intractable, without status epilepticus; J44.9 Chronic obstructive pulmonary disease, unspecified; B19.20 Unspecified viral hepatitis C without hepatic coma; Z79.4 Long term (current) use of insulin
CPT/HCPCS: 80305; 81439-90; 82668-90; G0480; J1815; J2060

== ENCOUNTER 2018-08-12 07:58 | Inpatient (IN) | payer OTHER, MEDICAID ==
[2018-08-12] MEDS ORDERED: NS 2,400 ML IV ONE (08:06)
[2018-08-12] MEDS ORDERED: IPRATROPIUM/ALBUTEROL 3 ML DEYVIAL IH ONE (08:07)
--- NOTE | 2018-08-12 08:07 | EDPHY ---
H & P Stated Complaint: generalized weakness x2 days Time Seen by Provider: 08/12/18 08:05 HPI/ROS: CHIEF COMPLAINT: Generalized weakness, shortness of breath HISTORY OF PRESENT ILLNESS: The patient is a 62-year-old man with a history of schizophrenia, COPD, diabetes, seizure disorder and polysubstance abuse. He was at the homeless [facility] this morning and called EMS complaining that he felt weak. He reported that he had been feeling weak for about the last month. They however noticed that he was hypoxic and febrile and tachypneic. His oxygen level improved with supplementation. He denies chest pain. No vomiting or diarrhea. No trauma. Severity: Severe Modifying factors: Improved with oxygen REVIEW OF SYSTEMS: Constitutional: See HPI EENTM: denies Respiratory: See HPI Cardiac: denies: chest pain, irregular heart rate, lightheadedness, palpitations Gastrointestinal/Abdominal: denies: abdominal pain, diarrhea, nausea, vomiting, blood streaked stools Genitourinary: denies: dysuria, frequency, hematuria, pain Musculoskeletal: denies: joint pain, muscle pain Skin: denies: lesions, rash, jaundice, bruising Neurological: denies: headache, numbness, paresthesia, tingling, dizziness, weakness Hematologic/Lymphatic: denies: blood clots, easy bleeding, easy bruising Immunologic/allergic: denies: HIV/AIDS, transplant 10 systems reviewed and negative except as noted EXAM: GENERAL: Moderate distress, tachypneic HEAD: Atraumatic, normocephalic. EYES: Pupils equal round and reactive to light, extraocular movements intact, sclera anicteric, conjunctiva are normal. ENT: TMs normal, nares patent, oropharynx clear without exudates. Moist mucous membranes. NECK: Normal range of motion, supple without lymphadenopathy or JVD. LUNGS: Bilateral lower lobe rhonchi HEART: Regular rate and rhythm without murmurs, rubs or gallops. ABDOMEN: Soft, nontender, normoactive bowel sounds. No guarding, no rebound. No masses appreciated. BACK: No CVA tenderness, no spinal tenderness, step-offs or deformities EXTREMITIES: Normal range of motion, normal strength NEUROLOGICAL: Cranial nerves II through XII grossly intact. Normal speech, normal gait. 5/5 strength, normal movement in all extremities, normal sensation , normal reflexes PSYCH: Normal mood, normal affect. SKIN: Cracking and exposure changes to hands and feet Source: Patient Exam Limitations: No limitations - Personal History Current Tetanus/Diphtheria Vaccine: No Current Tetanus Diphtheria and Acellular Pertussis (TDAP): No - Medical/Surgical History Hx Asthma: No Hx Chronic Respiratory Disease: No Hx Diabetes: No Hx Cardiac Disease: No Hx Renal Disease: No Hx Cirrhosis: No Hx Alcoholism: No Hx HIV/AIDS: No Hx Splenectomy or Spleen Trauma: No Other PMH: COPD, Seizures, Schizoaffective disorder (Hx psychosis), Bipolar (Hx Manic episodes), hep C, polysubstance abuse - Family History Significant Family History: No pertinent family hx - Social History Smoking Status: Heavy smoker Alcohol Use: Heavy Drug Use: Other Constitutional: Initial Vital Signs Temperature (C) 39.2 C H 08/12/18 08:03 Heart Rate 113 H 08/12/18 08:03 Respiratory Rate 22 H 08/12/18 08:03 Blood Pressure 136/79 H 08/12/18 08:03 O2 Sat (%) 88 L 08/12/18 08:03 O2 Delivery Mode Nasal Cannula O2 (L/minute) 2 Allergies/Adverse Reactions: chlorpromazine HCl [From Thorazine] Allergy (Verified 05/29/18 11:19) codeine [Codeine] Allergy (Verified 05/29/18 11:19) Home Medications: Medication Instructions Recorded Herbals/Supplements -Info Only 1 ea PO DAILY 08/12/18 Ibuprofen [Motrin (*)] 200 - 400 mg PO Q6H PRN 08/12/18 Medical Decision Making - Diagnostics Imaging Results: Imaging Impressions Chest X-Ray 08/12/18 08:07 Impression: 1. No lobar pneumonia or effusion. 2. Chronic airways disease and minimal interstitial lung disease are unchanged. Imaging: Discussed imaging studies w/ call centre supervisor Radiologist ED Course/Re-evaluation: 9:15 a.m. The patient feels somewhat better after breathing treatment. Still tachypneic and requiring oxygen. X-rays reassuring however clinically a suspect pneumonia. Will start on antibiotics. Will give Tylenol for his fever. Will admit. Discussed with hospitalist service who will admit to [facility]. Differential Diagnosis: Partial list of the Differential diagnosis considered include but were not limited to; pneumonia, bronchitis, COPD, sepsis and although unlikely based on the history and physical exam, I also considered appendicitis, biliary disease, meningitis. - Data Points Laboratory Results: Laboratory Results 08/12/18 08:15 08/12/18 08:15 08/12/18 08/12/18 08/12/18 08:15 08:15 08:15 WBC RBC Hgb Hct MCV MCH MCHC RDW Plt Count MPV Neut % (Auto) Lymph % (Auto) [place] % (Auto) Eos % (Auto) Baso % (Auto) Nucleat RBC Rel Count Absolute Neuts (auto) Absolute Lymphs (auto) Absolute Monos (auto) Absolute Eos (auto) Absolute Basos (auto) Absolute Nucleated RBC Immature Gran % Immature Gran # RBC/WBC/PLT Morphology Platelet Estimate PT 13.2 SEC SEC (12.0-15.0) INR 1.04 (0.83-1.16) APTT 29.0 SEC SEC (23.0-38.0) VBG Lactic Acid Sodium 133 mEq/L L mEq/L (135-145) Potassium 4.3 mEq/L mEq/L (3.5-5.2) Chloride 98 mEq/L mEq/L (97-110) Carbon Dioxide 24 mEq/l mEq/l (22-31) Anion Gap 11 mEq/L mEq/L (6-14) BUN 16 mg/dL mg/dL (7-23) Creatinine 0.7 mg/dL mg/dL (0.7-1.3) Estimated GFR > 60 Glucose 199 mg/dL H mg/dL (70-100) Calcium 8.8 mg/dL mg/dL (8.5-10.4) Total Bilirubin 0.7 mg/dL mg/dL (0.1-1.4) NT-Pro-B Natriuret Pep 291 pg/mL H pg/mL (0-125) 08/12/18 08/12/18 08:15 08:15 WBC 9.08 10^3/uL 10^3/uL (3.80-9.50) RBC 5.44 10^6/uL 10^6/uL (4.40-6.38) Hgb 17.6 g/dL H g/dL (13.7-17.5) Hct 50.8 % % (40.0-51.0) MCV 93.4 fL fL (81.5-99.8) MCH 32.4 pg pg (27.9-34.1) MCHC 34.6 g/dL g/dL (32.4-36.7) RDW 14.2 % % (11.5-15.2) Plt Count 146 10^3/uL L 10^3/uL (150-400) MPV 10.8 fL fL (8.7-11.7) Neut % (Auto) 90.0 % H % (39.3-74.2) Lymph % (Auto) 5.4 % L % (15.0-45.0) Independence % (Auto) 4.1 % L % (4.5-13.0) Eos % (Auto) 0.0 % L % (0.6-7.6) Baso % (Auto) 0.2 % L % (0.3-1.7) Nucleat RBC Rel Count 0.0 % % (0.0-0.2) Absolute Neuts (auto) 8.17 10^3/uL H 10^3/uL (1.70-6.50) Absolute Lymphs (auto) 0.49 10^3/uL L 10^3/uL (1.00-3.00) Absolute Monos (auto) 0.37 10^3/uL 10^3/uL (0.30-0.80) Absolute Eos (auto) 0.00 10^3/uL L 10^3/uL (0.03-0.40) Absolute Basos (auto) 0.02 10^3/uL 10^3/uL (0.02-0.10) Absolute Nucleated RBC 0.00 10^3/uL 10^3/uL (0-0.01) Immature Gran % 0.3 % % (0.0-1.1) Immature Gran # 0.03 10^3/uL 10^3/uL (0.00-0.10) RBC/WBC/PLT Morphology TNP Platelet Estimate TNP PT INR APTT VBG Lactic Acid 1.0 mmol/L mmol/L (0.7-2.1) Sodium Potassium Chloride Carbon Dioxide Anion Gap BUN Creatinine Estimated GFR Glucose Calcium Total Bilirubin NT-Pro-B Natriuret Pep Medications Given: Albuterol/Ipratropium (Duoneb) 3 ml IH Q6HRS NARCISO Stop: 02/08/19 11:59 Last Admin: 08/12/18 11:19 Dose: 3 ml Ceftriaxone Sodium/Dextrose (Rocephin 1 Gm (Premix)) 50 mls @ 100 mls/hr IV DAILY NARCISO PRN Reason: Protocol Stop: 09/11/18 09:29 Last Admin: 08/12/18 10:08 Dose: 50 mls Insulin Human Lispro (Humalog Lispro) 0 unit SC TIDMEAL NARCISO PRN Reason: Protocol Stop: 02/08/19 11:59 Last Admin: 08/12/18 12:51 Dose: Not Given Prednisone (Prednisone) 40 mg PO DAILY NARCISO Stop: 02/08/19 10:44 Last Admin: 08/12/18 11:37 Dose: 40 mg Discontinued Medications Acetaminophen (Tylenol) 1,000 mg PO EDNOW ONE Stop: 08/12/18 09:13 Last Admin: 08/12/18 09:17 Dose: 1,000 mg Albuterol/Ipratropium (Duoneb) 3 ml IH EDNOW ONE Stop: 08/12/18 08:08 Last Admin: 08/12/18 08:25 Dose: 3 ml Sodium Chloride (Ns) 2,400 mls @ 4,800 mls/hr 30 ml/kg infuse over 30 min ( 2400 ml) IV EDNOW ONE PRN Reason: Protocol Stop: 08/12/18 08:35 Last Admin: 08/12/18 08:19 Dose: 2,400 mls Azithromycin 500 mg/ Dextrose 255 mls @ 255 mls/hr IV DAILY NARCISO PRN Reason: Protocol Stop: 09/11/18 09:29 Last Admin: 08/12/18 11:37 Dose: 255 mls Departure - Departure Disposition: [facility] Inpatient Acute Clinical Impression: Pneumonia Qualifiers: Pneumonia type: due to unspecified organism Laterality: unspecified laterality Lung location: unspecified part of lung Qualified Code(s): J18.9 - Pneumonia, unspecified organism COPD (chronic obstructive pulmonary disease) Qualifiers: COPD type: COPD with acute exacerbation Qualified Code(s): J44.1 - Chronic obstructive pulmonary disease with (acute) exacerbation Condition: Fair
[2018-08-12 08:32] LABS: PLATELET COUNT 146 10^3/uL (150-400)
[2018-08-12 08:41] LABS: INR 1.04 (0.83-1.16); PROTIME(PATIENT) 13.2 SEC (12.0-15.0)
[2018-08-12] MEDS ORDERED: ACETAMINOPHEN 500 MG TAB PO ONE (09:12)
[2018-08-12] MEDS ORDERED: ONDANSETRON 4 MG/2 ML VIAL IVP PRN (09:19)
[2018-08-12] MEDS ORDERED: ONDANSETRON DISINTEGRATING 4 MG TAB PO PRN (09:19)
[2018-08-12] MEDS ORDERED: D50W 25 GM/50 ML SYR IVP PRN (09:21)
[2018-08-12] MEDS ORDERED: AZITHROMYCIN IV 500 MG in D5W 250 ML IV SCH (09:30)
[2018-08-12] MEDS ORDERED: IPRATROPIUM/ALBUTEROL 3 ML DEYVIAL ONE (11:10)
[2018-08-12] MEDS: IPRATROPIUM/ALBUTEROL 3 ML DEYVIAL IH SCH ×3 (11:19→20:38)
[2018-08-12] MEDS: predniSONE 20 MG TAB PO SCH (11:37)
--- NOTE | 2018-08-12 12:08 | GHP ---
[f rep st] HISTORY AND PHYSICAL DATE OF ADMISSION: 08/12/2018 CHIEF COMPLAINT: Fevers and cough. HPI: A 62-year-old male with COPD, tobacco dependence, and schizoaffective disorder, who presents with weakness. This has been going on for the last month , but progressed over the last couple days. EMS was called, and they noted he was hypoxic, febrile, and tachypneic. He reports a chronic cough with white sputum, but has progressed with a greenish/yellow color over the last couple days. He has become more short of breath, especially with walking. No nausea, vomiting, or diarrhea. He has had a decreased appetite and oral intake. [place] and so is exposed to pathogens. REVIEW OF SYSTEMS: I completed a 10-point review of systems, negative except as noted in the HPI. PAST MEDICAL HISTORY: 1. COPD. 2. Diabetes. A1c of 10.8 in May. 3. Schizoaffective disorder. 4. Stimulant disorder. 5. THC dependence. 6. Homelessness. 7. Seizures. PAST SURGICAL HISTORY: Right IMMANUEL. Right cataract. SOCIAL HISTORY: Lives in a [place]. Smokes a pack a day. He cannot recall how many years. He smokes marijuana when he can get it. Occasional alcohol. FAMILY HISTORY: Denies CAD. HOME MEDICATIONS: He does not take any, but per a discharge summary recently, he was on albuterol, metformin, sliding scale insulin, and Lantus 20 units. ALLERGIES: Thorazine and codeine. PHYSICAL EXAM: VITAL SIGNS: Temperature is 39.2, blood pressure is 111/69, heart rate one-teens, respirations 24, and 88% on room air, 91 on 2.5 L. GENERAL: He is uncomfortable, diaphoretic, winnie face. HEENT: Dry mucous membranes. CV: Tachy, regular, no murmurs. +1 pitting edema on the left, +2 on the right. LUNGS: Poor air movement and diffuse wheezing. ABDOMEN: Soft and nontender. : No suprapubic tenderness. MUSCULOSKELETAL: 5/5 upper and lower extremity strength. SKIN: Cracked lesions between his knuckles on the bilateral hands. No purulence or surrounding cellulitis. PSYCHIATRIC: He is alert and oriented x3. NEUROLOGIC: 2 through 12 are intact. LABS: WBC 9, hemoglobin 17, hematocrit 50, platelets 146. Coags are within normal. Lactate 1. Sodium , potassium 4.3, chloride 98, carbon dioxide 24, creatinine 0.7, glucose 199. Total bilirubin 0.7. Urine is clean. Chest x-ray is personally reviewed by me. Peribronchial thickening. Mildly blunted costophrenic angle. No overt opacity. ASSESSMENT/PLAN: 1. Sepsis: Tachycardic and febrile, possible respiratory source. He is currently hemodynamically stable with a normal lactate. Chest x-ray is not convincing for pneumonia. We will check a respiratory panel. May have bronchitis. Urinalysis is negative. Blood cultures are pending. 2. Chronic obstructive pulmonary disease exacerbation: DuoNeb, prednisone, and azithromycin given the change in sputum production. 3. Diabetes: Sliding scale insulin. He has not been taking Lantus at home. May need to re-add this. 4. Tobacco dependence: Nicotine patch. 5. Bilateral lower extremity swelling: Right more swollen chronically after his hip surgery. We will check a BNP. 6. Schizoaffective disorder: He was recently hospitalized in May at [facility] and has been stable since then. 7. Seizure disorder. He is not on any home medications. 8. Diet: regular 9. DVT prophylaxis with Lovenox. DISPOSITION: Observation admission given sepsis, warranting further infectious evaluation, supportive care, and DuoNebs. /[id number]/MODL MTDD
[2018-08-12] MEDS: INSULIN LISPRO 100 UNIT/ML SC SCH ×2 (12:51→19:21)
[2018-08-12] MEDS: NICOTINE 21 MG/24 HR PATCH TD SCH (13:18)
--- NOTE | 2018-08-12 14:58 | ASMTCMCOM ---
CM Note CM Note Notes: Pt was admitted with fevers, cough. He has a hx of COPD, homelessness, schizoaffective d/o. He was admitted to [facility] in May 2018. He usually stays at the skilled nursing. CM will follow for any d/c needs. D/C plan: TBD Date Signed: 08/12/2018 02:57 PM Electronically Signed By:LUIS CARLOS Boyce
[2018-08-12] MEDS: INSULIN GLARGINE 100 UNITS/ML UNIT SC SCH (23:22)
[2018-08-13] MEDS: IPRATROPIUM/ALBUTEROL 3 ML DEYVIAL IH SCH ×4 (04:59→21:57)
[2018-08-13] MEDS: INSULIN LISPRO 100 UNIT/ML SC SCH ×3 (08:19→17:40)
[2018-08-13] MEDS: AZITHROMYCIN 250 MG TAB PO SCH (08:19)
[2018-08-13] MEDS: ENOXAPARIN 40 MG/0.4 ML SYR SC SCH (08:20)
[2018-08-13] MEDS: predniSONE 20 MG TAB PO SCH (08:20)
[2018-08-13] MEDS: ACETAMINOPHEN 325 MG TAB PO PRN ×2 (08:20→20:09)
[2018-08-13] MEDS: NICOTINE 21 MG/24 HR PATCH TD SCH (08:21)
--- NOTE | 2018-08-13 09:05 | HOSPPROG ---
Hospitalist Progress Note Assessment/Plan: #Sepsis: resolved. Negative resp PCR, no overt PNA. Could be bronchitis, atypical PNA. Will continue Azithro #Acute hypoxic resp insufficiency: due to COPD. Drops to 82%RA # COPD exacerbation: DuoNeb, prednisone, and azithromycin given the change in sputum production. # Diabetes: has not been taking insulin at home. Needs Lantus, resume. Sliding scale insulin. # Tobacco dependence: Nicotine patch. # Bilateral lower extremity swelling: Right more swollen chronically after his hip surgery. BNP min elevated #. Schizoaffective disorder: He was recently hospitalized in May at [facility] and has been stable since then. # Seizure disorder. He is not on any home medications. # DVT prophylaxis with Lovenox. Disp: inpatient admission until oxygen improves, homeless and no access to oxygen Subjective: dizzty with standing. Still coughing Objective: Vital Signs Temp Pulse Resp BP Pulse Ox 36.5 C 98 16 107/62 91 L 08/13/18 07:59 08/13/18 07:59 08/13/18 08:06 08/13/18 07:59 08/13/18 08:06 08/12/18 08/13/18 08/14/18 05:59 05:59 05:59 Output Total 1450 250 Balance -1450 -250 PT 13.2 SEC (12.0-15.0) 08/12/18 08:15 INR 1.04 (0.83-1.16) 08/12/18 08:15 - Time Spent With Patient Time Spent with Patient: greater than 35 minutes Time Spent with Patient: Greater than 35 minutes spent on this patients care, greater than 50% of time spent counseling, educating, and coordinating care regarding the above mentioned plan. - Physical Exam Constitutional: no apparent distress Eyes: PERRL Ears, Nose, Mouth, Throat: other (winnie cheeks) Cardiovascular: regular rate and rhythym Respiratory: expiratory wheeze, other (air movement improved) Gastrointestinal: normoactive bowel sounds, soft, non-tender abdomen Genitourinary: no bladder fullness Skin: warm Musculoskeletal: full muscle strength Neurologic: AAOx3, CN II-XII Intact Psychiatric: poor insight, poor judgement, poor memory ICD10 Worksheet Patient Problems: Problems Problem Status Onset COPD (chronic obstructive pulmonary disease) Acute Pneumonia Acute Acute psychosis Acute Altered mental status Acute Aspiration pneumonia Acute Cannabis dependence Acute Cocaine dependence Acute Hyperglycemia due to type 2 diabetes mellitus Acute Hypoxia Acute Schizoaffective disorder Acute Seizure Acute Seizure disorder Acute
--- NOTE | 2018-08-13 16:02 | PDMN ---
Medical Necessity Medical necessity: [facility] M100 COPD, A-2 days: 62 yo w/ cough and weakness. Eval reveals sepsis r/t URI. Initially OBS for workup/tx but pt requires additional MN for ongoing acute hypoxic resp insufficiency due to COPD, 82% on RA, cont nebs, steroids, antibx. Meets [facility] IP criteria for COPD w/ new onset hypoxemia that persists despite obs care tx. Change to IP status 08/13/18@1326 per MD order. Hx COPD, DM, schizoaffective do, stimulant d/o, THC dependence, homelessness, seizures
[2018-08-13] MEDS: INSULIN GLARGINE 100 UNITS/ML UNIT SC SCH (20:10)
[2018-08-14] MEDS: IPRATROPIUM/ALBUTEROL 3 ML DEYVIAL IH SCH (05:52)
[2018-08-14 07:26] VITALS: BP 110/67
[2018-08-14] MEDS ORDERED: INSULIN GLARGINE 100 UNITS/ML UNIT SC SCH (08:05)
[2018-08-14] MEDS: AZITHROMYCIN 250 MG TAB PO SCH (08:08)
[2018-08-14] MEDS: predniSONE 20 MG TAB PO SCH (08:08)
[2018-08-14] MEDS: INSULIN LISPRO 100 UNIT/ML SC SCH (08:08)
--- NOTE | 2018-08-14 08:08 | HOSPPROG ---
Hospitalist Progress Note Assessment/Plan: #Sepsis: resolved. Negative resp PCR, no overt PNA. Could be bronchitis, atypical PNA. Will continue Azithro #Acute hypoxic resp insufficiency: due to COPD. Drops to 82%RA # COPD exacerbation: DuoNeb, prednisone, and azithromycin given the change in sputum production. # Diabetes with hyperglycemia: worse with steroids. Increase Glargine, SSI. # Tobacco dependence: Nicotine patch. # Bilateral lower extremity swelling: Right more swollen chronically after his hip surgery. BNP min elevated #. Schizoaffective disorder: He was recently hospitalized in May at [facility] and has been stable since then. # Seizure disorder. He is not on any home medications. # DVT prophylaxis with Lovenox. Disp: DC today Subjective: " I want to go" Objective: Vital Signs Temp Pulse Resp BP Pulse Ox 36.7 C 68 16 110/67 91 L 08/14/18 07:20 08/14/18 07:20 08/14/18 07:20 08/14/18 07:20 08/14/18 07:20 08/13/18 08/14/18 08/15/18 05:59 05:59 05:59 Output Total 400 Balance -400 PT 13.2 SEC (12.0-15.0) 08/12/18 08:15 INR 1.04 (0.83-1.16) 08/12/18 08:15 - Time Spent With Patient Time Spent with Patient: greater than 35 minutes Time Spent with Patient: Greater than 35 minutes spent on this patients care, greater than 50% of time spent counseling, educating, and coordinating care regarding the above mentioned plan. Physical Exam: Did not complete full exam since patient leaving quickly and declined - Physical Exam Constitutional: unkempt Eyes: PERRL Ears, Nose, Mouth, Throat: moist mucous membranes Gastrointestinal: normoactive bowel sounds Musculoskeletal: full muscle strength Neurologic: AAOx3, CN II-XII Intact ICD10 Worksheet Patient Problems: Problems Problem Status Onset COPD (chronic obstructive pulmonary disease) Acute Pneumonia Acute Acute psychosis Acute Altered mental status Acute Aspiration pneumonia Acute Cannabis dependence Acute Cocaine dependence Acute Hyperglycemia due to type 2 diabetes mellitus Acute Hypoxia Acute Schizoaffective disorder Acute Seizure Acute Seizure disorder Acute
[2018-08-14] MEDS: ENOXAPARIN 40 MG/0.4 ML SYR SC SCH (08:09)
[2018-08-14] MEDS: NICOTINE 21 MG/24 HR PATCH TD SCH (08:09)
--- NOTE | 2018-08-14 09:20 | ASMTDCNOTE ---
Case Management Discharge Discharge Order Complete? Answers: Yes Patient to Obtain Answers: Independently Medications Transportation Arranged Answers: Other Notes: self Family Notified Answers: No Discharge Comments Notes: Pt was dressed and standing at the RN station when CM arrived. Pt wanted to leave the hospital and was impatient with CM and RN as they tried to prepare discharge. Pt stated he did want an appointment tomorrow with [facility] to follow up with psychiatrist and with PCP but stated he wasn't regular enough to remember his PCP's name. While CM was on the phone to make the appointment, pt left. [facility] said pt could go to [facility] as a walk in tomorrow. Pt was out the door by the time CM got off the phone. No bus pass was provided. Date Signed: 08/14/2018 09:19 AM Electronically Signed By:Shanell Coats
--- NOTE | 2018-08-14 09:21 | ASMTLACE ---
[facility] Length of stay for Answers: 2 days current admission Acuity / Level of Answers: Yes Care: Did the patient have an inpatient admission? Comorbidities - select Answers: Chronic pulmonary disease all that apply Diabetes (uncontrolled or controlled) Other Notes: seizures # of Emergency department Answers: 5-8 visits in the last 6 months Social determinants Answers: Homelessness (street, halfway) Mental health diagnosis (anxiety, depression, pers onality disorders, etc.) Score: 19 Date Signed: 08/14/2018 09:20 AM Electronically Signed By:Shanell Coats
--- NOTE | 2018-08-14 09:25 | ASDISCHSUM ---
Discharge Information Plan Status:Homeless/Senior Living Medically Cleared to Leave:08/14/2018 Discharge Date:08/14/2018 09:15 AM CM D/C Disposition:Stre[facility] (Homeless) ADT D/C Disposition:Home, Routine, Self-Care Projected Discharge Date:08/14/2018 09:15 AM Transportation at D/C:Self Discharge Delay Reason: Follow-Up Date:08/14/2018 09:15 AM Discharge Slot: Final Diagnosis:PNA, COPD Placement Information Patient Contact Information Contact Name:ILDA Relationship:Sister Address: Home Phone: Work Phone: City: Alternate Phone: State/Zip Code: Email: Financial Information Financial Class:Medicare Primary Plan Desc:MEDICARE OUTPATIENT Primary Plan Number:[id number] Secondary Plan Desc:MEDICAID HEALTH [place] Secondary Plan Number:[id number] Assessment Information LACE LACE Length of stay for Answers: 2 days current admission Acuity / Level of Answers: Yes Care: Did the patient have an inpatient admission? Comorbidities - select Answers: Chronic pulmonary disease all that apply Diabetes (uncontrolled or controlled) Other Notes: seizures # of Emergency department Answers: 5-8 visits in the last 6 months Social determinants Answers: Homelessness (street, skilled nursing) Mental health diagnosis (anxiety, depression, pers onality disorders, etc.) Score: 19 Date Signed: 08/14/2018 09:20 AM Electronically Signed By:Shanell Coats [facility] CM Progress Note CM Note CM Note Notes: Pt was admitted with fevers, cough. He has a hx of COPD, homelessness, schizoaffective d/o. He was admitted to [facility] in May 2018. He usually stays at the skilled nursing. CM will follow for any d/c needs. D/C plan: TBD Date Signed: 08/12/2018 02:57 PM Electronically Signed By:LUIS CARLOS Boyce Case Management Discharge Plan Note Case Management Discharge Discharge Order Complete? Answers: Yes Patient to Obtain Answers: Independently Medications Transportation Arranged Answers: Other Notes: self Family Notified Answers: No Discharge Comments Notes: Pt was dressed and standing at the RN station when CM arrived. Pt wanted to leave the hospital and was impatient with CM and RN as they tried to prepare discharge. Pt stated he did want an appointment tomorrow with [facility] to follow up with psychiatrist and with PCP but stated he wasn't regular enough to remember his PCP's name. While CM was on the phone to make the appointment, pt left. [facility] said pt could go to [facility] as a walk in tomorrow. Pt was out the door by the time CM got off the phone. No bus pass was provided. Date Signed: 08/14/2018 09:19 AM Electronically Signed By:Shanell Coats Intervention Information
--- NOTE | 2018-08-14 20:45 | GDS ---
[f rep st] DISCHARGE SUMMARY DISCHARGE DIAGNOSES: 1. Sepsis. 2. Acute hypoxic respiratory insufficiency. 3. Chronic obstructive pulmonary disease exacerbation. 4. Diabetes with hyperglycemia. 5. Tobacco dependence. 6. Bilateral lower extremity swelling. 7. Schizoaffective disorder. 8. Seizure disorder. HISTORY OF PRESENT ILLNESS: A 62-year-old homeless male with schizoaffective disorder, diabetes, pre sents with fevers, chills, malaise. These symptoms occurred for the last couple days. He reported a chronic cough with white sputum but has progressed with greenish yellow color over the last couple d ays and has become more short of breath. HOSPITAL COURSE BY PROBLEM: 1. Sepsis: Secondary to respiratory source. Respiratory panel was negative. Suspect possibly an a typical pneumonia. Symptoms improved with antibiotics. Will continue azithromycin for 2 more days. 2. COPD exacerbation. Improved with nebs and steroids, azithromycin. 3. Diabetes. Was discharged on Lantus at last admission but has not been using. He did have hyperg lycemia with steroids here. He is willing to take metformin. I have prescribed this. 4. Tobacco dependence. Nicotine patch. Counseled on cessation. 5. Bilateral lower extremity swelling. BNP within normal. 6. Schizoaffective border. He was recently hospitalized at [facility], not on medications. 7. Seizure disorder. He is not on home medications. DISPOSITION: Patient is stable for discharge to the senior care. NEW MEDICATIONS: Azithromycin. FOLLOWUP: [facility]. /[id number]/MODL
== END 2018-08-14 09:15 | disposition home or self-care (01) | DRG 871 ==
LOC: EDUNIT# → F3E 10:15 → OBSVTOIN 08-13 13:26
PROVIDERS: ADMIT Internal Medicine; ATTEND Internal Medicine
DX: A41.9 Sepsis, unspecified organism (principal); J18.9 Pneumonia, unspecified organism; J44.1 Chronic obstructive pulmonary disease with (acute) exacerbation; J44.0 Chronic obstructive pulmonary disease with (acute) lower respiratory infection; J96.01 Acute respiratory failure with hypoxia; E11.65 Type 2 diabetes mellitus with hyperglycemia; R60.0 Localized edema; F25.0 Schizoaffective disorder, bipolar type; G40.909 Epilepsy, unspecified, not intractable, without status epilepticus; F17.210 Nicotine dependence, cigarettes, uncomplicated; B19.20 Unspecified viral hepatitis C without hepatic coma; Z79.4 Long term (current) use of insulin; Z59.0 Homelessness; Z96.641 Presence of right artificial hip joint
CPT/HCPCS: 96374; 97163-GP; G0378; J0456; J0696; J1650; J1815; J7512

== ENCOUNTER 2018-08-20 21:28 | Inpatient (IN) | payer OTHER, MEDICAID | END 2018-08-23 11:45 | disposition home or self-care (01) | LOC: BBEH 08-21 15:35 ==